=== PATIENT | female | born 1955 | race African-American/Black ===

== ENCOUNTER 2022-03-24 09:55 | Inpatient (IN) | payer MEDICARE, OTHER ==
[2022-03-24] MEDS ORDERED: methylPREDNISolone SOD SUCCI 125 MG/2 ML VIAL IV STA (09:56)
[2022-03-24] MEDS ORDERED: MAGNESIUM SULFATE-D5W PMX 1 GM in DEXTROSE/WATER 1 100ML.BAG IVPB STA (09:56)
[2022-03-24 10:12] LABS: Basophils # (A) 0.2 k/uL (0-0.2); Basophils % (A) 3 %; Eosinophils # (A) 0.1 k/uL (0-0.7); Eosinophils % (A) 1 %; HCT 44.7 % (34.0-46.0); HGB 14.5 gm/dL (11.4-16.0); Hypochromasia Slight; Lymphocytes # (A) 3.7 k/uL (1.0-4.8); Lymphocytes % (A) 40 %; MCH 29.3 pg (25.0-35.0); MCHC 32.5 g/dL (31.0-37.0); MCV 90.2 fL (80.0-100.0); Mean Platelet Volume 9.2; Monocytes # (A) 0.6 k/uL (0-1.0); Monocytes % (A) 6 %; Neutrophils # (A) 4.2 k/uL (1.3-7.7); Neutrophils % (A) 46 %; Platelet Count 221 k/uL (150-450); RBC 4.96 m/uL (3.80-5.40); RDW 13.7 % (11.5-15.5); WBC 9.1 k/uL (3.8-10.6)
--- NOTE | 2022-03-24 10:21 | ED ---
SOB HPI - General Chief Complaint: Shortness of Breath Stated Complaint: SOB Time Seen by Provider: 03/24/22 09:56 Source: patient, EMS, RN notes reviewed Mode of arrival: EMS Limitations: no limitations - History of Present Illness Initial Comments: 66-year-old female history of COPD who states she's had shortness of breath and exertional dyspnea for the past 3 days. Noted by paramedics have elevated blood pressure 180/120 and occasional PVCs on the monitor. He states she's had no overt fevers chills or sweats she did cough up some yellow phlegm but mostly is been clear. No chest pain reported no relief from her home medications. She states she had some relief from treatment given and route to. MD Complaint: shortness of breath, cough - Related Data Home Medications Medication Instructions Recorded Confirmed Metoprolol Succinate [Toprol XL] 100 mg PO DAILY 03/24/22 03/24/22 NIFEdipine [Procardia XL] 90 mg PO DAILY 03/24/22 03/24/22 cloNIDine HCL [Catapres] 0.3 mg PO TID 03/24/22 03/24/22 Allergies Allergy/AdvReac Type Severity Reaction Status Date / Time No Known Allergies Allergy Verified 03/24/22 12:13 Review of Systems ROS Statement: Those systems with pertinent positive or pertinent negative responses have been documented in the HPI. ROS Other: All systems not noted in ROS Statement are negative. Past Medical History Past Medical History: COPD, Hypertension, Renal Disease History of Any Multi-Drug Resistant Organisms: None Reported Past Surgical History: Cholecystectomy Additional Past Surgical History / Comment(s): Right kidney removed Past Psychological History: Depression Smoking Status: Former smoker Past Alcohol Use History: None Reported Past Drug Use History: None Reported General Exam - General Exam Comments Initial Comments: This is a well-developed awake alert oriented 4 female Limitations: no limitations General appearance: alert, anxious, in distress Head exam: Present: atraumatic, normocephalic, normal inspection Eye exam: Present: normal appearance, PERRL, EOMI. Absent: scleral icterus, conjunctival injection, periorbital swelling ENT exam: Present: normal exam, mucous membranes moist Neck exam: Present: normal inspection, full ROM, other. Absent: tenderness, meningismus, lymphadenopathy Respiratory exam: Present: wheezes, accessory muscle use. Absent: respiratory distress, rales, rhonchi, stridor Cardiovascular Exam: Present: normal rhythm, tachycardia, normal heart sounds. Absent: systolic murmur, diastolic murmur, rubs, gallop, clicks GI/Abdominal exam: Present: soft, normal bowel sounds. Absent: distended, tenderness, guarding, rebound, rigid Extremities exam: Present: normal inspection, full ROM, normal capillary refill. Absent: tenderness, pedal edema, joint swelling, calf tenderness Back exam: Present: normal inspection Neurological exam: Present: alert, oriented X3, CN II-XII intact Psychiatric exam: Present: normal affect, normal mood Skin exam: Present: warm, dry, intact, normal color. Absent: rash Course Vital Signs 03/24/22 03/24/22 03/24/22 09:56 10:39 10:53 Temperature 98.3 F Pulse Rate 134 H 104 H Respiratory 24 24 24 Rate Blood Pressure 174/117 171/117 O2 Sat by Pulse 99 100 Oximetry 03/24/22 03/24/22 03/24/22 10:59 11:05 11:10 Temperature Pulse Rate 106 H 101 H 109 H Respiratory 18 20 Rate Blood Pressure 146/99 O2 Sat by Pulse 99 Oximetry 03/24/22 13:17 Temperature Pulse Rate 96 Respiratory 20 Rate Blood Pressure 149/93 O2 Sat by Pulse 100 Oximetry - Reevaluation(s) Reevaluation #1: 03/24/22 13:41 Patient did get some relief after the initial treatment. Still diffusely wheezing however. Patient also has elevated d-dimer CAT scan ordered. Medical Decision Making - Lab Data Result diagrams: 03/24/22 10:03 03/24/22 10:03 Lab Results 03/24/22 03/24/22 03/24/22 Range/Units 10:03 10:03 10:03 WBC 9.1 (3.8-10.6) k/uL RBC 4.96 (3.80-5.40) m/uL Hgb 14.5 (11.4-16.0) gm/dL Hct 44.7 (34.0-46.0) % MCV 90.2 (80.0-100.0) fL MCH 29.3 (25.0-35.0) pg MCHC 32.5 (31.0-37.0) g/dL RDW 13.7 (11.5-15.5) % Plt Count 221 (150-450) k/uL MPV 9.2 Neutrophils % 46 % Lymphocytes % 40 % Monocytes % 6 % Eosinophils % 1 % Basophils % 3 % Neutrophils # 4.2 (1.3-7.7) k/uL Lymphocytes # 3.7 (1.0-4.8) k/uL Monocytes # 0.6 (0-1.0) k/uL Eosinophils # 0.1 (0-0.7) k/uL Basophils # 0.2 (0-0.2) k/uL Hypochromasia Slight PT 11.8 (9.0-12.0) sec INR 1.1 (<1.2) APTT 27.1 (22.0-30.0) sec D-Dimer 2.24 H (<0.60) mg/L FEU Sodium 139 (137-145) mmol/L Potassium 4.1 (3.5-5.1) mmol/L Chloride 99 (98-107) mmol/L Carbon Dioxide 29 (22-30) mmol/L Anion Gap 11 mmol/L BUN 10 (7-17) mg/dL Creatinine 0.83 (0.52-1.04) mg/dL Est GFR (CKD-EPI)AfAm 86 (>60 ml/min/1.73 sqM) Est GFR (CKD-EPI)NonAf 75 (>60 ml/min/1.73 sqM) Glucose 196 H (74-99) mg/dL Plasma Lactic Acid Dewayne (0.7-2.0) mmol/L Calcium 8.9 (8.4-10.2) mg/dL Magnesium 1.7 (1.6-2.3) mg/dL Total Bilirubin 0.7 (0.2-1.3) mg/dL AST 23 (14-36) U/L ALT 13 (4-34) U/L Alkaline Phosphatase 102 (38-126) U/L Troponin I (0.000-0.034) ng/mL NT-Pro-B Natriuret Pep pg/mL Total Protein 7.8 (6.3-8.2) g/dL Albumin 4.7 (3.5-5.0) g/dL Influenza Type A (PCR) (Not Detectd) Influenza Type B (PCR) (Not Detectd) RSV (PCR) (Not Detectd) SARS-CoV-2 (PCR) (Not Detectd) 03/24/22 03/24/22 03/24/22 Range/Units 10:03 10:03 10:03 WBC (3.8-10.6) k/uL RBC (3.80-5.40) m/uL Hgb (11.4-16.0) gm/dL Hct (34.0-46.0) % MCV (80.0-100.0) fL MCH (25.0-35.0) pg MCHC (31.0-37.0) g/dL RDW (11.5-15.5) % Plt Count (150-450) k/uL MPV Neutrophils % % Lymphocytes % % Monocytes % % Eosinophils % % Basophils % % Neutrophils # (1.3-7.7) k/uL Lymphocytes # (1.0-4.8) k/uL Monocytes # (0-1.0) k/uL Eosinophils # (0-0.7) k/uL Basophils # (0-0.2) k/uL Hypochromasia PT (9.0-12.0) sec INR (<1.2) APTT (22.0-30.0) sec D-Dimer (<0.60) mg/L FEU Sodium (137-145) mmol/L Potassium (3.5-5.1) mmol/L Chloride (98-107) mmol/L Carbon Dioxide (22-30) mmol/L Anion Gap mmol/L BUN (7-17) mg/dL Creatinine (0.52-1.04) mg/dL Est GFR (CKD-EPI)AfAm (>60 ml/min/1.73 sqM) Est GFR (CKD-EPI)NonAf (>60 ml/min/1.73 sqM) Glucose (74-99) mg/dL Plasma Lactic Acid Dewayne 1.1 (0.7-2.0) mmol/L Calcium (8.4-10.2) mg/dL Magnesium (1.6-2.3) mg/dL Total Bilirubin (0.2-1.3) mg/dL AST (14-36) U/L ALT (4-34) U/L Alkaline Phosphatase (38-126) U/L Troponin I <0.012 (0.000-0.034) ng/mL NT-Pro-B Natriuret Pep 181 pg/mL Total Protein (6.3-8.2) g/dL Albumin (3.5-5.0) g/dL Influenza Type A (PCR) (Not Detectd) Influenza Type B (PCR) (Not Detectd) RSV (PCR) (Not Detectd) SARS-CoV-2 (PCR) (Not Detectd) 03/24/22 Range/Units 10:14 WBC (3.8-10.6) k/uL RBC (3.80-5.40) m/uL Hgb (11.4-16.0) gm/dL Hct (34.0-46.0) % MCV (80.0-100.0) fL MCH (25.0-35.0) pg MCHC (31.0-37.0) g/dL RDW (11.5-15.5) % Plt Count (150-450) k/uL MPV Neutrophils % % Lymphocytes % % Monocytes % % Eosinophils % % Basophils % % Neutrophils # (1.3-7.7) k/uL Lymphocytes # (1.0-4.8) k/uL Monocytes # (0-1.0) k/uL Eosinophils # (0-0.7) k/uL Basophils # (0-0.2) k/uL Hypochromasia PT (9.0-12.0) sec INR (<1.2) APTT (22.0-30.0) sec D-Dimer (<0.60) mg/L FEU Sodium (137-145) mmol/L Potassium (3.5-5.1) mmol/L Chloride (98-107) mmol/L Carbon Dioxide (22-30) mmol/L Anion Gap mmol/L BUN (7-17) mg/dL Creatinine (0.52-1.04) mg/dL Est GFR (CKD-EPI)AfAm (>60 ml/min/1.73 sqM) Est GFR (CKD-EPI)NonAf (>60 ml/min/1.73 sqM) Glucose (74-99) mg/dL Plasma Lactic Acid Dewayne (0.7-2.0) mmol/L Calcium (8.4-10.2) mg/dL Magnesium (1.6-2.3) mg/dL Total Bilirubin (0.2-1.3) mg/dL AST (14-36) U/L ALT (4-34) U/L Alkaline Phosphatase (38-126) U/L Troponin I (0.000-0.034) ng/mL NT-Pro-B Natriuret Pep pg/mL Total Protein (6.3-8.2) g/dL Albumin (3.5-5.0) g/dL Influenza Type A (PCR) Not Detected (Not Detectd) Influenza Type B (PCR) Not Detected (Not Detectd) RSV (PCR) Not Detected (Not Detectd) SARS-CoV-2 (PCR) Not Detected (Not Detectd) - EKG Data -: EKG Interpreted by Me EKG Comments: Sinus tachycardia rate 119. Interval 187 QRS duration 75 daily since QTC 284/355 left ventricular hypertrophy noted. This EKG was read by me. - Radiology Data Radiology results: image reviewed (I did evaluate the imaging studies evidence of COPD no definitive consolidation. CAT scan showed no evidence of pulmonary emboli.) Critical Care Time Critical Care Time: Yes Total Critical Care Time: 31 Critical Care Time: Critical care time including initial presentation with history physical discussed with paramedics upon arrival multiple reevaluation the patient response to therapy discussed with patient family regarding findings discussed with the main physician admission orders and documentation of the above I did discuss case with Dr. mobley Disposition Clinical Impression: Acute exacerbation of chronic obstructive pulmonary disease, Acute respiratory distress syndrome in adult Disposition: ADMITTED IP TO THIS [facility] Condition: Fair Referrals: Nonstaff,Physician [Primary Care Provider] - 1-2 days Decision Date: 03/24/22 Decision Time: 13:43
[2022-03-24 10:25] LABS: INR 1.1 (<1.2); Partial Thromboplastin Time 27.1 sec (22.0-30.0); Prothrombin Time 11.8 sec (9.0-12.0)
[2022-03-24 10:28] LABS: Albumin 4.7 g/dL (3.5-5.0); Calcium 8.9 mg/dL (8.4-10.2); Magnesium 1.7 mg/dL (1.6-2.3); Potassium 4.1 mmol/L (3.5-5.1); Total Bilirubin 0.7 mg/dL (0.2-1.3); Total Protein 7.8 g/dL (6.3-8.2)
--- NOTE | 2022-03-24 10:30 | XR ---
EXAMINATION TYPE: XR chest 2V DATE OF EXAM: 03/24/2022 COMPARISON: NONE HISTORY: Difficulty in breathing. TECHNIQUE: Frontal and lateral views of the chest are obtained. FINDINGS: Background chronic emphysematous changes are present. There is no focal air space opacity, pleural effusion, or pneumothorax seen. Cardiomegaly with ectatic thoracic aorta is noted. The osse ous structures are intact. IMPRESSION: Chronic emphysematous change and cardiomegaly without acute pulmonary process.
[2022-03-24] MEDS: IPRATROPIUM-ALBUTEROL 3 ML NEB INHALATION STA (10:59)
--- NOTE | 2022-03-24 12:23 | CT ---
EXAMINATION TYPE: CT angio chest DATE OF EXAM: 03/24/2022 COMPARISON: Same day chest x-ray HISTORY: Elevated d-dimer, SOB. Hx COPD CT DLP: 223 mGycm. Automated Exposure Control for Dose Reduction was Utilized. CONTRAST: CTA scan of the thorax is performed with IV Contrast, patient injected with 100 mL of Isovue 370, pul monary embolism protocol. MIP Images are created on CT scanner and reviewed. FINDINGS: LUNGS: Exam slightly suboptimal as patient had difficulty holding breath. This limits evaluation for subcentimeter nodules. There is 5 mm calcified nodule or benign granuloma in the right middle lobe ax ial image 67. Moderate underlying emphysematous changes present greatest in the upper lungs. No suspi cious focal consolidation. No pleural effusion or pneumothorax seen bilaterally. Overall mosaic atten uation suggest mild edema. MEDIASTINUM: There is satisfactory enhancement of the pulmonary artery and its branches, there is no CT evidence for pulmonary embolism. Enlarged main pulmonary artery identified consistent with underly ing pulmonary artery hypertension. Satisfactory enhancement of adjacent ascending aorta measures up t o 4.2 cm in diameter axial image 52. Moderate peripheral calcified plaque in the aortic arch. No line ar hypodensity to suggest dissection. There are no greater than 1 cm noncalcified hilar or mediastina l lymph nodes. Mild cardiomegaly. No pericardial effusion is seen. Reflux of contrast into IVC and he patic veins suggests degree of right heart failure. Calcified right paratracheal and tracheobronchial lymph nodes are seen. OTHER: Occasional calcification in the spleen. Short term with calcified splenic artery. Severe fecal prominence in the region of the hepatic flexure is partially imaged. Remainder small and large bowel loops show no suspicious dilatation. Correlate clinically. IMPRESSION: 1. No CT evidence for acute pulmonary embolism. 2. Evidence of old granulomatous disease. Moderate emphysematous change and cardiomegaly without acut e pulmonary process. Correlate for mild CHF exacerbation. Correlate for underlying pulmonary artery h ypertension and right heart failure.
[2022-03-24] MEDS ORDERED: ACETAMINOPHEN TAB 325 MG TAB PO PRN (13:45)
[2022-03-24] MEDS ORDERED: NALOXONE 0.4 MG/ML 1 ML VIAL IVP PRN (13:45)
[2022-03-24] MEDS: IPRATROPIUM-ALBUTEROL 3 ML NEB INHALATION SCH ×2 (15:05→19:24)
[2022-03-24] MEDS: cloNIDine HCL 0.1 MG TAB PO SCH ×2 (15:22→21:50)
[2022-03-24] MEDS: methylPREDNISolone SOD SUCCI 125 MG/2 ML VIAL IV SCH ×2 (17:57→23:35)
[2022-03-24] MEDS ORDERED: hydrALAZINE HCL 25 MG TAB PO PRN (21:01)
[2022-03-24] MEDS ORDERED: DEXTROSE 50% SYRINGE 50 ML IVP PRN ×2 (21:01)
--- NOTE | 2022-03-24 21:08 | P.HPIM ---
History of Present Illness This is a pleasant 66 years old female with past medical history of hypertension, COPD, status post right kidney removal and depression. Presents because of dyspnea for 2 days duration Associated with coughing and yellow phlegm with no chest pain No diarrhea or vomiting. 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 She still smokes about 5 cigarettes specific today and she was counseled and she agrees and she wants nicotine patch. No alcohol or illicit drugs Vitals stable, blood pressure 140/100. She is afebrile. She is requiring 4 L of oxygen per minute to keep saturation mid 90s. CBC and BMP and liver enzymes are unremarkable. Troponin is negative. ProBNP is 181. anne and influenza virus is negative. CTA of the chest showing no pulmonary embolism but emphysematous changes. She is currently on Solu-Medrol and augmenting with pulmonary team consulted Review of Systems Review of systems CONSTITUTIONAL: No fever, no malaise, no fatigue. HEENT: No recent visual problems or hearing problems. Denied any sore throat. CARDIOVASCULAR: No orthopnea, PND, no palpitations, no syncope. PULMONARY: No chest wall tenderness, no hemoptysis. GASTROINTESTINAL: No diarrhea, no nausea, no vomiting, no abdominal pain. Normoactive bowel sounds. NEUROLOGICAL: No headaches, no weakness, no numbness. HEMATOLOGICAL: Denies any bleeding or petechiae. GENITOURINARY: Denies any burning micturition, frequency, or urgency. MUSCULOSKELETAL/RHEUMATOLOGICAL: Denies any joint pain, swelling, or any muscle pain. ENDOCRINE: Denies any polyuria or polydipsia. Past Medical History Past Medical History: COPD, Hypertension, Renal Disease History of Any Multi-Drug Resistant Organisms: None Reported Past Surgical History: Cholecystectomy Additional Past Surgical History / Comment(s): Right kidney removed Past Psychological History: Depression Smoking Status: Former smoker Past Alcohol Use History: None Reported Past Drug Use History: None Reported Medications and Allergies Home Medications Medication Instructions Recorded Confirmed Type Metoprolol Succinate [Toprol XL] 100 mg PO DAILY 03/24/22 03/24/22 History NIFEdipine [Procardia XL] 90 mg PO DAILY 03/24/22 03/24/22 History cloNIDine HCL [Catapres] 0.3 mg PO TID 03/24/22 03/24/22 History Allergies Allergy/AdvReac Type Severity Reaction Status Date / Time No Known Allergies Allergy Verified 03/24/22 12:13 Physical Exam Vitals: Vital Signs Temp Pulse Resp BP Pulse Ox 03/24/22 13:17 96 20 149/93 100 03/24/22 11:10 109 H 20 03/24/22 11:05 101 H 146/99 99 03/24/22 10:59 106 H 18 03/24/22 10:53 104 H 24 171/117 100 03/24/22 10:39 24 03/24/22 09:56 98.3 F 134 H 24 174/117 99 Intake and Output 03/23/22 03/24/22 03/24/22 22:59 06:59 14:59 Other: Weight 63.503 kg GENERAL: The patient is alert and oriented x3, not in any acute distress. Well developed, well nourished. HEENT: Pupils are round and equally reacting to light. EOMI. No scleral icterus. No conjunctival pallor. Normocephalic, atraumatic. No pharyngeal erythema. No thyromegaly. CARDIOVASCULAR: S1 and S2 present. No murmurs, rubs, or gallops. -PULMONARY: Chest is clear to auscultation,. Bilateral scattered wheezing no rackles. ABDOMEN: Soft, nontender, nondistended, normoactive bowel sounds. No palpable organomegaly. MUSCULOSKELETAL: No joint swelling or deformity. EXTREMITIES: No cyanosis, clubbing, or pedal edema. NEUROLOGICAL: Gross neurological examination did not reveal any focal deficits. SKIN: No rashes. no petechiae. Results CBC & Chem 7: 03/24/22 10:03 03/24/22 10:03 Labs: Abnormal Lab Results - Last 24 Hours (Table) 03/24/22 03/24/22 Range/Units 10:03 10:03 D-Dimer 2.24 H (<0.60) mg/L FEU Glucose 196 H (74-99) mg/dL Assessment and Plan Assessment: Acute COPD exacerbation Acute hypoxic respiratory failure Hypertension nicotine dependence History of nephrectomy Plan: Continue with Solu-Medrol Bronchodilator Italo creatinine Continue with antibiotics Pulmonary consult Labs and medication were reviewed.. Continue same treatment. Continue with symptomatic treatment. Resume home medication. Monitor lytes and vitals. DVT and GI prophylaxis. Further recommendations as per clinical course of the patient DVT prophylaxis: Subcutaneous heparin GI Prophylaxis: Pepcid Prognosis is guarded
[2022-03-24] MEDS: AMOXIC-POT CLAV 875-125MG 1 EACH TAB PO SCH (21:50)
[2022-03-24] MEDS: NICOTINE 14MG/24HR PATCH TRANSDERM SCH (21:50)
[2022-03-25] MEDS: methylPREDNISolone SOD SUCCI 125 MG/2 ML VIAL IV SCH ×4 (06:18→23:55)
[2022-03-25] MEDS: INSULIN ASPART (NovoLOG) 100 UNIT/ML VIAL SQ SCH ×4 (06:21→21:20)
[2022-03-25 06:24] LABS: Glucose,Whole Blood 183 mg/dL (70-110)
[2022-03-25] MEDS: NIFEdipine XL 90 MG TAB.ER.24 PO SCH ×2 (07:27→09:42)
[2022-03-25] MEDS: cloNIDine HCL 0.1 MG TAB PO SCH ×4 (07:27→21:20)
[2022-03-25] MEDS: METOPROLOL SUCCINATE (ER) 100 MG TAB.ER.24H PO SCH ×2 (07:27→09:42)
[2022-03-25 07:47] LABS: Basophils % (A) 1 %; Eosinophils % (A) 0 %; HCT 38.9 % (34.0-46.0); HGB 12.5 gm/dL (11.4-16.0); Hypochromasia Moderate; Lymphocytes % (A) 31 %; MCH 29.4 pg (25.0-35.0); MCHC 32.2 g/dL (31.0-37.0); MCV 91.2 fL (80.0-100.0); Monocytes # (A) 0.2 k/uL (0-1.0); Monocytes % (A) 7 %; Neutrophils # (A) 1.8 k/uL (1.3-7.7); Neutrophils % (A) 58 %; Platelet Count 187 k/uL (150-450); RBC 4.26 m/uL (3.80-5.40); RDW 13.5 % (11.5-15.5); WBC 3.2 k/uL (3.8-10.6)
[2022-03-25] MEDS ORDERED: ALBUTEROL HFA INHALER INHALATION PRN (08:17)
[2022-03-25] MEDS ORDERED: ALBUTEROL HFA INHALER INHALATION STA (08:17)
[2022-03-25] MEDS: IPRATROPIUM-ALBUTEROL 3 ML NEB INHALATION SCH ×4 (08:38→21:00)
[2022-03-25] MEDS ORDERED: FAMOTIDINE 20 MG/2 ML VIAL IV SCH (09:00)
[2022-03-25 09:40] LABS: African American GFR (CKD) 49.9 (60.0-200.0); Anion Gap 10.7 mmol/L (10.00-18.00); BUN/Creat Ratio 15.46 Ratio (12.00-20.00); Blood Urea Nitrogen 20.1 mg/dL (9.0-27.0); Calcium 9.3 mg/dL (8.7-10.3); Carbon Dioxide 31.3 mmol/L (20.0-27.5); Potassium 4.1 mmol/L (3.5-5.5)
[2022-03-25] MEDS: NICOTINE 14MG/24HR PATCH TRANSDERM SCH (09:42)
[2022-03-25] MEDS: LORATADINE 10 MG TAB PO SCH (09:42)
[2022-03-25] MEDS: AMOXIC-POT CLAV 875-125MG 1 EACH TAB PO SCH ×2 (09:42→23:51)
[2022-03-25] MEDS: HEPARIN SODIUM,PORCINE/PF 5,000 UNIT/0.5 ML SYRINGE SQ SCH ×2 (09:47→21:20)
--- NOTE | 2022-03-25 10:51 | P.PN ---
Subjective This is a pleasant 66 years old female with past medical history of hypertension, COPD, status post right kidney removal and depression. Presents because of dyspnea for 2 days duration Associated with coughing and yellow phlegm with no chest pain No diarrhea or vomiting. 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 She still smokes about 5 cigarettes specific today and she was counseled and she agrees and she wants nicotine patch. No alcohol or illicit drugs Vitals stable, blood pressure 140/100. She is afebrile. She is requiring 4 L of oxygen per minute to keep saturation mid 90s. CBC and BMP and liver enzymes are unremarkable. Troponin is negative. ProBNP is 181. anne and influenza virus is negative. CTA of the chest showing no pulmonary embolism but emphysematous changes. She is currently on Solu-Medrol and augmenting with pulmonary team consulted 03/25/2022 patient agrees little easier today but still has congestion and still has wheezing and still complaining of from exertional dyspnea with walking especially given her way back, she uses albuterol at home she is saturating well on her home dose of 4 L of oxygen. Labs reviewed. Creatinine went of 0.9-1.3. And tinea on Solu-Medrol 60 mg and augmenting. No other complaints or GI or urinary complaints. Report of urinalysis and bladder scan and was going to recheck her creatinine. Objective - Vital Signs Vital signs: Vital Signs Temp 98.5 F 03/25/22 08:00 Pulse 96 03/25/22 08:54 Resp 20 03/25/22 08:00 BP 144/77 03/25/22 08:00 Pulse Ox 99 03/25/22 08:41 FiO2 Intake & Output 03/24/22 03/25/22 03/25/22 18:59 06:59 18:59 Intake Total 580 Output Total 400 Balance 180 Weight 63.503 kg 63.503 kg Intake: Intake, IV Titration 100 Amount Magnesium Sulfate-D5w Pmx 100 1 gm In Dextrose/Water 1 100ml.bag @ 100 mls/hr IVPB ONCE STA Rx#: [id number] Oral 480 Output: Urine 400 - Exam GENERAL: The patient is alert and oriented x3, not in any acute distress. Well developed, well nourished. HEENT: Pupils are round and equally reacting to light. EOMI. No scleral icterus. No conjunctival pallor. Normocephalic, atraumatic. No pharyngeal erythema. No thyromegaly. CARDIOVASCULAR: S1 and S2 present. No murmurs, rubs, or gallops. -PULMONARY: Chest is clear to auscultation,. Bilateral scattered wheezing no rackles. ABDOMEN: Soft, nontender, nondistended, normoactive bowel sounds. No palpable organomegaly. MUSCULOSKELETAL: No joint swelling or deformity. EXTREMITIES: No cyanosis, clubbing, or pedal edema. NEUROLOGICAL: Gross neurological examination did not reveal any focal deficits. SKIN: No rashes. no petechiae. - Labs CBC & Chem 7: 03/25/22 06:17 03/25/22 06:17 Labs: Abnormal Lab Results - Last 24 Hours (Table) 03/24/22 03/25/22 03/25/22 Range/Units 10:13 06:17 06:17 WBC 3.2 L (3.8-10.6) k/uL Chloride 94 L (96-109) mmol/L Carbon Dioxide 31.3 H (20.0-27.5) mmol/L Est GFR (CKD-EPI)AfAm 49.9 L (60.0-200.0) Est GFR (CKD-EPI)NonAf 43.0 L (60.0-200.0) Glucose 171 H (70-110) mg/dL POC Glucose (mg/dL) (70-110) mg/dL Hemoglobin A1c 6.4 H (0.0-6.0) % 03/25/22 Range/Units 06:18 WBC (3.8-10.6) k/uL Chloride (96-109) mmol/L Carbon Dioxide (20.0-27.5) mmol/L Est GFR (CKD-EPI)AfAm (60.0-200.0) Est GFR (CKD-EPI)NonAf (60.0-200.0) Glucose (70-110) mg/dL POC Glucose (mg/dL) 183 H (70-110) mg/dL Hemoglobin A1c (0.0-6.0) % Assessment and Plan Assessment: Acute COPD exacerbation Acute on chronic hypoxic respiratory failure Elevated creatinine, Hypertension nicotine dependence History of nephrectomy Plan: Continue with Solu-Medrol Bronchodilator [place]alo creatinine Continue with antibiotics currently on Augmentin Pulmonary consult Monitor creatinine. Check UA and bladder scan Labs and medication were reviewed.. Continue same treatment. Continue with symptomatic treatment. Resume home medication. Monitor lytes and vitals. DVT and GI prophylaxis. Further recommendations as per clinical course of the patient DVT prophylaxis: Subcutaneous heparin GI Prophylaxis: Pepcid Prognosis is guarded
[2022-03-25 11:43] LABS: Glucose,Whole Blood 161 mg/dL (70-110)
[2022-03-25] MEDS: FAMOTIDINE 20 MG TAB PO SCH (11:53)
[2022-03-25] MEDS: SODIUM CHLORIDE 0.9% 1,000 ML IV SCH ×2 (11:53→23:55)
--- NOTE | 2022-03-25 12:14 | P.NPCON ---
History of Present Illness - Reason for Consult acute renal failure - History of Present Illness Patient is a 66-year-old female with history of hypertension, COPD, history of right nephrectomy in 2006 for enlarged kidney. Patient states it was not due to cancer. Patient is admitted to the hospital with complaints of shortness of breath. She has had cough but no history of fever. No complaints of abdominal pain nausea or vomiting. No previous history of kidney diseases. No history of use of NSAIDs Patient has been voiding well. To be started on IV fluids. Serum creatinine was 0.8 on in admission and increased to 1.3 today. Review of Systems As per HPI Past Medical History Past Medical History: COPD, Hypertension, Renal Disease History of Any Multi-Drug Resistant Organisms: None Reported Past Surgical History: Cholecystectomy Additional Past Surgical History / Comment(s): Right kidney removed Past Anesthesia/Blood Transfusion Reactions: No Reported Reaction Past Psychological History: Depression Smoking Status: Former smoker Past Alcohol Use History: None Reported Past Drug Use History: None Reported Medications and Allergies Home Medications Medication Instructions Recorded Confirmed Type Metoprolol Succinate [Toprol XL] 100 mg PO DAILY 03/24/22 03/24/22 History NIFEdipine [Procardia XL] 90 mg PO DAILY 03/24/22 03/24/22 History cloNIDine HCL [Catapres] 0.3 mg PO TID 03/24/22 03/24/22 History Allergies Allergy/AdvReac Type Severity Reaction Status Date / Time No Known Allergies Allergy Verified 03/24/22 12:13 Physical Exam Vitals: Vital Signs Temp Pulse Pulse Resp BP BP Pulse Ox 03/25/22 11:58 94 03/25/22 11:48 100 03/25/22 08:54 96 03/25/22 08:41 102 H 99 03/25/22 08:00 98.5 F 85 20 144/77 100 03/25/22 02:00 98.3 F 74 16 129/82 93 L 03/24/22 20:00 98.2 F 109 H 22 179/97 97 03/24/22 19:39 100 03/24/22 19:27 102 H 03/24/22 17:07 98 18 149/101 99 03/24/22 15:22 106 H 03/24/22 15:09 102 H 03/24/22 13:17 96 20 149/93 100 Intake and Output 03/24/22 03/25/22 03/25/22 22:59 06:59 14:59 Intake Total 580 Output Total 400 Balance 180 Intake: Intake, IV Titration 100 Amount Magnesium Sulfate-D5w Pmx 100 1 gm In Dextrose/Water 1 100ml.bag @ 100 mls/hr IVPB ONCE STA Rx#: [id number] Oral 480 Output: Urine 400 Other: Weight 63.503 kg Patient is awake, comfortable, not in any acute distress. Receiving an updraft treatment Examination of the heart S1 and S2 Examination of the lungs bilateral breath sounds are heard Abdomen is soft nontender distended Examination of lower extremity shows no significant edema SUPPLY ANALYST exam grossly intact Results - Lab Results Most recent lab results Calcium 9.3 mg/dL (8.7-10.3) 03/25/22 06:17 Magnesium 1.7 mg/dL (1.6-2.3) 03/24/22 10:03 03/25/22 06:17 03/25/22 06:17 Assessment and Plan Assessment: 1. Acute kidney injury most likely prerenal. Agree with IV fluids. Check urine analysis. Rule out urinary retention. Check bladder scan and ultrasound of the kidneys. 2. Dyspnea with acute Hypoxic respiratory failure secondary to COPD exacerbatio n 3. History of right nephrectomy for enlarged kidney according to the patient in 2006. 4. Status post CTA on 03/24/2022 with no evidence of PE Plan: Check bladder scan Check ultrasound of the kidneys Check urine analysis Agree with IV fluids Repeat labs in a.m. Avoid nephrotoxic agents next Thank you for the consultation. We will continue to follow the patient with you during her hospitalization
[2022-03-25 12:59] LABS: Appearance,Urine Clear (Clear); Bilirubin,Urine Negative (Negative); Blood,Urine Negative (Negative); Color,Urine Light Yellow; Glucose,Urine (UA) Negative (Negative); Ketones,Urine Negative (Negative); Leukocyte Esterase,Urine Negative (Negative); Mucus,Urine Rare /hpf; Nitrite,Urine Negative (Negative); Protein,Urine 1+ (Negative); RBC,Urine <1 /hpf (0-5); Specific Gravity,Urine 1.016 (1.001-1.035); Squamous Epithelial Cell,Urine 1 /hpf (0-4); Urobilinogen,Urine <2.0 mg/dL (<2.0); WBC,Urine 1 /hpf (0-5)
--- NOTE | 2022-03-25 14:40 | CDI ---
Documentation Clarification Form Date: 03/25/2022 02:19:00 PM From: Sepideh Rausch RN CCDS Admit Date: 03/24/2022 01:45:00 PM Patient Name: Светлана Dunaway Visit Number: [id number] Discharge Date: ATTENTION: The Clinical Documentation Specialists (CDI) and [facility] Coding Staff appreciate your assistance in clarifying documentation. Please respond to the clarification below the line at the bottom and electronically sign. The CDI & [facility] Coding staff will review the response and follow-up if needed. Please note: Queries are made part of the Legal Health Record. If you have any questions, please contact the author of this message via ITS. Dr. Null E Cony Acute hypoxic respiratory failure is documented 03/24, H&P which may lack sufficient clinical evidence/support in the medical record. Additional clarification is requested. History/Risk Factors: 66-year-old female presents to the ED with shortness of breath and exertional dyspnea for the past three days. Medical history: COPD, Home dose of oxygen 4L HTN and Renal disease. 03/25, Medicine note. Clinical Indicators: Chest CT, 03/24: Evidence of old granulomatous disease. Moderate emphysematous change and cardiomegaly without acute pulmonary process. Corelate for mild CHF exacerbation. H&P Pulmonary assessment, 03/24: Chest is clear to auscultation. Bilateral scattered wheezing no crackles. Treatment: 03/24 Duoneb Inhalation x1; 03/24 Magnesium IVPB x 1; 03/24 SoluMedrol 125mg IV x 1; 03/24 Duoneb Inhalation QID [facility]; 03/24 SoluMedrol 60mg IV Q6HR Oxygen: 03/24 09:56 SpO2 99% 5L nasal cannula, RR 24; 03/24 10:53 SpO2 100% 4L nasal cannula, RR 24 Home Oxygen 4L Please clarify if Acute Hypoxic Respiratory is a valid diagnosis? [ ] Yes, Acute Hypoxic respiratory failure is present as evidence by (additional clinical support): [ ] No, Acute Hypoxic respiratory failure is ruled out [ ] Other (please specify diagnosis) [ ] Unable to determine (Template Last Revised: July 2020) dx Acute Hypoxic respiratory failure MTDD
--- NOTE | 2022-03-25 14:46 | P.CNPUL ---
History of Present Illness Consult date: 03/25/22 Requesting physician: Chaka Donnelly Reason for consult: dyspnea, COPD Chief complaint: Shortness of breath History of present illness: This is a pleasant 66-year-old female patient who resides in the [place] area. She's been here visiting her son. She does have a 50 year smoking history. She does have COPD. She does have Trelegy, albuterol HFA and nebulized treatments in the outpatient setting. She also has a history of hypertension, right nephrectomy, depression. Over the past 1 week she's had worsening shortness of breath, cough and congestion. She presented here to the emergency room yesterday for the same. Chest x-ray reveals chronic emphysematous changes and cardiomegaly without acute pulmonary process. CT angiogram ruled out pulmonary embolism. There is evidence of old granulomatous disease. Moderate emphysematous changes and cardiomegaly without acute pulmonary process. Possible mild congestive heart failure. EKG reveals sinus tachycardia without acute ST or T wave abnormalities. Blood cultures reveal no growth to date. White count 3.2. Hemoglobin 12.5. INR 1.1. D-dimer 2.24. Sodium 136. Potassium 4.1. BUN 20. Creatinine 1.3. Glucose 171. Influenza screen negative. RSV screen negative. Coronavirus negative. Urinalysis negative. She is seen today in consultation on the regular medical floor. She currently sitting up in bed. Awake and alert in no acute distress. She is maintaining O2 saturations in the upper 90s on 4 L/m per nasal cannula. She is dyspneic with conversation. Dyspneic with minimal exertion. She's been initiated on DuoNeb inhalations, Solu-Medrol, antibiotics in the form of Augmentin. NicoDerm patch in place. Heparin for DVT prophylaxis. Review of Systems REVIEW OF SYSTEMS: CONSTITUTIONAL: Denies any recent significant weight loss or weight gain. EYES: Denies change in vision. EARS, NOSE, MOUTH, THROAT: Denies headaches, denies sore throat. CARDIOVASCULAR: Denies chest pain, palpitations or syncopal episodes. RESPIRATORY: Positive for shortness of breath, cough, congestion or hemoptysis. GASTROINTESTINAL: Denies change in appetite, denies abdominal pain GENITOURINARY: Denies hematuria, denies infections. MUSKULOSKELETAL: Denies pain, denies swelling. INTEGUMENTARY: Denies rash, denies eczema. NEUROLOGICAL: Denies recent memory loss, no recent seizure activity. PSYCHIATRIC: Denies anxiety, denies depression. HEMATOLOGIC/LYMPHATIC: Denies anemia, denies enlarged lymph nodes. Past Medical History Past Medical History: COPD, Hypertension, Renal Disease History of Any Multi-Drug Resistant Organisms: None Reported Past Surgical History: Cholecystectomy Additional Past Surgical History / Comment(s): Right kidney removed Past Anesthesia/Blood Transfusion Reactions: No Reported Reaction Past Psychological History: Depression Smoking Status: Former smoker Past Alcohol Use History: None Reported Past Drug Use History: None Reported Medications and Allergies Home Medications Medication Instructions Recorded Confirmed Type Metoprolol Succinate [Toprol XL] 100 mg PO DAILY 03/24/22 03/24/22 History NIFEdipine [Procardia XL] 90 mg PO DAILY 03/24/22 03/24/22 History cloNIDine HCL [Catapres] 0.3 mg PO TID 03/24/22 03/24/22 History Allergies Allergy/AdvReac Type Severity Reaction Status Date / Time No Known Allergies Allergy Verified 03/24/22 12:13 Physical Exam Vitals: Vital Signs Temp Pulse Pulse Resp BP BP Pulse Ox 03/25/22 11:58 94 03/25/22 11:48 100 03/25/22 08:54 96 03/25/22 08:41 102 H 99 03/25/22 08:00 98.5 F 85 20 144/77 100 03/25/22 02:00 98.3 F 74 16 129/82 93 L 03/24/22 20:00 98.2 F 109 H 22 179/97 97 03/24/22 19:39 100 03/24/22 19:27 102 H 03/24/22 17:07 98 18 149/101 99 03/24/22 15:22 106 H 03/24/22 15:09 102 H Intake and Output 03/24/22 03/25/22 03/25/22 22:59 06:59 14:59 Intake Total 580 Output Total 400 Balance 180 Intake: Intake, IV Titration 100 Amount Magnesium Sulfate-D5w Pmx 100 1 gm In Dextrose/Water 1 100ml.bag @ 100 mls/hr IVPB ONCE [facility] Rx#: [id number] Oral 480 Output: Urine 400 Other: Voiding Method Bedside Commode Weight 63.503 kg GENERAL EXAM: Alert, pleasant 66-year-old female, on 4 L nasal cannula, fairly comfortable in no apparent distress. HEAD: Normocephalic. EYES: Normal reaction of pupils, equal size. NOSE: Clear with pink turbinates. THROAT: No erythema or exudates. NECK: No masses, no JVD. CHEST: No chest wall deformity. LUNGS: Equal air entry with bilateral end expiratory wheeze, diminished. CVS: S1 and S2 normal with no audible murmur, regular rhythm. ABDOMEN: No hepatosplenomegaly, normal bowel sounds, no guarding or rigidity. SPINE: No scoliosis or deformity SKIN: No rashes CENTRAL NERVOUS SYSTEM: No focal deficits, tone is normal in all 4 extremities. EXTREMITIES: There is no peripheral edema. No clubbing, no cyanosis. Peripheral pulses are intact. Results - Laboratory Findings CBC and BMP: 03/25/22 06:17 03/25/22 06:17 PT/INR, D-dimer PT 11.8 sec (9.0-12.0) 03/24/22 10:03 INR 1.1 (<1.2) 03/24/22 10:03 D-Dimer 2.24 mg/L FEU (<0.60) H 03/24/22 10:03 Abnormal lab findings: Abnormal Labs 03/24/22 03/24/22 03/24/22 10:03 10:03 10:13 WBC D-Dimer 2.24 H Chloride Carbon Dioxide Est GFR (CKD-EPI)AfAm Est GFR (CKD-EPI)NonAf Glucose 196 H POC Glucose (mg/dL) Hemoglobin A1c 6.4 H Urine Protein Urine Mucus 03/25/22 03/25/22 03/25/22 06:17 06:17 06:18 WBC 3.2 L D-Dimer Chloride 94 L Carbon Dioxide 31.3 H Est GFR (CKD-EPI)AfAm 49.9 L Est GFR (CKD-EPI)NonAf 43.0 L Glucose 171 H POC Glucose (mg/dL) 183 H Hemoglobin A1c Urine Protein Urine Mucus 03/25/22 03/25/22 11:41 12:09 WBC D-Dimer Chloride Carbon Dioxide Est GFR (CKD-EPI)AfAm Est GFR (CKD-EPI)NonAf Glucose POC Glucose (mg/dL) 161 H Hemoglobin A1c Urine Protein 1+ H Urine Mucus Rare H - Diagnostic Findings Chest x-ray: image reviewed CT scan - chest: image reviewed Assessment and Plan Assessment: Acute exacerbation of chronic obstructive pulmonary disease Acute on chronic hypoxemic respiratory failure secondary to above Chronic and ongoing tobacco dependence of 50 years History of hypertension History of depression Plan: The patient was seen and evaluated Chest x-ray, CAT scan, labs and medications reviewed Continue DuoNeb inhalations, IV solu Medrol Add Pulmicort and Perforomist inhalations Check a pro-calcitonin Continue Augmentin for now Educated regarding the importance of complete smoking cessation NicoDerm patch has been added Titrate the FiO2 as tolerated We will continue to follow and make further recommendations based on her c linical status I have personally seen and examined the patient, performed the documentation and the assessment and plan as written. Number of minutes spent on the visit: 10.
--- NOTE | 2022-03-25 15:00 | US ---
EXAMINATION TYPE: US kidneys/renal and bladder DATE OF EXAM: 03/25/2022 COMPARISON: NONE CLINICAL HISTORY: [place]. [place]. Hx enlarged right kidney per patient, right kidney removed in 2006. EXAM MEASUREMENTS: Right Kidney: Surgically absent. Left Kidney: 12.4 x 5.6 x 5.1 cm Exam is limited due to movement and gas. Right Kidney: Surgically absent. Left Kidney: Appears slightly enlarged versus upper limits. Anechoic area seen upper suggestive of re nal sinus cyst versus focal prominent calyx: 3.2 x 2.2 x 1.1 cm. Bladder: Appears wnl. Bilateral Jets seen: Unable to evaluate due to too much movement from very heavy patient breathing. IMPRESSION: 1. Limited examination due to patient movement and overlying bowel gas. 2. No hydronephrosis or shadowing renal calculi. 3. Right kidney surgically absent. 4. Left upper pole renal sinus cyst versus focal prominent calyx.
[2022-03-25 16:29] LABS: Glucose,Whole Blood 163 mg/dL (70-110)
[2022-03-25 20:00] LABS: Glucose,Whole Blood 157 mg/dL (70-110)
[2022-03-25] MEDS: BUDESONIDE 1 MG/2 ML NEBU INHALATION SCH (21:00)
[2022-03-25] MEDS ORDERED: FAMOTIDINE 20 MG TAB PO SCH (21:00)
[2022-03-25] MEDS: FORMOTEROL FUMARATE 20 MCG/2 ML NEBU INHALATION SCH (21:00)
[2022-03-25 21:44] LABS: Glucose,Whole Blood 182 mg/dL (70-110)
[2022-03-25] MEDS: IPRATROPIUM-ALBUTEROL 3 ML NEB INHALATION STA (21:47)
[2022-03-25 22:11] LABS: ABG Base Excess 3.1 mmol/L; ABG HCO3 33 mmol/L (21-25); ABG Oxygen Saturation 98.4 % (94-97); ABG PO2 139 mmHg (83-108); ABG TCO2 36 mmol/L (19-24); Allen Test Performed? Yes
[2022-03-25] MEDS ORDERED: IPRATROPIUM-ALBUTEROL 3 ML NEB INHALATION PRN (22:15)
[2022-03-25 22:17] LABS: ABG PCO2 106 mmHg (35-45)
[2022-03-25 23:19] LABS: Glucose,Whole Blood 190 mg/dL (70-110)
[2022-03-26 00:21] LABS: Basophils % (A) 1 %; Eosinophils # (A) 0.1 k/uL (0-0.7); Eosinophils % (A) 1 %; HCT 37.6 % (34.0-46.0); HGB 12.4 gm/dL (11.4-16.0); Hypochromasia Slight; Lymphocytes # (A) 0.7 k/uL (1.0-4.8); Lymphocytes % (A) 10 %; MCH 29.5 pg (25.0-35.0); MCHC 32.9 g/dL (31.0-37.0); MCV 89.6 fL (80.0-100.0); Mean Platelet Volume 9.4; Monocytes # (A) 0.4 k/uL (0-1.0); Monocytes % (A) 6 %; Neutrophils # (A) 6.3 k/uL (1.3-7.7); Neutrophils % (A) 82 %; Platelet Count 195 k/uL (150-450); RBC 4.19 m/uL (3.80-5.40); RDW 13.6 % (11.5-15.5); WBC 7.7 k/uL (3.8-10.6)
[2022-03-26 00:39] LABS: Calcium 8.8 mg/dL (8.4-10.2); Magnesium 2.1 mg/dL (1.6-2.3); Potassium 4.5 mmol/L (3.5-5.1)
[2022-03-26] MEDS: methylPREDNISolone SOD SUCCI 125 MG/2 ML VIAL IV SCH ×4 (06:26→23:38)
[2022-03-26 07:08] LABS: Glucose,Whole Blood 152 mg/dL (70-110)
--- NOTE | 2022-03-26 07:10 | XR ---
EXAMINATION TYPE: XR chest 1V DATE OF EXAM: 03/26/2022 5:34 AM COMPARISON: Chest radiograph from two days prior. TECHNIQUE: XR chest 1V Portable AP radiograph of the chest. CLINICAL INDICATION:Female, 66 years old with history of SOB; FINDINGS: Lungs/Pleura: There is flattening of the diaphragm with increased lucency of the lungs. No evidence o f pneumothorax, pleural effusion or focal consolidation. Pulmonary vascularity: Unremarkable. Heart/mediastinum: Cardiomediastinal silhouette is unremarkable. Musculoskeletal: No acute osseous pathology. IMPRESSION: Similar cardiomegaly and COPD.
[2022-03-26 07:17] LABS: Basophils % (A) 1 %; Eosinophils # (A) 0.1 k/uL (0-0.7); Eosinophils % (A) 1 %; HCT 39.8 % (34.0-46.0); HGB 12.9 gm/dL (11.4-16.0); Hypochromasia Slight; Lymphocytes % (A) 17 %; MCH 29.1 pg (25.0-35.0); MCHC 32.5 g/dL (31.0-37.0); MCV 89.6 fL (80.0-100.0); Mean Platelet Volume 9.9; Monocytes # (A) 0.4 k/uL (0-1.0); Monocytes % (A) 6 %; Neutrophils # (A) 4.3 k/uL (1.3-7.7); Neutrophils % (A) 73 %; Platelet Count 204 k/uL (150-450); RBC 4.45 m/uL (3.80-5.40); RDW 13.6 % (11.5-15.5); WBC 5.9 k/uL (3.8-10.6)
[2022-03-26] MEDS: INSULIN ASPART (NovoLOG) 100 UNIT/ML VIAL SQ SCH ×4 (07:17→20:30)
[2022-03-26 07:34] LABS: African American GFR (CKD) 51 (>60 ml/min/1.73 sqM); Anion Gap 6 mmol/L; Blood Urea Nitrogen 32 mg/dL (7-17); Calcium 9.1 mg/dL (8.4-10.2); Carbon Dioxide 32 mmol/L (22-30); Chloride 100 mmol/L (98-107); Glucose 149 mg/dL (74-99); Magnesium 2.2 mg/dL (1.6-2.3); Non-African American GFR(CKD) 45 (>60 ml/min/1.73 sqM); Potassium 4.4 mmol/L (3.5-5.1); Sodium 138 mmol/L (137-145)
[2022-03-26] MEDS: cloNIDine HCL 0.1 MG TAB PO SCH ×3 (08:38→21:14)
[2022-03-26] MEDS: LORATADINE 10 MG TAB PO SCH (08:38)
[2022-03-26] MEDS: NICOTINE 14MG/24HR PATCH TRANSDERM SCH (08:38)
[2022-03-26] MEDS: FAMOTIDINE 20 MG TAB PO SCH (08:38)
[2022-03-26] MEDS: HEPARIN SODIUM,PORCINE/PF 5,000 UNIT/0.5 ML SYRINGE SQ SCH ×2 (08:38→20:31)
[2022-03-26] MEDS: AMOXIC-POT CLAV 875-125MG 1 EACH TAB PO SCH ×2 (08:38→20:31)
[2022-03-26] MEDS: NIFEdipine XL 90 MG TAB.ER.24 PO SCH (08:38)
[2022-03-26] MEDS: METOPROLOL SUCCINATE (ER) 100 MG TAB.ER.24H PO SCH (08:38)
[2022-03-26] MEDS: IPRATROPIUM-ALBUTEROL 3 ML NEB INHALATION SCH ×4 (09:18→19:27)
[2022-03-26] MEDS: BUDESONIDE 1 MG/2 ML NEBU INHALATION SCH ×2 (09:18→19:27)
[2022-03-26] MEDS: FORMOTEROL FUMARATE 20 MCG/2 ML NEBU INHALATION SCH ×2 (09:18→19:27)
--- NOTE | 2022-03-26 11:42 | P.PN ---
Subjective Progress Note Date: 03/26/22 This is a pleasant 66-year-old female patient who resides in the [place] area. She's been here visiting her son. She does have a 50 year smoking history. She does have COPD. She does have Trelegy, albuterol HFA and nebulized treatments in the outpatient setting. She also has a history of hypertension, right nephrectomy, depression. Over the past 1 week she's had worsening shortness of breath, cough and congestion. She presented here to the emergency room yesterday for the same. Chest x-ray reveals chronic emphysematous changes and cardiomegaly without acute pulmonary process. CT angiogram ruled out pulmonary embolism. There is evidence of old granulomatous disease. Moderate emphysematous changes and cardiomegaly without acute pulmonary process. Possible mild congestive heart failure. EKG reveals sinus tachycardia without acute ST or T wave abnormalities. Blood cultures reveal no growth to date. White count 3.2. Hemoglobin 12.5. INR 1.1. D-dimer 2.24. Sodium 136. Potassium 4.1. BUN 20. Creatinine 1.3. Glucose 171. Influenza screen negative. RSV screen negative. Coronavirus negative. Urinalysis negative. She is seen today in consultation on the regular medical floor. She currently sitting up in bed. Awake and alert in no acute distress. She is maintaining O2 saturations in the upper 90s on 4 L/m per nasal cannula. She is dyspneic with conversation. Dyspneic with minimal exertion. She's been initiated on DuoNeb inhalations, Solu-Medrol, antibiotics in the form of Augmentin. NicoDerm patch in place. Heparin for DVT prophylaxis. The patient is seen today 03/26/2022 and follow-up in the intensive care unit. Last night approximately 9:30 PM the patient was found unresponsive and with agonal breathing. She did have a pulse at that time. This is about 5 minutes after she had been seen and had received a breathing treatment. She did require respiratory assistance with Ambu bag and subsequent BiPAP support. When [employer] and hospitalist arrived the patient was alert and responsive. Blood gases revealed a pO2 of 139, pCO2 of 106 and a pH of 7.10 on 50% FiO2. He was transferred to the intensive care unit for closer observation. She is seen today currently on the BiPAP at 14/7 and 30% FiO2. She is awake and alert. Normal saline at 75 mL per hour. She is continued on DuoNeb inhalations, Pulmicort and Perforomist inhalations, IV Solu-Medrol. Empiric antibiotics in the form of Augmentin. NicoDerm patch in place. Objective - Vital Signs Vital signs: Vital Signs Temp 98.4 F 03/26/22 08:00 Pulse 78 03/26/22 11:00 Resp 31 H 03/26/22 11:00 BP 166/122 03/26/22 11:00 Pulse Ox 94 L 03/26/22 11:00 FiO2 30 03/26/22 11:00 Intake & Output 03/25/22 03/26/22 03/26/22 18:59 06:59 18:59 Intake Total 525 375 Output Total 300 Balance 525 75 Intake: IV 525 375 Sodium Chloride 0.9% 1, 525 375 000 ml @ 75 mls/hr IV . [id number] [facility] Rx#:[id number] Output: Urine 300 Other: Voiding Method Bedside Commode Bedside Commode External Catheter Bedpan # Voids 3 1 - Exam GENERAL EXAM: Alert, pleasant 66-year-old female, on BiPAP 14/7 and 30% FiO2, f airly comfortable in no apparent distress. HEAD: Normocephalic. EYES: Normal reaction of pupils, equal size. NOSE: Clear with pink turbinates. THROAT: No erythema or exudates. NECK: No masses, no JVD. CHEST: No chest wall deformity. LUNGS: Equal air entry with bilateral end expiratory wheeze, diminished. CVS: S1 and S2 normal with no audible murmur, regular rhythm. ABDOMEN: No hepatosplenomegaly, normal bowel sounds, no guarding or rigidity. SPINE: No scoliosis or deformity SKIN: No rashes CENTRAL NERVOUS SYSTEM: No focal deficits, tone is normal in all 4 extremities. EXTREMITIES: There is no peripheral edema. No clubbing, no cyanosis. Peripheral pulses are intact. - Labs CBC & Chem 7: 03/26/22 07:00 03/26/22 07:00 Labs: Abnormal Lab Results - Last 24 Hours (Table) 03/25/22 03/25/22 03/25/22 Range/Units 11:41 12:09 16:27 Lymphocytes # (1.0-4.8) k/uL ABG pH (7.35-7.45) ABG pCO2 (35-45) mmHg ABG pO2 (83-108) mmHg ABG HCO3 (21-25) mmol/L ABG Total CO2 (19-24) mmol/L ABG O2 Saturation (94-97) % Sodium (137-145) mmol/L Chloride (98-107) mmol/L Carbon Dioxide (22-30) mmol/L BUN (7-17) mg/dL Creatinine (0.52-1.04) mg/dL Glucose (74-99) mg/dL POC Glucose (mg/dL) 161 H 163 H (70-110) mg/dL Urine Protein 1+ H (Negative) Urine Mucus Rare H (None) /hpf 03/25/22 03/25/22 03/25/22 Range/Units 19:58 21:40 22:08 Lymphocytes # (1.0-4.8) k/uL ABG pH 7.10 L* (7.35-7.45) ABG pCO2 106 H* (35-45) mmHg ABG pO2 139 H (83-108) mmHg ABG HCO3 33 H (21-25) mmol/L ABG Total CO2 36 H (19-24) mmol/L ABG O2 Saturation 98.4 H (94-97) % Sodium (137-145) mmol/L Chloride (98-107) mmol/L Carbon Dioxide (22-30) mmol/L BUN (7-17) mg/dL Creatinine (0.52-1.04) mg/dL Glucose (74-99) mg/dL POC Glucose (mg/dL) 157 H 182 H (70-110) mg/dL Urine Protein (Negative) Urine Mucus (None) /hpf 03/25/22 03/26/22 03/26/22 Range/Units 23:18 00:07 00:07 Lymphocytes # 0.7 L (1.0-4.8) k/uL ABG pH (7.35-7.45) ABG pCO2 (35-45) mmHg ABG pO2 (83-108) mmHg ABG HCO3 (21-25) mmol/L ABG Total CO2 (19-24) mmol/L ABG O2 Saturation (94-97) % Sodium 133 L (137-145) mmol/L Chloride 95 L (98-107) mmol/L Carbon Dioxide 32 H (22-30) mmol/L BUN 31 H (7-17) mg/dL Creatinine 1.41 H (0.52-1.04) mg/dL Glucose 176 H (74-99) mg/dL POC Glucose (mg/dL) 190 H (70-110) mg/dL Urine Protein (Negative) Urine Mucus (None) /hpf 03/26/22 03/26/22 Range/Units 07:00 07:06 Lymphocytes # (1.0-4.8) k/uL ABG pH (7.35-7.45) ABG pCO2 (35-45) mmHg ABG pO2 (83-108) mmHg ABG HCO3 (21-25) mmol/L ABG Total CO2 (19-24) mmol/L ABG O2 Saturation (94-97) % Sodium (137-145) mmol/L Chloride (98-107) mmol/L Carbon Dioxide 32 H (22-30) mmol/L BUN 32 H (7-17) mg/dL Creatinine 1.27 H (0.52-1.04) mg/dL Glucose 149 H (74-99) mg/dL POC Glucose (mg/dL) 152 H (70-110) mg/dL Urine Protein (Negative) Urine Mucus (None) /hpf Microbiology - Last 24 Hours (Table) 03/24/22 10:24 Blood Culture - Preliminary Blood No Growth after 24 hours 03/24/22 10:37 Blood Culture - Preliminary Blood No Growth after 24 hours Assessment and Plan Assessment: Acute hypercapnic respiratory failure secondary to an acute exacerbation of chronic obstructive pulmonary disease requiring BiPAP support, rapid response team required on 03/25/2022 and was transferred to the ICU Acute exacerbation of chronic obstructive pulmonary disease Acute on chronic hypoxemic respiratory failure secondary to above Chronic and ongoing tobacco dependence of 50 years History of hypertension History of depression Plan: The patient was seen and evaluated ABGs, labs and medications reviewed Required BiPAP currently 14/7 and 30% FiO2 Continue bronchodilators, IV solu Medrol Pending pro-calcitonin Continue Augmentin for now Again educated regarding the importance of complete smoking cessation NicoDerm patch applied Titrate the FiO2 as tolerated We will continue to follow I have personally seen and examined the patient, performed the documentation and the assessment and plan as written. Number of minutes spent on the visit: 10.
[2022-03-26 12:04] LABS: Glucose,Whole Blood 276 mg/dL (70-110)
[2022-03-26] MEDS: SODIUM CHLORIDE 0.9% 1,000 ML IV SCH ×2 (12:10→23:37)
--- NOTE | 2022-03-26 12:31 | P.PN ---
Subjective This is a pleasant 66 years old female with past medical history of hypertension, COPD, status post right kidney removal and depression. Presents because of dyspnea for 2 days duration Associated with coughing and yellow phlegm with no chest pain No diarrhea or vomiting. 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 She still smokes about 5 cigarettes specific today and she was counseled and she agrees and she wants nicotine patch. No alcohol or illicit drugs Vitals stable, blood pressure 140/100. She is afebrile. She is requiring 4 L of oxygen per minute to keep saturation mid 90s. CBC and BMP and liver enzymes are unremarkable. Troponin is negative. ProBNP is 181. anne and influenza virus is negative. CTA of the chest showing no pulmonary embolism but emphysematous changes. She is currently on Solu-Medrol and augmenting with pulmonary team consulted 03/25/2022 patient agrees little easier today but still has congestion and still has wheezing and still complaining of from exertional dyspnea with walking especially given her way back, she uses albuterol at home she is saturating well on her home dose of 4 L of oxygen. Labs reviewed. Creatinine went of 0.9-1.3. And tinea on Solu-Medrol 60 mg and augmenting. No other complaints or GI or urinary complaints. Report of urinalysis and bladder scan and was going to recheck her creatinine. 03/26/2022 Patient was moved to the ICU because of respiratory distress, currently she is o n BiPAP, she is fully awake and oriented. BiPAP setting is working 7 and 35% FiO2. She denies chest pain. She has minimal coughing. procalcitonin is elevated 0.50. Creatinine improved down to 1.2 today. Chest x-ray shows COPD changes and renal ultrasound showing no hydronephrosis She still remains on Solu-Medrol 60 mg and augmenting. Bladder scan less than 10. Urinalysis is negative Objective - Vital Signs Vital signs: Vital Signs Temp 98.5 F 03/26/22 12:00 Pulse 105 H 03/26/22 12:00 Resp 32 H 03/26/22 12:00 BP 156/117 03/26/22 12:00 Pulse Ox 91 L 03/26/22 12:00 FiO2 30 03/26/22 12:00 Intake & Output 03/25/22 03/26/22 03/26/22 18:59 06:59 18:59 Intake Total 525 450 Output Total 300 Balance 525 150 Intake: IV 525 450 Sodium Chloride 0.9% 1, 525 450 000 ml @ 75 mls/hr IV . [id number] [facility] Rx#:[id number] Output: Urine 300 Other: Voiding Method Bedside Commode Bedside Commode External Catheter Bedpan # Voids 3 1 - Exam GENERAL: The patient is alert and oriented x3, not in any acute distress. Well developed, well nourished. HEENT: Pupils are round and equally reacting to light. EOMI. No scleral icterus. No conjunctival pallor. Normocephalic, atraumatic. No pharyngeal erythema. No thyromegaly. CARDIOVASCULAR: S1 and S2 present. No murmurs, rubs, or gallops. -PULMONARY: Chest is clear to auscultation,. Bilateral scattered wheezing no rackles. ABDOMEN: Soft, nontender, nondistended, normoactive bowel sounds. No palpable organomegaly. MUSCULOSKELETAL: No joint swelling or deformity. EXTREMITIES: No cyanosis, clubbing, or pedal edema. NEUROLOGICAL: Gross neurological examination did not reveal any focal deficits. SKIN: No rashes. no petechiae. - Labs CBC & Chem 7: 03/26/22 07:00 03/26/22 07:00 Labs: Abnormal Lab Results - Last 24 Hours (Table) 03/25/22 03/25/22 03/25/22 Range/Units 12:09 16:27 19:58 Lymphocytes # (1.0-4.8) k/uL ABG pH (7.35-7.45) ABG pCO2 (35-45) mmHg ABG pO2 (83-108) mmHg ABG HCO3 (21-25) mmol/L ABG Total CO2 (19-24) mmol/L ABG O2 Saturation (94-97) % Sodium (137-145) mmol/L Chloride (98-107) mmol/L Carbon Dioxide (22-30) mmol/L BUN (7-17) mg/dL Creatinine (0.52-1.04) mg/dL Glucose (74-99) mg/dL POC Glucose (mg/dL) 163 H 157 H (70-110) mg/dL Procalcitonin (0.02-0.09) ng/mL Urine Protein 1+ H (Negative) Urine Mucus Rare H (None) /hpf 03/25/22 03/25/22 03/25/22 Range/Units 21:40 22:08 23:18 Lymphocytes # (1.0-4.8) k/uL ABG pH 7.10 L* (7.35-7.45) ABG pCO2 106 H* (35-45) mmHg ABG pO2 139 H (83-108) mmHg ABG HCO3 33 H (21-25) mmol/L ABG Total CO2 36 H (19-24) mmol/L ABG O2 Saturation 98.4 H (94-97) % Sodium (137-145) mmol/L Chloride (98-107) mmol/L Carbon Dioxide (22-30) mmol/L BUN (7-17) mg/dL Creatinine (0.52-1.04) mg/dL Glucose (74-99) mg/dL POC Glucose (mg/dL) 182 H 190 H (70-110) mg/dL Procalcitonin (0.02-0.09) ng/mL Urine Protein (Negative) Urine Mucus (None) /hpf 03/26/22 03/26/22 03/26/22 Range/Units 00:07 00:07 07:00 Lymphocytes # 0.7 L (1.0-4.8) k/uL ABG pH (7.35-7.45) ABG pCO2 (35-45) mmHg ABG pO2 (83-108) mmHg ABG HCO3 (21-25) mmol/L ABG Total CO2 (19-24) mmol/L ABG O2 Saturation (94-97) % Sodium 133 L (137-145) mmol/L Chloride 95 L (98-107) mmol/L Carbon Dioxide 32 H (22-30) mmol/L BUN 31 H (7-17) mg/dL Creatinine 1.41 H (0.52-1.04) mg/dL Glucose 176 H (74-99) mg/dL POC Glucose (mg/dL) (70-110) mg/dL Procalcitonin 0.50 H (0.02-0.09) ng/mL Urine Protein (Negative) Urine Mucus (None) /hpf 03/26/22 03/26/22 03/26/22 Range/Units 07:00 07:06 12:01 Lymphocytes # (1.0-4.8) k/uL ABG pH (7.35-7.45) ABG pCO2 (35-45) mmHg ABG pO2 (83-108) mmHg ABG HCO3 (21-25) mmol/L ABG Total CO2 (19-24) mmol/L ABG O2 Saturation (94-97) % Sodium (137-145) mmol/L Chloride (98-107) mmol/L Carbon Dioxide 32 H (22-30) mmol/L BUN 32 H (7-17) mg/dL Creatinine 1.27 H (0.52-1.04) mg/dL Glucose 149 H (74-99) mg/dL POC Glucose (mg/dL) 152 H 276 H (70-110) mg/dL Procalcitonin (0.02-0.09) ng/mL Urine Protein (Negative) Urine Mucus (None) /hpf Microbiology - Last 24 Hours (Table) 03/24/22 10:24 Blood Culture - Preliminary Blood No Growth after 24 hours 03/24/22 10:37 Blood Culture - Preliminary Blood No Growth after 24 hours Assessment and Plan Assessment: Acute COPD exacerbation Acute on chronic hypoxic respiratory failure Elevated creatinine, Hypertension nicotine dependence History of nephrectomy Plan: Continue with BiPAP and monitor the patient in the ICU Continue with Solu-Medrol Bronchodilator Monitored creatinine Continue with antibiotics currently on Augmentin Pulmonary consult Monitor creatinine. Check UA and bladder scan Labs and medication were reviewed.. Continue same treatment. Continue with s ymptomatic treatment. Resume home medication. Monitor lytes and vitals. DVT and GI prophylaxis. Further recommendations as per clinical course of the patient DVT prophylaxis: Subcutaneous heparin GI Prophylaxis: Pepcid Prognosis is guarded
--- NOTE | 2022-03-26 16:27 | P.PN ---
Subjective Patient is seen for follow-up for acute kidney injury. Mostly prerenal currently improving with IV hydration. Patient was transferred to ICU for worsening respiratory status. Currently maintained on BiPAP Patient has had good urine output and serum creatinine is down to 1.27 Objective - Vital Signs Vital signs: Vital Signs Temp 97.7 F 03/26/22 16:00 Pulse 80 03/26/22 16:00 Resp 27 H 03/26/22 16:00 BP 140/93 03/26/22 16:00 Pulse Ox 94 L 03/26/22 16:00 FiO2 30 03/26/22 16:00 Intake & Output 03/25/22 03/26/22 03/26/22 18:59 06:59 18:59 Intake Total 525 750 Output Total 550 Balance 525 200 Intake: IV 525 750 Sodium Chloride 0.9% 1, 525 750 000 ml @ 75 mls/hr IV . [id number] [facility] Rx#:[id number] Output: Urine 550 Other: Voiding Method Bedside Commode Bedside Commode External Catheter Bedpan # Voids 3 1 1 - Exam Awake, Comfortable, no acute distress On BiPAP Examination of the heart S1 and S2 Examination of the lungs bilateral breath sounds are heard Abdomen is soft nontender Examination of the lower extremities shows no evidence of edema ICU SPECIALIST exam grossly intact - Labs CBC & Chem 7: 03/26/22 07:00 03/26/22 07:00 Labs: Abnormal Lab Results - Last 24 Hours (Table) 03/25/22 03/25/22 03/25/22 Range/Units 16:27 19:58 21:40 Lymphocytes # (1.0-4.8) k/uL ABG pH (7.35-7.45) ABG pCO2 (35-45) mmHg ABG pO2 (83-108) mmHg ABG HCO3 (21-25) mmol/L ABG Total CO2 (19-24) mmol/L ABG O2 Saturation (94-97) % Sodium (137-145) mmol/L Chloride (98-107) mmol/L Carbon Dioxide (22-30) mmol/L BUN (7-17) mg/dL Creatinine (0.52-1.04) mg/dL Glucose (74-99) mg/dL POC Glucose (mg/dL) 163 H 157 H 182 H (70-110) mg/dL Procalcitonin (0.02-0.09) ng/mL 03/25/22 03/25/22 03/26/22 Range/Units 22:08 23:18 00:07 Lymphocytes # 0.7 L (1.0-4.8) k/uL ABG pH 7.10 L* (7.35-7.45) ABG pCO2 106 H* (35-45) mmHg ABG pO2 139 H (83-108) mmHg ABG HCO3 33 H (21-25) mmol/L ABG Total CO2 36 H (19-24) mmol/L ABG O2 Saturation 98.4 H (94-97) % Sodium (137-145) mmol/L Chloride (98-107) mmol/L Carbon Dioxide (22-30) mmol/L BUN (7-17) mg/dL Creatinine (0.52-1.04) mg/dL Glucose (74-99) mg/dL POC Glucose (mg/dL) 190 H (70-110) mg/dL Procalcitonin (0.02-0.09) ng/mL 03/26/22 03/26/22 03/26/22 Range/Units 00:07 07:00 07:00 Lymphocytes # (1.0-4.8) k/uL ABG pH (7.35-7.45) ABG pCO2 (35-45) mmHg ABG pO2 (83-108) mmHg ABG HCO3 (21-25) mmol/L ABG Total CO2 (19-24) mmol/L ABG O2 Saturation (94-97) % Sodium 133 L (137-145) mmol/L Chloride 95 L (98-107) mmol/L Carbon Dioxide 32 H 32 H (22-30) mmol/L BUN 31 H 32 H (7-17) mg/dL Creatinine 1.41 H 1.27 H (0.52-1.04) mg/dL Glucose 176 H 149 H (74-99) mg/dL POC Glucose (mg/dL) (70-110) mg/dL Procalcitonin 0.50 H (0.02-0.09) ng/mL 03/26/22 03/26/22 Range/Units 07:06 12:01 Lymphocytes # (1.0-4.8) k/uL ABG pH (7.35-7.45) ABG pCO2 (35-45) mmHg ABG pO2 (83-108) mmHg ABG HCO3 (21-25) mmol/L ABG Total CO2 (19-24) mmol/L ABG O2 Saturation (94-97) % Sodium (137-145) mmol/L Chloride (98-107) mmol/L Carbon Dioxide (22-30) mmol/L BUN (7-17) mg/dL Creatinine (0.52-1.04) mg/dL Glucose (74-99) mg/dL POC Glucose (mg/dL) 152 H 276 H (70-110) mg/dL Procalcitonin (0.02-0.09) ng/mL Microbiology - Last 24 Hours (Table) 03/24/22 10:37 Blood Culture - Preliminary Blood No Growth after 48 hours 03/24/22 10:24 Blood Culture - Preliminary Blood No Growth after 48 hours Assessment and Plan Assessment: 1. Acute kidney injury most likely prerenal. Agree with IV fluids. No evidence of obstruction on ultrasound. 2. Dyspnea with acute Hypoxic respiratory failure secondary to COPD exacerbation 3. History of right nephrectomy for enlarged kidney according to the patient in 2006. 4. Status post CTA on 03/24/2022 with no evidence of PE Plan: Continue with IV fluids Repeat labs in a.m.
[2022-03-26 16:38] LABS: Glucose,Whole Blood 126 mg/dL (70-110)
[2022-03-26 20:24] LABS: Glucose,Whole Blood 154 mg/dL (70-110)
[2022-03-27 06:06] LABS: Glucose,Whole Blood 161 mg/dL (70-110)
[2022-03-27] MEDS: methylPREDNISolone SOD SUCCI 125 MG/2 ML VIAL IV SCH ×3 (06:10→18:21)
[2022-03-27] MEDS: INSULIN ASPART (NovoLOG) 100 UNIT/ML VIAL SQ SCH ×4 (06:58→22:08)
--- NOTE | 2022-03-27 07:35 | XR ---
EXAMINATION TYPE: XR chest 1V DATE OF EXAM: 03/27/2022 COMPARISON: 03/26/2022 HISTORY: 66 year-old female shortness of breath TECHNIQUE: Single frontal view of the chest is obtained. FINDINGS: Heart is moderately enlarged. Atherosclerotic arch calcifications. Ectatic/tortuous thoracic aorta is similar. Hyperinflation. Possible 1.4 cm left upper lobe pulmonary nodule versus superimposition sha carine. Not clearly seen on the prior study. Attention on follow-up. No new consolidation or pleural eff usion. IMPRESSION: 1. Moderate cardiomegaly and COPD. Aneurysmal thoracic aorta. Similar findings from prior. 2. New 1.4 cm nodular density left upper lobe not present previously. Possible superimposition shadow /external artifact. Attention on follow-up. No acute process seen.
[2022-03-27] MEDS: BUDESONIDE 1 MG/2 ML NEBU INHALATION SCH ×2 (08:21→19:53)
[2022-03-27] MEDS: IPRATROPIUM-ALBUTEROL 3 ML NEB INHALATION SCH ×5 (08:21→19:53)
[2022-03-27] MEDS: FORMOTEROL FUMARATE 20 MCG/2 ML NEBU INHALATION SCH ×2 (08:21→19:53)
[2022-03-27 08:23] LABS: Calcium 8.9 mg/dL (8.4-10.2); Potassium 4.5 mmol/L (3.5-5.1)
[2022-03-27 08:28] LABS: Basophils % (A) 0 %; Eosinophils % (A) 0 %; HCT 39.3 % (34.0-46.0); Hypochromasia Slight; Lymphocytes # (A) 0.8 k/uL (1.0-4.8); Lymphocytes % (A) 18 %; MCH 29.9 pg (25.0-35.0); MCV 90.7 fL (80.0-100.0); Mean Platelet Volume 10.1; Monocytes # (A) 0.3 k/uL (0-1.0); Monocytes % (A) 7 %; Neutrophils # (A) 3.3 k/uL (1.3-7.7); Neutrophils % (A) 72 %; Platelet Count 197 k/uL (150-450); RBC 4.34 m/uL (3.80-5.40); RDW 13.7 % (11.5-15.5); WBC 4.6 k/uL (3.8-10.6)
[2022-03-27] MEDS: cloNIDine HCL 0.1 MG TAB PO SCH ×3 (08:50→21:34)
[2022-03-27] MEDS: FAMOTIDINE 20 MG TAB PO SCH (08:51)
[2022-03-27] MEDS: LORATADINE 10 MG TAB PO SCH (08:51)
[2022-03-27] MEDS: NIFEdipine XL 90 MG TAB.ER.24 PO SCH (08:51)
[2022-03-27] MEDS: NICOTINE 14MG/24HR PATCH TRANSDERM SCH (08:51)
[2022-03-27] MEDS: HEPARIN SODIUM,PORCINE/PF 5,000 UNIT/0.5 ML SYRINGE SQ SCH ×2 (08:51→21:35)
[2022-03-27] MEDS: METOPROLOL SUCCINATE (ER) 100 MG TAB.ER.24H PO SCH (08:51)
[2022-03-27] MEDS: AMOXIC-POT CLAV 875-125MG 1 EACH TAB PO SCH ×2 (08:52→21:37)
--- NOTE | 2022-03-27 09:54 | P.PN ---
Subjective Patient is seen for follow-up for acute kidney injury. Mostly prerenal currently improved with IV hydration. Patient was transferred to ICU for worsening respiratory status. Currently maintained on BiPAP Patient has had good urine output and serum creatinine is down to 1.1 Objective - Vital Signs Vital signs: Vital Signs Temp 97.8 F 03/27/22 08:00 Pulse 98 03/27/22 08:40 Resp 26 H 03/27/22 08:00 BP 170/107 03/27/22 08:00 Pulse Ox 95 03/27/22 08:00 FiO2 30 03/27/22 07:13 Intake & Output 03/26/22 03/27/22 03/27/22 18:59 06:59 18:59 Intake Total 900 900 75 Output Total 550 0 Balance 350 900 75 Weight 78.9 kg Intake: IV 900 900 75 Sodium Chloride 0.9% 1, 900 900 75 000 ml @ 75 mls/hr IV . [id number] [facility] Rx#:[id number] Output: Urine 550 0 Other: Voiding Method External Catheter External Catheter # Voids 1 - Exam Awake, Comfortable, no acute distress On BiPAP Examination of the heart S1 and S2 Examination of the lungs bilateral breath sounds are heard Abdomen is soft nontender Examination of the lower extremities shows no evidence of edema PRESSURIZATION MECHANIC exam grossly intact - Labs CBC & Chem 7: 03/27/22 07:04 03/27/22 07:04 Labs: Abnormal Lab Results - Last 24 Hours (Table) 03/26/22 03/26/22 03/26/22 Range/Units 07:00 12:01 16:36 Lymphocytes # (1.0-4.8) k/uL Carbon Dioxide (22-30) mmol/L BUN (7-17) mg/dL Creatinine (0.52-1.04) mg/dL Glucose (74-99) mg/dL POC Glucose (mg/dL) 276 H 126 H (70-110) mg/dL Procalcitonin 0.50 H (0.02-0.09) ng/mL 03/26/22 03/27/22 03/27/22 Range/Units 20:21 06:03 07:04 Lymphocytes # 0.8 L (1.0-4.8) k/uL Carbon Dioxide (22-30) mmol/L BUN (7-17) mg/dL Creatinine (0.52-1.04) mg/dL Glucose (74-99) mg/dL POC Glucose (mg/dL) 154 H 161 H (70-110) mg/dL Procalcitonin (0.02-0.09) ng/mL 03/27/22 Range/Units 07:04 Lymphocytes # (1.0-4.8) k/uL Carbon Dioxide 33 H (22-30) mmol/L BUN 27 H (7-17) mg/dL Creatinine 1.12 H (0.52-1.04) mg/dL Glucose 140 H (74-99) mg/dL POC Glucose (mg/dL) (70-110) mg/dL Procalcitonin (0.02-0.09) ng/mL Microbiology - Last 24 Hours (Table) 03/24/22 10:37 Blood Culture - Preliminary Blood No Growth after 48 hours 03/24/22 10:24 Blood Culture - Preliminary Blood No Growth after 48 hours Assessment and Plan Assessment: 1. Acute kidney injury most likely prerenal. Agree with IV fluids. No evidence of obstruction on ultrasound. 2. Dyspnea with acute Hypoxic respiratory failure secondary to COPD exacerbation 3. History of right nephrectomy for enlarged kidney according to the patient in 2006. 4. Status post CTA on 03/24/2022 with no evidence of PE Plan: Can't DC IV fluids Repeat labs in a.m. Avoid nephrotoxic agents
--- NOTE | 2022-03-27 10:57 | P.PN ---
Subjective Progress Note Date: 03/27/22 This is a pleasant 66-year-old female patient who resides in the [place] area. She's been here visiting her son. She does have a 50 year smoking history. She does have COPD. She does have Trelegy, albuterol HFA and nebulized treatments in the outpatient setting. She also has a history of hypertension, right nephrectomy, depression. Over the past 1 week she's had worsening shortness of breath, cough and congestion. She presented here to the emergency room yesterday for the same. Chest x-ray reveals chronic emphysematous changes and cardiomegaly without acute pulmonary process. CT angiogram ruled out pulmonary embolism. There is evidence of old granulomatous disease. Moderate emphysematous changes and cardiomegaly without acute pulmonary process. Possible mild congestive heart failure. EKG reveals sinus tachycardia without acute ST or T wave abnormalities. Blood cultures reveal no growth to date. White count 3.2. Hemoglobin 12.5. INR 1.1. D-dimer 2.24. Sodium 136. Potassium 4.1. BUN 20. Creatinine 1.3. Glucose 171. Influenza screen negative. RSV screen negative. Coronavirus negative. Urinalysis negative. She is seen today in consultation on the regular medical floor. She currently sitting up in bed. Awake and alert in no acute distress. She is maintaining O2 saturations in the upper 90s on 4 L/m per nasal cannula. She is dyspneic with conversation. Dyspneic with minimal exertion. She's been initiated on DuoNeb inhalations, Solu-Medrol, antibiotics in the form of Augmentin. NicoDerm patch in place. Heparin for DVT prophylaxis. The patient is seen today 03/26/2022 and follow-up in the intensive care unit. Last night approximately 9:30 PM the patient was found unresponsive and with agonal breathing. She did have a pulse at that time. This is about 5 minutes after she had been seen and had received a breathing treatment. She did require respiratory assistance with Ambu bag and subsequent BiPAP support. When LEAD ELECTRICIAN and hospitalist arrived the patient was alert and responsive. Blood gases revealed a pO2 of 139, pCO2 of 106 and a pH of 7.10 on 50% FiO2. He was transferred to the intensive care unit for closer observation. She is seen today currently on the BiPAP at 14/7 and 30% FiO2. She is awake and alert. Normal saline at 75 mL per hour. She is continued on DuoNeb inhalations, Pulmicort and Perforomist inhalations, IV Solu-Medrol. Empiric antibiotics in the form of Augmentin. NicoDerm patch in place. The patient is seen today 03/27/2022 in follow-up in the intensive care unit. She remains awake and alert. She is still quite BiPAP dependent. Currently 14/7 and 30% FiO2. She only tolerates about 10-20 minutes off the BiPAP on nasal cannula. Chest x-ray reveals moderate cardiomegaly and COPD. Similar findings. A new 1.4 cm nodular density in left upper lobe not previously present. Possible superimposition of shadows/external artifact. No acute pulmonary process. She remains on DuoNeb inhalations, Pulmicort and Perforomist inhalations, IV Solu-Medrol. NicoDerm patches in place. Empiric antibiotics in the form of Augmentin. She still having some hypertension. She is due for clonidine a presently in [place]. May require clevidipine drip if no improvement. Objective - Vital Signs Vital signs: Vital Signs Temp 97.8 F 03/27/22 08:00 Pulse 90 03/27/22 10:00 Resp 25 H 03/27/22 10:00 BP 228/136 03/27/22 10:00 Pulse Ox 94 L 03/27/22 10:00 FiO2 30 03/27/22 10:46 Intake & Output 03/26/22 03/27/22 03/27/22 18:59 06:59 18:59 Intake Total 900 900 300 Output Total 550 0 750 Balance 350 900 -450 Weight 78.9 kg Intake: IV 900 900 300 Sodium Chloride 0.9% 1, 900 900 300 000 ml @ 75 mls/hr IV . [id number] [facility] Rx#:[id number] Output: Urine 550 0 750 Other: Voiding Method External Catheter External Catheter Bedpan # Voids 1 - Exam GENERAL EXAM: Alert, very pleasant 66-year-old female, on BiPAP 14/7 and 30% FiO2, fairly comfortable in no apparent distress. HEAD: Normocephalic. EYES: Normal reaction of pupils, equal size. NOSE: Clear with pink turbinates. THROAT: No erythema or exudates. NECK: No masses, no JVD. CHEST: No chest wall deformity. LUNGS: Equal air entry with bilateral end expiratory wheeze, diminished. CVS: S1 and S2 normal with no audible murmur, regular rhythm. ABDOMEN: No hepatosplenomegaly, normal bowel sounds, no guarding or rigidity. SPINE: No scoliosis or deformity SKIN: No rashes CENTRAL NERVOUS SYSTEM: No focal deficits, tone is normal in all 4 extremities. EXTREMITIES: There is no peripheral edema. No clubbing, no cyanosis. Peripheral pulses are intact. - Labs CBC & Chem 7: 03/27/22 07:04 03/27/22 07:04 Labs: Abnormal Lab Results - Last 24 Hours (Table) 03/26/22 03/26/22 03/26/22 Range/Units 07:00 12:01 16:36 Lymphocytes # (1.0-4.8) k/uL Carbon Dioxide (22-30) mmol/L BUN (7-17) mg/dL Creatinine (0.52-1.04) mg/dL Glucose (74-99) mg/dL POC Glucose (mg/dL) 276 H 126 H (70-110) mg/dL Procalcitonin 0.50 H (0.02-0.09) ng/mL 03/26/22 03/27/22 03/27/22 Range/Units 20:21 06:03 07:04 Lymphocytes # 0.8 L (1.0-4.8) k/uL Carbon Dioxide (22-30) mmol/L BUN (7-17) mg/dL Creatinine (0.52-1.04) mg/dL Glucose (74-99) mg/dL POC Glucose (mg/dL) 154 H 161 H (70-110) mg/dL Procalcitonin (0.02-0.09) ng/mL 03/27/22 Range/Units 07:04 Lymphocytes # (1.0-4.8) k/uL Carbon Dioxide 33 H (22-30) mmol/L BUN 27 H (7-17) mg/dL Creatinine 1.12 H (0.52-1.04) mg/dL Glucose 140 H (74-99) mg/dL POC Glucose (mg/dL) (70-110) mg/dL Procalcitonin (0.02-0.09) ng/mL Microbiology - Last 24 Hours (Table) 03/24/22 10:37 Blood Culture - Preliminary Blood No Growth after 48 hours 03/24/22 10:24 Blood Culture - Preliminary Blood No Growth after 48 hours Assessment and Plan Assessment: Acute hypercapnic respiratory failure secondary to an acute exacerbation of chronic obstructive pulmonary disease requiring BiPAP support, rapid response team required on 03/25/2022 and was transferred to the ICU Acute exacerbation of chronic obstructive pulmonary disease Acute on chronic hypoxemic respiratory failure secondary to above Chronic and ongoing tobacco dependence of 50 years History of hypertension History of depression Plan: The patient was seen and evaluated Chest x-ray, labs and medications reviewed Continued on BiPAP currently 21/11 and 30% FiO2 Continue bronchodilators, IV solu Medrol Pro-calcitonin, continue Augmentin Again educated regarding the importance of complete smoking cessation NicoDerm patch applied Titrate the FiO2 as tolerated Prognosis is guarded, may require intubation and mechanical ventilatory support This was discussed in detail with the patient We will continue to follow I have personally seen and examined the patient, performed the documentation and the assessment and plan as written. Number of minutes spent on the visit: 10.
--- NOTE | 2022-03-27 11:19 | P.PN ---
Subjective This is a pleasant 66 years old female with past medical history of hypertension, COPD, status post right kidney removal and depression. Presents because of dyspnea for 2 days duration Associated with coughing and yellow phlegm with no chest pain No diarrhea or vomiting. Patient has light cleaner on [place]. She still smokes about 5 cigarettes specific today and she was counseled and she agrees and she wants nicotine patch. No alcohol or illicit drugs Vitals stable, blood pressure 140/100. She is afebrile. She is requiring 4 L of oxygen per minute to keep saturation mid 90s. CBC and BMP and liver enzymes are unremarkable. Troponin is negative. ProBNP is 181. anne and influenza virus is negative. CTA of the chest showing no pulmonary embolism but emphysematous changes. She is currently on Solu-Medrol and augmenting with pulmonary team consulted 03/25/2022 patient agrees little easier today but still has congestion and still has wheezing and still complaining of from exertional dyspnea with walking especially given her way back, she uses albuterol at home she is saturating well on her home dose of 4 L of oxygen. Labs reviewed. Creatinine went of 0.9-1.3. And tinea on Solu-Medrol 60 mg and augmenting. No other complaints or GI or urinary complaints. Report of urinalysis and bladder scan and was going to recheck her creatinine. 03/26/2022 Patient was moved to the ICU because of respiratory distress, currently she is o n BiPAP, she is fully awake and oriented. BiPAP setting is working 7 and 35% FiO2. She denies chest pain. She has minimal coughing. procalcitonin is elevated 0.50. Creatinine improved down to 1.2 today. Chest x-ray shows COPD changes and renal ultrasound showing no hydronephrosis She still remains on Solu-Medrol 60 mg and augmenting. Bladder scan less than 10. Urinalysis is negative 03/27/2022 Patient is very awake and oriented, she remains on respiratory distress requiring BiPAP on the same setting 714/7 with FiO2 of 30%. Patient kept on IV steroids of Solu-Medrol and Augmentin for moderately elevated pro-calcitonin 0.5 and suspicion of infection. Her creatinine back close to normal at 1.12, patient is off IV fluid Blood pressure is elevated and received 1 dose of hydralazine 25 mg when necessary, most likely secondary to steroid effect. We will put her on hydralazine 25 twice a day on the top of hydralazine when necessary. We'll keep monitor blood pressure closely Objective - Vital Signs Vital signs: Vital Signs Temp 97.8 F 03/27/22 08:00 Pulse 80 03/27/22 11:00 Resp 28 H 03/27/22 11:00 BP 165/114 03/27/22 11:00 Pulse Ox 96 03/27/22 11:00 FiO2 30 03/27/22 11:00 Intake & Output 03/26/22 03/27/22 03/27/22 18:59 06:59 18:59 Intake Total 900 900 375 Output Total 550 0 750 Balance 350 900 -375 Weight 78.9 kg Intake: IV 900 900 375 Sodium Chloride 0.9% 1, 900 900 375 000 ml @ 75 mls/hr IV . [id number] [facility] Rx#:[id number] Output: Urine 550 0 750 Other: Voiding Method External Catheter External Catheter Bedpan # Voids 1 # Bowel Movements 1 - Exam GENERAL: The patient is alert and oriented x3, not in any acute distress. Well developed, well nourished. HEENT: Pupils are round and equally reacting to light. EOMI. No scleral icterus. No conjunctival pallor. Normocephalic, atraumatic. No pharyngeal erythema. No thyromegaly. CARDIOVASCULAR: S1 and S2 present. No murmurs, rubs, or gallops. -PULMONARY: Chest is clear to auscultation,. Bilateral scattered wheezing no rackles. ABDOMEN: Soft, nontender, nondistended, normoactive bowel sounds. No palpable organomegaly. MUSCULOSKELETAL: No joint swelling or deformity. EXTREMITIES: No cyanosis, clubbing, or pedal edema. NEUROLOGICAL: Gross neurological examination did not reveal any focal deficits. SKIN: No rashes. no petechiae. - Labs CBC & Chem 7: 03/27/22 07:04 03/27/22 07:04 Labs: Abnormal Lab Results - Last 24 Hours (Table) 03/26/22 03/26/22 03/26/22 Range/Units 07:00 12:01 16:36 Lymphocytes # (1.0-4.8) k/uL Carbon Dioxide (22-30) mmol/L BUN (7-17) mg/dL Creatinine (0.52-1.04) mg/dL Glucose (74-99) mg/dL POC Glucose (mg/dL) 276 H 126 H (70-110) mg/dL Procalcitonin 0.50 H (0.02-0.09) ng/mL 03/26/22 03/27/22 03/27/22 Range/Units 20:21 06:03 07:04 Lymphocytes # 0.8 L (1.0-4.8) k/uL Carbon Dioxide (22-30) mmol/L BUN (7-17) mg/dL Creatinine (0.52-1.04) mg/dL Glucose (74-99) mg/dL POC Glucose (mg/dL) 154 H 161 H (70-110) mg/dL Procalcitonin (0.02-0.09) ng/mL 03/27/22 Range/Units 07:04 Lymphocytes # (1.0-4.8) k/uL Carbon Dioxide 33 H (22-30) mmol/L BUN 27 H (7-17) mg/dL Creatinine 1.12 H (0.52-1.04) mg/dL Glucose 140 H (74-99) mg/dL POC Glucose (mg/dL) (70-110) mg/dL Procalcitonin (0.02-0.09) ng/mL Microbiology - Last 24 Hours (Table) 03/24/22 10:37 Blood Culture - Preliminary Blood No Growth after 48 hours 03/24/22 10:24 Blood Culture - Preliminary Blood No Growth after 48 hours Assessment and Plan Assessment: Acute COPD exacerbation Acute on chronic hypoxic respiratory failure Elevated creatinine, Hypertension nicotine dependence History of nephrectomy Plan: Continue with BiPAP and monitor the patient in the ICU Continue with Solu-Medrol Bronchodilator Monitored creatinine Continue with antibiotics currently on Augmentin Pulmonary consult Monitor creatinine. Check UA and bladder scan Labs and medication were reviewed.. Continue same treatment. Continue with symptomatic treatment. Resume home medication. Monitor lytes and vitals. DVT and GI prophylaxis. Further recommendations as per clinical course of the patient DVT prophylaxis: Subcutaneous heparin GI Prophylaxis: Pepcid Prognosis is guarded
[2022-03-27 11:32] LABS: Glucose,Whole Blood 138 mg/dL (70-110)
[2022-03-27 17:22] LABS: Glucose,Whole Blood 157 mg/dL (70-110)
[2022-03-27 20:45] LABS: ABG Base Excess 6.7 mmol/L; ABG HCO3 32 mmol/L (21-25); ABG Oxygen Saturation 87.7 % (94-97); ABG PCO2 57 mmHg (35-45); ABG PH 7.36 (7.35-7.45); ABG TCO2 34 mmol/L (19-24); Allen Test Performed? Yes
[2022-03-27 20:47] LABS: ABG PO2 55 mmHg (83-108)
[2022-03-27] MEDS: hydrALAZINE HCL 25 MG TAB PO SCH (21:34)
[2022-03-27] MEDS: ALPRAZolam 0.5 MG TAB PO PRN (21:35)
[2022-03-27 22:08] LABS: Glucose,Whole Blood 152 mg/dL (70-110)
[2022-03-28] MEDS: methylPREDNISolone SOD SUCCI 125 MG/2 ML VIAL IV SCH ×4 (00:47→16:51)
[2022-03-28 04:20] LABS: HCT 37.4 % (34.0-46.0); HGB 12.3 gm/dL (11.4-16.0); Hypochromasia Slight; MCH 29.5 pg (25.0-35.0); MCHC 32.9 g/dL (31.0-37.0); MCV 89.6 fL (80.0-100.0); Platelet Count 208 k/uL (150-450); RBC 4.17 m/uL (3.80-5.40); RDW 13.7 % (11.5-15.5)
[2022-03-28 04:30] LABS: Calcium 8.9 mg/dL (8.4-10.2); Potassium 4.2 mmol/L (3.5-5.1)
[2022-03-28 06:37] LABS: HCT 36.9 % (34.0-46.0); HGB 12.4 gm/dL (11.4-16.0); MCH 29.8 pg (25.0-35.0); MCHC 33.5 g/dL (31.0-37.0); Mean Platelet Volume 10.2; Platelet Count 197 k/uL (150-450); RBC 4.15 m/uL (3.80-5.40); RDW 13.8 % (11.5-15.5); WBC 5.1 k/uL (3.8-10.6)
[2022-03-28 06:40] LABS: Glucose,Whole Blood 143 mg/dL (70-110)
[2022-03-28] MEDS: INSULIN ASPART (NovoLOG) 100 UNIT/ML VIAL SQ SCH ×4 (06:41→20:31)
[2022-03-28 06:52] LABS: Calcium 8.8 mg/dL (8.4-10.2); Potassium 4.2 mmol/L (3.5-5.1)
--- NOTE | 2022-03-28 07:17 | XR ---
EXAMINATION TYPE: XR chest 1V DATE OF EXAM: 03/28/2022 5:58 AM COMPARISON: Chest radiograph from one day prior. TECHNIQUE: XR chest 1V Frontal view of the chest. CLINICAL INDICATION:Female, 66 years old with history of SOB; FINDINGS: Lungs/Pleura: There is flattening of the diaphragm with increased lucency of the lungs. No evidence o f pneumothorax, pleural effusion or focal consolidation. Pulmonary vascularity: Unremarkable. Heart/mediastinum: Cardiomediastinal silhouette is enlarged and stable. Musculoskeletal: No acute osseous pathology. IMPRESSION: 1. Moderate cardiomegaly and COPD. Aneurysmal thoracic aorta. Similar findings from prior. 2. Previous nodular density left upper lobe not present on today's exam likely representing superimpo sition shadow/external artifact on prior.
[2022-03-28] MEDS: FORMOTEROL FUMARATE 20 MCG/2 ML NEBU INHALATION SCH (08:12)
[2022-03-28] MEDS: ALBUTEROL NEBULIZED 2.5 MG/3 ML INHALATION SCH ×4 (08:12→21:23)
[2022-03-28] MEDS: BUDESONIDE 1 MG/2 ML NEBU INHALATION SCH ×2 (08:12→21:23)
[2022-03-28] MEDS: NICOTINE 14MG/24HR PATCH TRANSDERM SCH (10:17)
[2022-03-28] MEDS: hydrALAZINE HCL 25 MG TAB PO SCH ×2 (10:17→20:38)
[2022-03-28] MEDS: HEPARIN SODIUM,PORCINE/PF 5,000 UNIT/0.5 ML SYRINGE SQ SCH ×2 (10:18→20:38)
[2022-03-28] MEDS: NIFEdipine XL 90 MG TAB.ER.24 PO SCH (10:18)
[2022-03-28] MEDS: LORATADINE 10 MG TAB PO SCH (10:18)
[2022-03-28] MEDS: FAMOTIDINE 20 MG TAB PO SCH (10:18)
[2022-03-28] MEDS: cloNIDine HCL 0.1 MG TAB PO SCH ×3 (10:18→21:43)
[2022-03-28] MEDS: AMOXIC-POT CLAV 875-125MG 1 EACH TAB PO SCH ×2 (10:19→20:38)
[2022-03-28] MEDS: METOPROLOL SUCCINATE (ER) 100 MG TAB.ER.24H PO SCH (10:19)
--- NOTE | 2022-03-28 10:44 | P.PN ---
Subjective Progress Note Date: 03/28/22 This is a pleasant 66-year-old female patient who resides in the [place] area. She's been here visiting her son. She does have a 50 year smoking history. She does have COPD. She does have Trelegy, albuterol HFA and nebulized treatments in the outpatient setting. She also has a history of hypertension, right nephrectomy, depression. Over the past 1 week she's had worsening shortness of breath, cough and congestion. She presented here to the emergency room yesterday for the same. Chest x-ray reveals chronic emphysematous changes and cardiomegaly without acute pulmonary process. CT angiogram ruled out pulmonary embolism. There is evidence of old granulomatous disease. Moderate emphysematous changes and cardiomegaly without acute pulmonary process. Possible mild congestive heart failure. EKG reveals sinus tachycardia without acute ST or T wave abnormalities. Blood cultures reveal no growth to date. White count 3.2. Hemoglobin 12.5. INR 1.1. D-dimer 2.24. Sodium 136. Potassium 4.1. BUN 20. Creatinine 1.3. Glucose 171. Influenza screen negative. RSV screen negative. Coronavirus negative. Urinalysis negative. She is seen today in consultation on the regular medical floor. She currently sitting up in bed. Awake and alert in no acute distress. She is maintaining O2 saturations in the upper 90s on 4 L/m per nasal cannula. She is dyspneic with conversation. Dyspneic with minimal exertion. She's been initiated on DuoNeb inhalations, Solu-Medrol, antibiotics in the form of Augmentin. NicoDerm patch in place. Heparin for DVT prophylaxis. The patient is seen today 03/26/2022 and follow-up in the intensive care unit. Last night approximately 9:30 PM the patient was found unresponsive and with agonal breathing. She did have a pulse at that time. This is about 5 minutes after she had been seen and had received a breathing treatment. She did require respiratory assistance with Ambu bag and subsequent BiPAP support. When LEAD JAVA PROGRAMMER and hospitalist arrived the patient was alert and responsive. Blood gases revealed a pO2 of 139, pCO2 of 106 and a pH of 7.10 on 50% FiO2. He was transferred to the intensive care unit for closer observation. She is seen today currently on the BiPAP at 14/7 and 30% FiO2. She is awake and alert. Normal saline at 75 mL per hour. She is continued on DuoNeb inhalations, Pulmicort and Perforomist inhalations, IV Solu-Medrol. Empiric antibiotics in the form of Augmentin. NicoDerm patch in place. The patient is seen today 03/27/2022 in follow-up in the intensive care unit. She remains awake and alert. She is still quite BiPAP dependent. Currently 14/7 and 30% FiO2. She only tolerates about 10-20 minutes off the BiPAP on nasal cannula. Chest x-ray reveals moderate cardiomegaly and COPD. Similar findings. A new 1.4 cm nodular density in left upper lobe not previously present. Possible superimposition of shadows/external artifact. No acute pulmonary process. She remains on DuoNeb inhalations, Pulmicort and Perforomist inhalations, IV Solu-Medrol. NicoDerm patches in place. Empiric antibiotics in the form of Augmentin. She still having some hypertension. She is due for clonidine a presently in [facility]. May require clevidipine drip if no improvement. The patient is seen today 03/28/2022 in follow-up in the intensive care unit. She is currently on BiPAP 14/7 and 30% FiO2. She seems to have more trouble with the DuoNeb breathing treatments and Perforomist. She does better on albuterol. Currently resting fairly comfortably in bed. Shee admits to feeling a bit better today compared to yesterday. Chest x-ray shows moderate cardiomegaly and COPD. No nodular density in the left upper lobe today. Blood cultures reveal no growth to date. White count 5.1. Hemoglobin 12.4. Sodium 139. Potassium 4.2. Bicarb 33. BUN 28. Creatinine 0.99. Glucose 138. She is continued on albuterol nebulized treatments, Pulmicort inhalations twice a day. Empiric antibiotics in the form of Augmentin. She remains on IV Solu- Medrol. Heparin for DVT prophylaxis. NicoDerm patch in place. Objective - Vital Signs Vital signs: Vital Signs Temp 98.0 F 03/28/22 08:00 Pulse 85 03/28/22 08:24 Resp 45 H 03/28/22 08:00 BP 164/98 03/28/22 08:00 Pulse Ox 95 03/28/22 08:00 FiO2 30 03/28/22 08:00 Intake & Output 03/27/22 03/28/22 03/28/22 18:59 06:59 18:59 Intake Total 875 Output Total 1160 800 0 Balance -285 -800 0 Intake: IV 675 Sodium Chloride 0.9% 1, 675 000 ml @ 75 mls/hr IV . [id number] [facility] Rx#:[id number] Oral 200 Output: Urine 1160 800 0 Other: Voiding Method Bedpan Bedpan # Voids 0 0 # Bowel Movements 1 - Exam GENERAL EXAM: Alert, pleasant 66-year-old female, on BiPAP 14/7 and 30% FiO2, comfortable in no apparent distress. HEAD: Normocephalic. EYES: Normal reaction of pupils, equal size. NOSE: Clear with pink turbinates. THROAT: No erythema or exudates. NECK: No masses, no JVD. CHEST: No chest wall deformity. LUNGS: Equal air entry with bilateral end expiratory wheeze, diminished. CVS: S1 and S2 normal with no audible murmur, regular rhythm. ABDOMEN: No hepatosplenomegaly, normal bowel sounds, no guarding or rigidity. SPINE: No scoliosis or deformity SKIN: No rashes CENTRAL NERVOUS SYSTEM: No focal deficits, tone is normal in all 4 extremities. EXTREMITIES: There is no peripheral edema. No clubbing, no cyanosis. Peripheral pulses are intact. - Labs CBC & Chem 7: 03/28/22 06:13 03/28/22 06:13 Labs: Abnormal Lab Results - Last 24 Hours (Table) 03/27/22 03/27/22 03/27/22 Range/Units 11:31 17:20 20:43 ABG pCO2 57 H (35-45) mmHg ABG pO2 55 L* (83-108) mmHg ABG HCO3 32 H (21-25) mmol/L ABG Total CO2 34 H (19-24) mmol/L ABG O2 Saturation 87.7 L (94-97) % Carbon Dioxide (22-30) mmol/L BUN (7-17) mg/dL Glucose (74-99) mg/dL POC Glucose (mg/dL) 138 H 157 H (70-110) mg/dL 03/27/22 03/28/22 03/28/22 Range/Units 22:07 03:50 06:13 ABG pCO2 (35-45) mmHg ABG pO2 (83-108) mmHg ABG HCO3 (21-25) mmol/L ABG Total CO2 (19-24) mmol/L ABG O2 Saturation (94-97) % Carbon Dioxide 32 H 33 H (22-30) mmol/L BUN 30 H 28 H (7-17) mg/dL Glucose 141 H 138 H (74-99) mg/dL POC Glucose (mg/dL) 152 H (70-110) mg/dL 03/28/22 Range/Units 06:38 ABG pCO2 (35-45) mmHg ABG pO2 (83-108) mmHg ABG HCO3 (21-25) mmol/L ABG Total CO2 (19-24) mmol/L ABG O2 Saturation (94-97) % Carbon Dioxide (22-30) mmol/L BUN (7-17) mg/dL Glucose (74-99) mg/dL POC Glucose (mg/dL) 143 H (70-110) mg/dL Microbiology - Last 24 Hours (Table) 03/24/22 10:37 Blood Culture - Preliminary Blood No Growth after 72 hours 03/24/22 10:24 Blood Culture - Preliminary Blood No Growth after 72 hours Assessment and Plan Assessment: Acute hypercapnic respiratory failure secondary to an acute exacerbation of chronic obstructive pulmonary disease requiring BiPAP support, rapid response team required on 03/25/2022 and was transferred to the ICU Acute exacerbation of chronic obstructive pulmonary disease Acute on chronic hypoxemic respiratory failure secondary to above Chronic and ongoing tobacco dependence of 50 years History of hypertension History of depression Plan: The patient was seen and evaluated Chest x-ray, labs and medications reviewed Continued on BiPAP currently 21/11 and 30% FiO2 Discontinue DuoNeb inhalations, Perforomist Continue albuterol, Pulmicort, IV solu Medrol Titrate the FiO2 as tolerated Prognosis is guarded We will continue to follow I have personally seen and examined the patient, performed the documentation and the assessment and plan as written. Number of minutes spent on the visit: 10.
--- NOTE | 2022-03-28 10:57 | P.PN ---
Subjective Patient is seen for follow-up for acute kidney injury. Mostly prerenal currently improved with IV hydration. Patient was transferred to ICU for worsening respiratory status. Currently maintained on BiPAP Patient has had good urine output and serum creatinine is down to 0.9 Objective - Vital Signs Vital signs: Vital Signs Temp 98.0 F 03/28/22 08:00 Pulse 85 03/28/22 08:24 Resp 45 H 03/28/22 08:00 BP 164/98 03/28/22 08:00 Pulse Ox 95 03/28/22 08:00 FiO2 30 03/28/22 08:00 Intake & Output 03/27/22 03/28/22 03/28/22 18:59 06:59 18:59 Intake Total 875 Output Total 1160 800 0 Balance -285 -800 0 Intake: IV 675 Sodium Chloride 0.9% 1, 675 000 ml @ 75 mls/hr IV . [id number] [facility] Rx#:[id number] Oral 200 Output: Urine 1160 800 0 Other: Voiding Method Bedpan Bedpan # Voids 0 0 # Bowel Movements 1 - Exam Awake, Comfortable, no acute distress On BiPAP Examination of the heart S1 and S2 Examination of the lungs bilateral breath sounds are heard Abdomen is soft nontender Examination of the lower extremities shows no evidence of edema ANDROID SOFTWARE ENGINEER exam grossly intact - Labs CBC & Chem 7: 03/28/22 06:13 03/28/22 06:13 Labs: Abnormal Lab Results - Last 24 Hours (Table) 03/27/22 03/27/22 03/27/22 Range/Units 11:31 17:20 20:43 ABG pCO2 57 H (35-45) mmHg ABG pO2 55 L* (83-108) mmHg ABG HCO3 32 H (21-25) mmol/L ABG Total CO2 34 H (19-24) mmol/L ABG O2 Saturation 87.7 L (94-97) % Carbon Dioxide (22-30) mmol/L BUN (7-17) mg/dL Glucose (74-99) mg/dL POC Glucose (mg/dL) 138 H 157 H (70-110) mg/dL 03/27/22 03/28/22 03/28/22 Range/Units 22:07 03:50 06:13 ABG pCO2 (35-45) mmHg ABG pO2 (83-108) mmHg ABG HCO3 (21-25) mmol/L ABG Total CO2 (19-24) mmol/L ABG O2 Saturation (94-97) % Carbon Dioxide 32 H 33 H (22-30) mmol/L BUN 30 H 28 H (7-17) mg/dL Glucose 141 H 138 H (74-99) mg/dL POC Glucose (mg/dL) 152 H (70-110) mg/dL 03/28/22 Range/Units 06:38 ABG pCO2 (35-45) mmHg ABG pO2 (83-108) mmHg ABG HCO3 (21-25) mmol/L ABG Total CO2 (19-24) mmol/L ABG O2 Saturation (94-97) % Carbon Dioxide (22-30) mmol/L BUN (7-17) mg/dL Glucose (74-99) mg/dL POC Glucose (mg/dL) 143 H (70-110) mg/dL Microbiology - Last 24 Hours (Table) 03/24/22 10:37 Blood Culture - Preliminary Blood No Growth after 72 hours 03/24/22 10:24 Blood Culture - Preliminary Blood No Growth after 72 hours Assessment and Plan Assessment: 1. Acute kidney injury most likely prerenal. . No evidence of obstruction on ultrasound. Currently off of IVF. 2. Dyspnea with acute Hypoxic respiratory failure secondary to COPD ex acerbation 3. History of right nephrectomy for enlarged kidney according to the patient in 2006. 4. Status post CTA on 03/24/2022 with no evidence of PE Plan: Continue off of IVF Avoid nephrotoxic agents
[2022-03-28 12:00] LABS: Glucose,Whole Blood 159 mg/dL (70-110)
[2022-03-28 16:31] LABS: Glucose,Whole Blood 153 mg/dL (70-110)
[2022-03-28 20:03] LABS: Glucose,Whole Blood 144 mg/dL (70-110)
--- NOTE | 2022-03-28 21:01 | P.PN ---
Subjective This is a pleasant 66 years old female with past medical history of hypertension, COPD, status post right kidney removal and depression. Presents because of dyspnea for 2 days duration Associated with coughing and yellow phlegm with no chest pain No diarrhea or vomiting. Patient has level vial marker on [place]. She still smokes about 5 cigarettes specific today and she was counseled and she agrees and she wants nicotine patch. No alcohol or illicit drugs Vitals stable, blood pressure 140/100. She is afebrile. She is requiring 4 L of oxygen per minute to keep saturation mid 90s. CBC and BMP and liver enzymes are unremarkable. Troponin is negative. ProBNP is 181. anne and influenza virus is negative. CTA of the chest showing no pulmonary embolism but emphysematous changes. She is currently on Solu-Medrol and augmenting with pulmonary team consulted 03/25/2022 patient agrees little easier today but still has congestion and still has wheezing and still complaining of from exertional dyspnea with walking especially given her way back, she uses albuterol at home she is saturating well on her home dose of 4 L of oxygen. Labs reviewed. Creatinine went of 0.9-1.3. And tinea on Solu-Medrol 60 mg and augmenting. No other complaints or GI or urinary complaints. Report of urinalysis and bladder scan and was going to recheck her creatinine. 03/26/2022 Patient was moved to the ICU because of respiratory distress, currently she is o n BiPAP, she is fully awake and oriented. BiPAP setting is working 7 and 35% FiO2. She denies chest pain. She has minimal coughing. procalcitonin is elevated 0.50. Creatinine improved down to 1.2 today. Chest x-ray shows COPD changes and renal ultrasound showing no hydronephrosis She still remains on Solu-Medrol 60 mg and augmenting. Bladder scan less than 10. Urinalysis is negative 03/27/2022 Patient is very awake and oriented, she remains on respiratory distress requiring BiPAP on the same setting 714/7 with FiO2 of 30%. Patient kept on IV steroids of Solu-Medrol and Augmentin for moderately elevated pro-calcitonin 0.5 and suspicion of infection. Her creatinine back close to normal at 1.12, patient is off IV fluid Blood pressure is elevated and received 1 dose of hydralazine 25 mg when necessary, most likely secondary to steroid effect. We will put her on hydralazine 25 twice a day on the top of hydralazine when necessary. We'll keep monitor blood pressure closely 03/28/2022 Patient with acute COPD exacerbation and become BiPAP dependent the last 3 days, she still on BiPAP with a setting of 14/7 FiO2 30%, she is improving slowly and gradually. She had some trouble with duonebs so we switched her breathing treatment and albuterol. She looks S that's better. She is fully awake and oriented and fully interactive and denies any other complaints In the meantime she remains on Solu-Medrol 60 mg, augmenting and she kept in the ICU with close monitoring. Creatinine back to normal. Objective - Vital Signs Vital signs: Vital Signs Temp 98.0 F 03/28/22 08:00 Pulse 85 03/28/22 11:49 Resp 28 H 03/28/22 11:00 BP 171/102 03/28/22 11:00 Pulse Ox 95 03/28/22 10:00 FiO2 30 03/28/22 11:35 Intake & Output 03/27/22 03/28/22 03/28/22 18:59 06:59 18:59 Intake Total 875 Output Total 1160 800 0 Balance -285 -800 0 Intake: IV 675 Sodium Chloride 0.9% 1, 675 000 ml @ 75 mls/hr IV . [id number] [facility] Rx#:[id number] Oral 200 Output: Urine 1160 800 0 Other: Voiding Method Bedpan Bedpan # Voids 0 0 0 # Bowel Movements 1 - Exam GENERAL: The patient is alert and oriented x3, not in any acute distress. Well developed, well nourished. HEENT: Pupils are round and equally reacting to light. EOMI. No scleral icterus. No conjunctival pallor. Normocephalic, atraumatic. No pharyngeal erythema. No thyromegaly. CARDIOVASCULAR: S1 and S2 present. No murmurs, rubs, or gallops. -PULMONARY: Chest is clear to auscultation,. Bilateral scattered wheezing no rackles. ABDOMEN: Soft, nontender, nondistended, normoactive bowel sounds. No palpable organomegaly. MUSCULOSKELETAL: No joint swelling or deformity. EXTREMITIES: No cyanosis, clubbing, or pedal edema. NEUROLOGICAL: Gross neurological examination did not reveal any focal deficits. SKIN: No rashes. no petechiae. - Labs CBC & Chem 7: 03/28/22 06:13 03/28/22 06:13 Labs: Abnormal Lab Results - Last 24 Hours (Table) 03/27/22 03/27/22 03/27/22 Range/Units 17:20 20:43 22:07 ABG pCO2 57 H (35-45) mmHg ABG pO2 55 L* (83-108) mmHg ABG HCO3 32 H (21-25) mmol/L ABG Total CO2 34 H (19-24) mmol/L ABG O2 Saturation 87.7 L (94-97) % Carbon Dioxide (22-30) mmol/L BUN (7-17) mg/dL Glucose (74-99) mg/dL POC Glucose (mg/dL) 157 H 152 H (70-110) mg/dL 03/28/22 03/28/22 03/28/22 Range/Units 03:50 06:13 06:38 ABG pCO2 (35-45) mmHg ABG pO2 (83-108) mmHg ABG HCO3 (21-25) mmol/L ABG Total CO2 (19-24) mmol/L ABG O2 Saturation (94-97) % Carbon Dioxide 32 H 33 H (22-30) mmol/L BUN 30 H 28 H (7-17) mg/dL Glucose 141 H 138 H (74-99) mg/dL POC Glucose (mg/dL) 143 H (70-110) mg/dL 03/28/22 Range/Units 11:59 ABG pCO2 (35-45) mmHg ABG pO2 (83-108) mmHg ABG HCO3 (21-25) mmol/L ABG Total CO2 (19-24) mmol/L ABG O2 Saturation (94-97) % Carbon Dioxide (22-30) mmol/L BUN (7-17) mg/dL Glucose (74-99) mg/dL POC Glucose (mg/dL) 159 H (70-110) mg/dL Microbiology - Last 24 Hours (Table) 03/24/22 10:37 Blood Culture - Preliminary Blood No Growth after 96 hours 03/24/22 10:24 Blood Culture - Preliminary Blood No Growth after 96 hours Assessment and Plan Assessment: Acute COPD exacerbation Acute on chronic hypoxic respiratory failure Elevated creatinine, Hypertension nicotine dependence History of nephrectomy Plan: Continue with BiPAP and monitor the patient in the ICU Continue with Solu-Medrol Bronchodilator, albuterol when necessary Continue with antibiotics currently on Augmentin Pulmonary consult Labs and medication were reviewed.. Continue same treatment. Continue with symptomatic treatment. Resume home medication. Monitor lytes and vitals. DVT and GI prophylaxis. Further recommendations as per clinical course of the patient DVT prophylaxis: Subcutaneous heparin GI Prophylaxis: Pepcid Prognosis is guarded
[2022-03-29] MEDS: methylPREDNISolone SOD SUCCI 125 MG/2 ML VIAL IV SCH ×4 (00:08→18:24)
[2022-03-29 06:48] LABS: Glucose,Whole Blood 178 mg/dL (70-110)
[2022-03-29] MEDS: INSULIN ASPART (NovoLOG) 100 UNIT/ML VIAL SQ SCH ×4 (06:56→20:29)
[2022-03-29 07:17] LABS: HCT 39.7 % (34.0-46.0); HGB 12.7 gm/dL (11.4-16.0); Hypochromasia Slight; MCV 90.8 fL (80.0-100.0); Mean Platelet Volume 10.3; Platelet Count 211 k/uL (150-450); RBC 4.38 m/uL (3.80-5.40); RDW 13.9 % (11.5-15.5); WBC 5.6 k/uL (3.8-10.6)
[2022-03-29 07:28] LABS: Calcium 8.8 mg/dL (8.4-10.2); Potassium 4.9 mmol/L (3.5-5.1)
--- NOTE | 2022-03-29 08:05 | XR ---
EXAMINATION TYPE: XR chest 1V portable DATE OF EXAM: 03/29/2022 Comparison: 03/28/2022 Clinical History: 66-year-old female Shortness of breath Findings: Heart moderately enlarged. Hyperinflation. Tortuous/ectatic thoracic aorta with arch calcifications. Mild patchy density at the left base now present. No other consolidation or pleural effusion. Impression: Similar moderate cardiomegaly and COPD. Some patchy opacity at the left base likely atelectasis rathe r than developing infiltrate. Clinically correlate.
[2022-03-29] MEDS: HEPARIN SODIUM,PORCINE/PF 5,000 UNIT/0.5 ML SYRINGE SQ SCH ×2 (08:29→20:29)
[2022-03-29] MEDS: cloNIDine HCL 0.1 MG TAB PO SCH ×3 (08:29→21:41)
[2022-03-29] MEDS: LORATADINE 10 MG TAB PO SCH (08:29)
[2022-03-29] MEDS: NICOTINE 14MG/24HR PATCH TRANSDERM SCH (08:29)
[2022-03-29] MEDS: METOPROLOL SUCCINATE (ER) 100 MG TAB.ER.24H PO SCH (08:29)
[2022-03-29] MEDS: NIFEdipine XL 90 MG TAB.ER.24 PO SCH (08:29)
[2022-03-29] MEDS: FAMOTIDINE 20 MG TAB PO SCH (08:29)
[2022-03-29] MEDS: AMOXIC-POT CLAV 875-125MG 1 EACH TAB PO SCH (08:30)
[2022-03-29] MEDS: hydrALAZINE HCL 25 MG TAB PO SCH ×2 (08:30→20:29)
[2022-03-29] MEDS: BUDESONIDE 1 MG/2 ML NEBU INHALATION SCH ×2 (08:46→19:29)
[2022-03-29] MEDS: ALBUTEROL NEBULIZED 2.5 MG/3 ML INHALATION SCH ×4 (08:46→19:29)
--- NOTE | 2022-03-29 09:02 | P.PN ---
Subjective Patient is seen in follow-up for [place]. GFR back to baseline. On BiPap. Non- oliguric. Oral intake is good. Vital signs stable. On Bipap. Regular rate and rhythm Breath sounds decreased. No abdominal distention. No edema. Objective - Vital Signs Vital signs: Vital Signs Temp 98.2 F 03/29/22 04:00 Pulse 71 03/29/22 08:50 Resp 20 03/29/22 06:00 BP 147/94 03/29/22 06:00 Pulse Ox 97 03/29/22 08:45 FiO2 30 03/29/22 06:00 Intake & Output 03/28/22 03/29/22 03/29/22 18:59 06:59 18:59 Intake Total 480 Output Total 400 500 Balance -400 -20 Intake: Oral 480 Output: Urine 400 500 Other: Voiding Method Bedpan Bedpan # Voids 0 0 0 # Bowel Movements 1 - Labs CBC & Chem 7: 03/29/22 06:53 03/29/22 06:53 Labs: Abnormal Lab Results - Last 24 Hours (Table) 03/28/22 03/28/22 03/28/22 Range/Units 11:59 16:29 20:02 Sodium (137-145) mmol/L Carbon Dioxide (22-30) mmol/L BUN (7-17) mg/dL Glucose (74-99) mg/dL POC Glucose (mg/dL) 159 H 153 H 144 H (70-110) mg/dL 03/29/22 03/29/22 Range/Units 06:46 06:53 Sodium 135 L (137-145) mmol/L Carbon Dioxide 32 H (22-30) mmol/L BUN 25 H (7-17) mg/dL Glucose 166 H (74-99) mg/dL POC Glucose (mg/dL) 178 H (70-110) mg/dL Microbiology - Last 24 Hours (Table) 03/24/22 10:37 Blood Culture - Preliminary Blood No Growth after 96 hours 03/24/22 10:24 Blood Culture - Preliminary Blood No Growth after 96 hours Assessment and Plan Plan: Assessment: 1. Acute kidney injury, mostly pre-renal, improved with IVFs. GFR back to baseline - cr 0.89 today. 2. 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 3. Hx of right nephrectomy. 4. COPD exacerbation. 5. HTN with CKD. Stable. Exacerbated by steroids. Plan: Encouraged po intake. Off IV fluids. Avoid nehrotoxins.
[2022-03-29 11:34] LABS: Glucose,Whole Blood 185 mg/dL (70-110)
--- NOTE | 2022-03-29 12:19 | P.PN ---
Subjective Progress Note Date: 03/29/22 This is a pleasant 66-year-old female patient who resides in the [place] area. She's been here visiting her son. She does have a 50 year smoking history. She does have COPD. She does have Trelegy, albuterol HFA and nebulized treatments in the outpatient setting. She also has a history of hypertension, right nephrectomy, depression. Over the past 1 week she's had worsening shortness of breath, cough and congestion. She presented here to the emergency room yesterday for the same. Chest x-ray reveals chronic emphysematous changes and cardiomegaly without acute pulmonary process. CT angiogram ruled out pulmonary embolism. There is evidence of old granulomatous disease. Moderate emphysematous changes and cardiomegaly without acute pulmonary process. Possible mild congestive heart failure. EKG reveals sinus tachycardia without acute ST or T wave abnormalities. Blood cultures reveal no growth to date. White count 3.2. Hemoglobin 12.5. INR 1.1. D-dimer 2.24. Sodium 136. Potassium 4.1. BUN 20. Creatinine 1.3. Glucose 171. Influenza screen negative. RSV screen negative. Coronavirus negative. Urinalysis negative. She is seen today in consultation on the regular medical floor. She currently sitting up in bed. Awake and alert in no acute distress. She is maintaining O2 saturations in the upper 90s on 4 L/m per nasal cannula. She is dyspneic with conversation. Dyspneic with minimal exertion. She's been initiated on DuoNeb inhalations, Solu-Medrol, antibiotics in the form of Augmentin. NicoDerm patch in place. Heparin for DVT prophylaxis. The patient is seen today 03/26/2022 and follow-up in the intensive care unit. Last night approximately 9:30 PM the patient was found unresponsive and with agonal breathing. She did have a pulse at that time. This is about 5 minutes after she had been seen and had received a breathing treatment. She did require respiratory assistance with Ambu bag and subsequent BiPAP support. When [employer] and hospitalist arrived the patient was alert and responsive. Blood gases revealed a pO2 of 139, pCO2 of 106 and a pH of 7.10 on 50% FiO2. He was transferred to the intensive care unit for closer observation. She is seen today currently on the BiPAP at 14/7 and 30% FiO2. She is awake and alert. Normal saline at 75 mL per hour. She is continued on DuoNeb inhalations, Pulmicort and Perforomist inhalations, IV Solu-Medrol. Empiric antibiotics in the form of Augmentin. NicoDerm patch in place. The patient is seen today 03/27/2022 in follow-up in the intensive care unit. She remains awake and alert. She is still quite BiPAP dependent. Currently 14/7 and 30% FiO2. She only tolerates about 10-20 minutes off the BiPAP on nasal cannula. Chest x-ray reveals moderate cardiomegaly and COPD. Similar findings. A new 1.4 cm nodular density in left upper lobe not previously present. Possible superimposition of shadows/external artifact. No acute pulmonary process. She remains on DuoNeb inhalations, Pulmicort and Perforomist inhalations, IV Solu-Medrol. NicoDerm patches in place. Empiric antibiotics in the form of Augmentin. She still having some hypertension. She is due for clonidine a presently in [facility]. May require clevidipine drip if no improvement. The patient is seen today 03/28/2022 in follow-up in the intensive care unit. She is currently on BiPAP 14/7 and 30% FiO2. She seems to have more trouble with the DuoNeb breathing treatments and Perforomist. She does better on albuterol. Currently resting fairly comfortably in bed. Shee admits to feeling a bit better today compared to yesterday. Chest x-ray shows moderate cardiomegaly and COPD. No nodular density in the left upper lobe today. Blood cultures reveal no growth to date. White count 5.1. Hemoglobin 12.4. Sodium 139. Potassium 4.2. Bicarb 33. BUN 28. Creatinine 0.99. Glucose 138. She is continued on albuterol nebulized treatments, Pulmicort inhalations twice a day. Empiric antibiotics in the form of Augmentin. She remains on IV Solu- Medrol. Heparin for DVT prophylaxis. NicoDerm patch in place. The patient is seen today 03/29/2022 in follow-up in the intensive care unit. She is currently awake and alert in no acute distress. On 4 L nasal cannula with O2 saturation in the 90s. She did utilize BiPAP throughout the night at 14/7 and 30% FiO2. No IV fluids. She is continued on Pulmicort inhalations, albuterol nebulized treatments, IV Solu-Medrol. NicoDerm patch in place. Heparin for DVT prophylaxis. White count 5.6. Hemoglobin 12.7. Sodium 135. Potassium 4.9. BUN 25. Creatinine 0.89. Glucose 166. Chest x-ray reveals similar moderate cardiomegaly and COPD. Some patchy opacity left base likely atelectasis. Objective - Vital Signs Vital signs: Vital Signs Temp 97.7 F 03/29/22 08:00 Pulse 81 03/29/22 11:00 Resp 28 H 03/29/22 11:00 BP 135/84 03/29/22 11:00 Pulse Ox 98 03/29/22 10:00 FiO2 30 03/29/22 08:00 Intake & Output 03/28/22 03/29/22 03/29/22 18:59 06:59 18:59 Intake Total 480 200 Output Total 400 500 250 Balance -400 -20 -50 Intake: Oral 480 200 Output: Urine 400 500 250 Other: Voiding Method Bedpan Bedpan Bedpan # Voids 0 0 0 # Bowel Movements 1 1 - Exam GENERAL EXAM: Alert, pleasant 66-year-old female, on 4 L nasal cannula, comfortable in no apparent distress. HEAD: Normocephalic. EYES: Normal reaction of pupils, equal size. NOSE: Clear with pink turbinates. THROAT: No erythema or exudates. NECK: No masses, no JVD. CHEST: No chest wall deformity. LUNGS: Equal air entry with bilateral end expiratory wheeze, diminished. CVS: S1 and S2 normal with no audible murmur, regular rhythm. ABDOMEN: No hepatosplenomegaly, normal bowel sounds, no guarding or rigidity. SPINE: No scoliosis or deformity SKIN: No rashes CENTRAL NERVOUS SYSTEM: No focal deficits, tone is normal in all 4 extremities. EXTREMITIES: There is no peripheral edema. No clubbing, no cyanosis. Peripheral pulses are intact. - Labs CBC & Chem 7: 03/29/22 06:53 03/29/22 06:53 Labs: Abnormal Lab Results - Last 24 Hours (Table) 03/28/22 03/28/22 03/29/22 Range/Units 16:29 20:02 06:46 Sodium (137-145) mmol/L Carbon Dioxide (22-30) mmol/L BUN (7-17) mg/dL Glucose (74-99) mg/dL POC Glucose (mg/dL) 153 H 144 H 178 H (70-110) mg/dL 03/29/22 03/29/22 Range/Units 06:53 11: Sodium 135 L (137-145) mmol/L Carbon Dioxide 32 H (22-30) mmol/L BUN 25 H (7-17) mg/dL Glucose 166 H (74-99) mg/dL POC Glucose (mg/dL) 185 H (70-110) mg/dL Microbiology - Last 24 Hours (Table) 03/24/22 10:37 Blood Culture - Preliminary Blood No Growth after 96 hours 03/24/22 10:24 Blood Culture - Preliminary Blood No Growth after 96 hours Assessment and Plan Assessment: Acute hypercapnic respiratory failure secondary to an acute exacerbation of chronic obstructive pulmonary disease requiring BiPAP support, rapid response team required on 03/25/2022 and was transferred to the ICU Acute exacerbation of chronic obstructive pulmonary disease Acute on chronic hypoxemic respiratory failure secondary to above Chronic and ongoing tobacco dependence of 50 years History of hypertension History of depression Plan: The patient was seen and evaluated She is bit more awake and alert today Chest x-ray, labs and medications reviewed Currently on 4 L nasal cannula Continue albuterol, Pulmicort, IV solu Medrol Titrate the FiO2 as tolerated Prognosis is guarded We will continue to follow I have personally seen and examined the patient, performed the documentation and the assessment and plan as written. Number of minutes spent on the visit: 10.
[2022-03-29 16:45] LABS: Glucose,Whole Blood 183 mg/dL (70-110)
[2022-03-29 20:25] LABS: Glucose,Whole Blood 174 mg/dL (70-110)
[2022-03-30] MEDS: methylPREDNISolone SOD SUCCI 125 MG/2 ML VIAL IV SCH ×4 (00:27→17:57)
--- NOTE | 2022-03-30 06:01 | PN ---
PROGRESS NOTE DATE OF SERVICE: 03/29/2022 SUBJECTIVE: This 66-year-old woman who was admitted with COPD acute exacerbation, is on BiPAP. The patient is closely monitored at this time. The patient also had respiratory failure, also multiple . The patient is on steroids and bronchodilators. The patient is monitored in ICU. PAST MEDICAL HISTORY: Reviewed. REVIEW OF SYSTEMS: Could not be taken. CURRENT MEDICATIONS: Reviewed include Ventolin. Doses and rest of the medications noted. PHYSICAL EXAMINATION: VITAL SIGNS: Pulse is 90, blood pressure isntd, respiration 34. HEENT: Conjunctivae normal. NECK: n CARDIOVASCULAR: S1, S2 present. RESPIRATIONS: Bilateral scattered rhonchi and crackles. ABDOMEN: Soft, nontender. LEGS: No edema. NERVOUS SYSTEM: Nonfocal. LABS: Accu-Cheks noted. Sodium 135. Rest of the labs are noted. ASSESSMENT: 1. Chronic obstructive pulmonary disease acute exacerbation with acute hypoxic respiratory failure. 2. Elevated creatinine. 3. Hypertension. 4. Multiple medical issues. RECOMMENDATIONS: I recommend to continue current management. Continue the bronchodilators, steroids and DVT prophylaxis. Continue to monitor. Guarded prognosis. Further recommendations to follow. We will initiate home medications as well as obtain labs tomorrow. MMODL / IJN: [id number] / JOSE
[2022-03-30 06:18] LABS: Basophils % (A) 0 %; Eosinophils # (A) 0.1 k/uL (0-0.7); Eosinophils % (A) 1 %; HCT 41.1 % (34.0-46.0); HGB 13.3 gm/dL (11.4-16.0); Lymphocytes % (A) 13 %; MCH 29.2 pg (25.0-35.0); MCHC 32.3 g/dL (31.0-37.0); MCV 90.5 fL (80.0-100.0); Mean Platelet Volume 11.2; Monocytes # (A) 0.4 k/uL (0-1.0); Monocytes % (A) 5 %; Neutrophils # (A) 5.9 k/uL (1.3-7.7); Neutrophils % (A) 80 %; Platelet Count 230 k/uL (150-450); RBC 4.54 m/uL (3.80-5.40); RDW 13.9 % (11.5-15.5); WBC 7.5 k/uL (3.8-10.6)
[2022-03-30 06:37] LABS: Albumin 3.5 g/dL (3.5-5.0); Calcium 8.7 mg/dL (8.4-10.2); Total Bilirubin 0.4 mg/dL (0.2-1.3); Total Protein 5.8 g/dL (6.3-8.2)
[2022-03-30 06:54] LABS: Glucose,Whole Blood 128 mg/dL (70-110)
[2022-03-30] MEDS: INSULIN ASPART (NovoLOG) 100 UNIT/ML VIAL SQ SCH ×4 (06:54→21:12)
[2022-03-30] MEDS: ALBUTEROL NEBULIZED 2.5 MG/3 ML INHALATION SCH ×4 (07:47→20:17)
[2022-03-30] MEDS: BUDESONIDE 1 MG/2 ML NEBU INHALATION SCH ×2 (07:48→20:17)
--- NOTE | 2022-03-30 08:04 | XR ---
EXAMINATION TYPE: XR chest 1V portable DATE OF EXAM: 03/30/2022 Comparison: 03/29/2022 Clinical History: 66-year-old female Shortness of breath Findings: Heart mildly enlarged. Hyperinflation. Increasing bandlike opacity right midlung. Aeration at the lef t base has improved. No pleural effusion. Impression: Similar cardiomegaly and COPD. Improving aeration at the left base. Worsening aeration, likely bandli ke atelectasis at the right midlung.
[2022-03-30] MEDS: FAMOTIDINE 20 MG TAB PO SCH (08:29)
[2022-03-30] MEDS: METOPROLOL SUCCINATE (ER) 100 MG TAB.ER.24H PO SCH (08:29)
[2022-03-30] MEDS: NICOTINE 14MG/24HR PATCH TRANSDERM SCH (08:29)
[2022-03-30] MEDS: cloNIDine HCL 0.1 MG TAB PO SCH ×3 (08:29→21:06)
[2022-03-30] MEDS: NIFEdipine XL 90 MG TAB.ER.24 PO SCH (08:29)
[2022-03-30] MEDS: HEPARIN SODIUM,PORCINE/PF 5,000 UNIT/0.5 ML SYRINGE SQ SCH ×2 (08:29→21:06)
[2022-03-30] MEDS: hydrALAZINE HCL 25 MG TAB PO SCH ×2 (08:29→21:06)
[2022-03-30] MEDS: LORATADINE 10 MG TAB PO SCH (08:29)
[2022-03-30] MEDS: ALPRAZolam 0.5 MG TAB PO PRN (08:38)
[2022-03-30 11:19] LABS: Glucose,Whole Blood 227 mg/dL (70-110)
--- NOTE | 2022-03-30 12:33 | P.PN ---
Subjective Progress Note Date: 03/30/22 Principal diagnosis: Shortness of breath. The patient is seen today 03/28/2022 in follow-up in the intensive care unit. She is currently on BiPAP 14/7 and 30% FiO2. She seems to have more trouble with the DuoNeb breathing treatments and Perforomist. She does better on albuterol. Currently resting fairly comfortably in bed. Shee admits to feeling a bit better today compared to yesterday. Chest x-ray shows moderate cardiomegaly and COPD. No nodular density in the left upper lobe today. Blood cultures reveal no growth to date. White count 5.1. Hemoglobin 12.4. Sodium 139. Potassium 4.2. Bicarb 33. BUN 28. Creatinine 0.99. Glucose 138. She is continued on albuterol nebulized treatments, Pulmicort inhalations twice a day. Empiric antibiotics in the form of Augmentin. She remains on IV Solu- Medrol. Heparin for DVT prophylaxis. NicoDerm patch in place. The patient is seen today 03/29/2022 in follow-up in the intensive care unit. She is currently awake and alert in no acute distress. On 4 L nasal cannula with O2 saturation in the 90s. She did utilize BiPAP throughout the night at 14/7 and 30% FiO2. No IV fluids. She is continued on Pulmicort inhalations, albuterol nebulized treatments, IV Solu-Medrol. NicoDerm patch in place. Heparin for DVT prophylaxis. White count 5.6. Hemoglobin 12.7. Sodium 135. Potassium 4.9. BUN 25. Creatinine 0.89. Glucose 166. Chest x-ray reveals similar moderate cardiomegaly and COPD. Some patchy opacity left base likely atelectasis. Progress note dated 03/30/2022. This is a 66-year-old black female seen in room 262, intensive care unit. He is currently on 3 L of oxygen. She did use BiPAP last night. Settings were 14/7 and 30%. She's not receiving any IV fluids. In my opinion, the patient could be transferred to the 3 S. floor. Her breathing is much improved. White count 7.5, hemoglobin 13.3, hematocrit 41.1, and platelet count 230,000. Sodium 135, potassium 5, chlorides 98, CO2 33, BUN 28, and creatinine 0.85. Blood cultures are negative. Chest x-ray shows changes of COPD, and bilateral infiltrates, a bit improved. Objective - Vital Signs Vital signs: Vital Signs Temp 98.1 F 03/30/22 08:00 Pulse 75 03/30/22 12:09 Resp 20 03/30/22 12:00 BP 127/86 03/30/22 12:00 Pulse Ox 100 03/30/22 12:00 FiO2 30 03/30/22 04:00 Intake & Output 03/29/22 03/30/22 03/30/22 18:59 06:59 18:59 Intake Total 400 Output Total 850 1000 0 Balance -450 -1000 0 Weight 78.6 kg Intake: Oral 400 Output: Urine 850 1000 0 Other: Voiding Method Bedpan Bedpan Bedside Commode # Voids 0 1 1 # Bowel Movements 1 1 - Exam No acute distress, oriented 3. Currently on 3 L of oxygen. No audible wheezi ng or use of accessory muscles. HEENT examination is grossly unremarkable. Neck supple. Full range of motion. No adenopathy thyromegaly or neck vein distention. Cardiovascular examination reveals regular rhythm rate. S1-S2 normal. No S3 or S4. No discernible murmur noted. Heart sounds are distant, with a heart rate of 75 bpm. Lungs reveal bilateral expiratory wheezes and rhonchi. Breath sounds equal bilaterally. No crackles. There is prolongation on forced maneuver. Adventitious lung sounds are more prominent on forced maneuver. Abdomen soft bowel sounds are heard. No masses or tenderness. Extremities are intact. No cyanosis clubbing or edema. Skin is without rash or lesion. Neurologic examination is brief but nonfocal. - Labs CBC & Chem 7: 03/30/22 05:07 03/30/22 05:07 Labs: Abnormal Lab Results - Last 24 Hours (Table) 03/29/22 03/29/22 03/30/22 Range/Units 16:33 20:23 05:07 Sodium 135 L (137-145) mmol/L Carbon Dioxide 33 H (22-30) mmol/L BUN 28 H (7-17) mg/dL Glucose 137 H (74-99) mg/dL POC Glucose (mg/dL) 183 H 174 H (70-110) mg/dL Total Protein 5.8 L (6.3-8.2) g/dL 03/30/22 03/30/22 Range/Units 06:51 11:18 Sodium (137-145) mmol/L Carbon Dioxide (22-30) mmol/L BUN (7-17) mg/dL Glucose (74-99) mg/dL POC Glucose (mg/dL) 128 H 227 H (70-110) mg/dL Total Protein (6.3-8.2) g/dL Microbiology - Last 24 Hours (Table) 03/24/22 10:24 Blood Culture - Preliminary Blood No Growth after 120 hours 03/24/22 10:37 Blood Culture - Preliminary Blood No Growth after 120 hours Assessment and Plan Assessment: Acute hypercapnic respiratory failure secondary to an acute exacerbation of ch ronic obstructive pulmonary disease requiring BiPAP support, rapid response team required on 03/25/2022 and was transferred to the ICU. Acute exacerbation of chronic obstructive pulmonary disease. Acute on chronic hypoxemic respiratory failure secondary to above. Chronic and ongoing tobacco dependence of 50 years. History of hypertension. History of depression. Plan: Plan dated 03/30/2022. The patient is seen and examined in room 262. The patient's currently on 3 L of oxygen. The patient's on other appropriate medications including updrafts, and Solu-Medrol. Labs, x-rays, and medications are all reviewed. In my opinion, later today, the patient could be transferred out to the cardiology floor. We'll continue to follow her and monitor her closely. Prognosis is guarded. Time with Patient: Less than 30
[2022-03-30 16:42] LABS: Glucose,Whole Blood 160 mg/dL (70-110)
[2022-03-30 21:11] LABS: Glucose,Whole Blood 188 mg/dL (70-110)
[2022-03-31] MEDS: methylPREDNISolone SOD SUCCI 125 MG/2 ML VIAL IV SCH ×4 (00:22→17:54)
--- NOTE | 2022-03-31 04:38 | PN ---
PROGRESS NOTE DATE OF SERVICE: 03/30/2022 SUBJECTIVE: This 66-year-old woman was admitted with COPD, acute exacerbation, also hypoxic respiratory failure, was on and off BiPAP. The sensorium has improved significantly today. The chest x-ray which I reviewed personally showed some cardiomegaly and COPD and improving in the left lower lobe was noted. PAST MEDICAL HISTORY: Reviewed. REVIEW OF SYSTEMS: Could not be taken, the patient is still mildly confused. CURRENT MEDICATIONS: Noted including Ventolin. Doses and rest of medication noted. PHYSICAL EXAMINATION: VITAL SIGNS: Pulse is 76, blood pressure 145/93, respirations 20. HEENT: Conjunctivae normal. NECK: No JVD. CARDIOVASCULAR: S1, S2 muffled. RESPIRATIONS: Bilateral scattered rhonchi. ABDOMEN: Soft, nontender. NERVOUS SYSTEM: No focal deficits. LABS: Glucose 128. Rest of the labs are noted. ASSESSMENT: 1. Chronic obstructive pulmonary disease with acute hypoxic respiratory failure, on BiPAP. 2. Elevated creatinine. 3. Hypertension. 4. Multiple medical issues. RECOMMENDATIONS: I recommend to continue current management. Continue with bronchodilators. Repeat labs. Sugars are elevated. The patient is on IV Solu-Medrol, so we will continue to monitor. Guarded prognosis. Further recommendations to follow. See orders for further details. MMODL / IJN: [id number] / MTDMonica
[2022-03-31 06:53] LABS: Glucose,Whole Blood 147 mg/dL (70-110)
[2022-03-31] MEDS: ALBUTEROL NEBULIZED 2.5 MG/3 ML INHALATION SCH ×4 (07:36→21:41)
[2022-03-31] MEDS: BUDESONIDE 1 MG/2 ML NEBU INHALATION SCH ×2 (07:36→21:41)
[2022-03-31] MEDS: INSULIN ASPART (NovoLOG) 100 UNIT/ML VIAL SQ SCH ×4 (07:41→20:14)
[2022-03-31] MEDS: NIFEdipine XL 90 MG TAB.ER.24 PO SCH (07:59)
[2022-03-31] MEDS: METOPROLOL SUCCINATE (ER) 100 MG TAB.ER.24H PO SCH (07:59)
[2022-03-31] MEDS: HEPARIN SODIUM,PORCINE/PF 5,000 UNIT/0.5 ML SYRINGE SQ SCH ×2 (07:59→20:13)
[2022-03-31] MEDS: cloNIDine HCL 0.1 MG TAB PO SCH ×3 (07:59→20:13)
[2022-03-31] MEDS: hydrALAZINE HCL 25 MG TAB PO SCH ×2 (07:59→20:13)
[2022-03-31] MEDS: NICOTINE 14MG/24HR PATCH TRANSDERM SCH (07:59)
[2022-03-31] MEDS: FAMOTIDINE 20 MG TAB PO SCH (07:59)
[2022-03-31] MEDS: LORATADINE 10 MG TAB PO SCH (07:59)
[2022-03-31 08:32] LABS: Basophils # (A) 0.1 k/uL (0-0.2); Basophils % (A) 1 %; Eosinophils # (A) 0.1 k/uL (0-0.7); Eosinophils % (A) 1 %; HCT 42.9 % (34.0-46.0); HGB 13.6 gm/dL (11.4-16.0); Hypochromasia Slight; Lymphocytes # (A) 0.8 k/uL (1.0-4.8); Lymphocytes % (A) 8 %; MCH 29.2 pg (25.0-35.0); MCHC 31.8 g/dL (31.0-37.0); MCV 91.9 fL (80.0-100.0); Mean Platelet Volume 10.6; Monocytes # (A) 0.3 k/uL (0-1.0); Monocytes % (A) 3 %; Neutrophils # (A) 8.5 k/uL (1.3-7.7); Neutrophils % (A) 86 %; Platelet Count 238 k/uL (150-450); RBC 4.67 m/uL (3.80-5.40); RDW 13.6 % (11.5-15.5); WBC 9.9 k/uL (3.8-10.6)
[2022-03-31 08:52] LABS: Albumin 3.4 g/dL (3.5-5.0); Calcium 8.8 mg/dL (8.4-10.2); Potassium 4.8 mmol/L (3.5-5.1); Total Bilirubin 0.4 mg/dL (0.2-1.3); Total Protein 5.6 g/dL (6.3-8.2)
--- NOTE | 2022-03-31 08:55 | P.PN ---
Subjective Patient is seen in follow-up for [place]. GFR back to baseline. Currently on nasal cannula. Non-oliguric. Oral intake is good. No active complaints. Vital signs stable. No acute distress. On nasal cannula. Regular rate and rhythm Breath sounds decreased. No abdominal distention. No edema. Objective - Vital Signs Vital signs: Vital Signs Temp 97.1 F L 03/31/22 08:00 Pulse 73 03/31/22 08:00 Resp 22 03/31/22 08:00 BP 140/88 03/31/22 08:00 Pulse Ox 98 03/31/22 08:00 FiO2 30 03/31/22 07:36 Intake & Output 03/30/22 03/31/22 03/31/22 18:59 06:59 18:59 Output Total 250 300 Balance -250 -300 Output: Urine 250 300 Other: Voiding Method Bedside Commode Bedside Commode Bedside Commode Bedpan # Voids 1 1 # Bowel Movements 1 1 - Labs CBC & Chem 7: 03/31/22 07:58 03/31/22 07:58 Labs: Abnormal Lab Results - Last 24 Hours (Table) 03/30/22 03/30/22 03/30/22 Range/Units 11:18 16:30 21:09 Neutrophils # (1.3-7.7) k/uL Lymphocytes # (1.0-4.8) k/uL Carbon Dioxide (22-30) mmol/L BUN (7-17) mg/dL Glucose (74-99) mg/dL POC Glucose (mg/dL) 227 H 160 H 188 H (70-110) mg/dL Total Protein (6.3-8.2) g/dL Albumin (3.5-5.0) g/dL 03/31/22 03/31/22 03/31/22 Range/Units 06:52 07:58 07:58 Neutrophils # 8.5 H (1.3-7.7) k/uL Lymphocytes # 0.8 L (1.0-4.8) k/uL Carbon Dioxide 35 H (22-30) mmol/L BUN 31 H (7-17) mg/dL Glucose 156 H (74-99) mg/dL POC Glucose (mg/dL) 147 H (70-110) mg/dL Total Protein 5.6 L (6.3-8.2) g/dL Albumin 3.4 L (3.5-5.0) g/dL Microbiology - Last 24 Hours (Table) 03/24/22 10:37 Blood Culture - Final Blood No Growth after 144 hours 03/24/22 10:24 Blood Culture - Final Blood No Growth after 144 hours Assessment and Plan Plan: Assessment: 1. Acute kidney injury, mostly pre-renal, improved with IVFs. GFR back to baseline - cr 0.97 today. 2. 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 3. Hx of right nephrectomy. 4. COPD exacerbation. 5. HTN with CKD. Stable. Exacerbated by steroids. Fairly stable this morning. Plan: Encouraged po intake. Avoid nehrotoxins.
[2022-03-31 10:15] VITALS: BMI 27.9
--- NOTE | 2022-03-31 11:27 | P.PN ---
Subjective Progress Note Date: 03/31/22 On 03/31/2022, seeing the patient for a follow-up. This morning, the patient is resting comfortably in bed. He is on oxygen at 3 L nasal cannula. Note that she got transferred to our intensive. She is in for an an acute COPD exacerbation and the patient gradually improved. He was on BiPAP for few days. Otherwise, she is comparable. She is communicating. She is in sinus. Her pulse ox is 99%. Hemodynamically stable. As far as the blood work, the patient has a white cell count 9.9 with a hemoglobin 13.6, electrolytes are normal, renal function is normal. Blood cultures have been negative. Covid 19 testing has been negative and influenza screen has been negative and RSV screen has also bee n negative. Objective - Vital Signs Vital signs: Vital Signs Temp 97.1 F L 03/31/22 08:00 Pulse 73 03/31/22 08:00 Resp 22 03/31/22 08:00 BP 140/88 03/31/22 08:00 Pulse Ox 98 03/31/22 08:00 FiO2 30 03/31/22 07:36 Intake & Output 03/30/22 03/31/22 03/31/22 18:59 06:59 18:59 Output Total 250 300 Balance -250 -300 Weight 78.6 kg Output: Urine 250 300 Other: Voiding Method Bedside Commode Bedside Commode Bedside Commode Bedpan # Voids 1 1 # Bowel Movements 1 1 - Exam No acute distress, oriented 3. Currently on 3 L of oxygen. No audible wheezing or use of accessory muscles. HEENT examination is grossly unremarkable. Neck supple. Full range of motion. No adenopathy thyromegaly or neck vein distention. Cardiovascular examination reveals regular rhythm rate. S1-S2 normal. No S3 or S4. No discernible murmur noted. Heart sounds are distant, with a heart rate of 75 bpm. Lungs reveal bilateral expiratory wheezes and rhonchi. Breath sounds equal bilaterally. No crackles. There is prolongation on forced maneuver. Adventitious lung sounds are more prominent on forced maneuver. Abdomen soft bowel sounds are heard. No masses or tenderness. Extremities are intact. No cyanosis clubbing or edema. Skin is without rash or lesion. Neurologic examination is brief but nonfocal. - Labs CBC & Chem 7: 03/31/22 07:58 03/31/22 07:58 Labs: Abnormal Lab Results - Last 24 Hours (Table) 03/30/22 03/30/22 03/31/22 Range/Units 16:30 21:09 06:52 Neutrophils # (1.3-7.7) k/uL Lymphocytes # (1.0-4.8) k/uL Carbon Dioxide (22-30) mmol/L BUN (7-17) mg/dL Glucose (74-99) mg/dL POC Glucose (mg/dL) 160 H 188 H 147 H (70-110) mg/dL Total Protein (6.3-8.2) g/dL Albumin (3.5-5.0) g/dL 03/31/22 03/31/22 Range/Units 07:58 07:58 Neutrophils # 8.5 H (1.3-7.7) k/uL Lymphocytes # 0.8 L (1.0-4.8) k/uL Carbon Dioxide 35 H (22-30) mmol/L BUN 31 H (7-17) mg/dL Glucose 156 H (74-99) mg/dL POC Glucose (mg/dL) (70-110) mg/dL Total Protein 5.6 L (6.3-8.2) g/dL Albumin 3.4 L (3.5-5.0) g/dL Microbiology - Last 24 Hours (Table) 03/24/22 10:37 Blood Culture - Final Blood No Growth after 144 hours 03/24/22 10:24 Blood Culture - Final Blood No Growth after 144 hours Assessment and Plan Plan: Acute hypercapnic respiratory failure secondary to an acute exacerbation of chronic obstructive pulmonary disease requiring BiPAP support, rapid response team required on 03/25/2022 and was transferred to the ICU. Clinically improved and the patient is currently on oxygen at 3 L/m nasal cannula. The patient is off the BiPAP. Acute exacerbation of chronic obstructive pulmonary disease. Acute on chronic hypoxemic respiratory failure secondary to above. Chronic and ongoing tobacco dependence of 50 years. History of hypertension. History of depression. Plan: Clinically improving and a chest x-ray showed no evidence of any pneumonia Plan chest x-ray was reviewed from today. There is some scoliosis, hyperinflation without any acute abnormalities. No airspace disease or pulmonary infiltrates. Keep oxygen at 3 L Wean down FiO2 as tolerated Continue bronchodilators and continued IV Solu-Medrol 60 mg every 6 hours Nicotine patch Improve mobility and transfer the patient to medical floor
[2022-03-31 12:28] LABS: Glucose,Whole Blood 201 mg/dL (70-110)
--- NOTE | 2022-03-31 14:56 | P.PN ---
Subjective Progress Note Date: 03/31/22 This is a 66-year-old female who was recently admitted with COPD, acute exacerbation also hypoxic respiratory failure continues in the ICU and has been intermittently using BiPAP. Patient currently maintained on 3 L via nasal cannula with oxygen saturations of 98%. Patient's mentation is improved and currently sitting up in the chair. Patient with significant weakness will have physical therapy evaluate the patient. Recommend continue with IV steroids along with DuoNeb treatments and pulmonary following closely. Patient is a hold in the ICU awaiting a bed on a medical surgical floor. Will await physical therapy notes. Patient is afebrile denies chest pain or worsening shortness of breath. Patient is tolerating diet with no reports of nausea or vomiting noted. Review of systems: Constitutional: No reports of fatigue, fever, or chills Cardiovascular: No reports of chest pain or palpitations Respiratory: No reports of worsening shortness of breath GI: no reports of nausea, no reports of of vomiting, or diarrhea : No reports of dysuria or retention Neurovascular: reports of generalized weakness All medications have been reviewed Active Medications Acetaminophen (Acetaminophen Tab 325 Mg Tab) 650 mg PO Q4HR PRN PRN Reason: Mild Pain or Fever > 100.5 Albuterol Sulfate (Albuterol Hfa Inhaler) 2 puff INHALATION RT-QID PRN PRN Reason: Shortness Of Breath Or Wheezing Albuterol Sulfate (Albuterol Nebulized 2.5 Mg/3 Ml) 2.5 mg INHALATION RT-QID S Last Admin: 03/31/22 11:29 Dose: 2.5 mg Alprazolam (Alprazolam 0.5 Mg Tab) 0.5 mg PO BID PRN PRN Reason: Anxiety Last Admin: 03/30/22 08:38 Dose: 0.5 mg Budesonide (Budesonide 1 Mg/2 Ml Nebu) 1 mg INHALATION RT-BID [facility] Last Admin: 03/31/22 07:36 Dose: 1 mg Clonidine (Clonidine Hcl 0.1 Mg Tab) 0.3 mg PO TID [facility] Last Admin: 03/31/22 07:59 Dose: 0.3 mg Dextrose/Water (Dextrose 50% Syringe 50 Ml) 25 ml IVP PER PROTOCOL PRN; Protocol PRN Reason: Hypoglycemia Dextrose/Water (Dextrose 50% Syringe 50 Ml) 50 ml IVP PER PROTOCOL PRN; Protocol PRN Reason: Hypoglycemia Famotidine (Famotidine 20 Mg Tab) 20 mg PO DAILY [facility] Last Admin: 03/31/22 07:59 Dose: 20 mg Heparin Sodium (Porcine) (Heparin Sodium,Porcine/Pf 5,000 Unit/0.5 Ml Syringe) 5,000 unit SQ Q12HR [facility] Last Admin: 03/31/22 07:59 Dose: 5,000 unit Hydralazine HCl (Hydralazine Hcl 25 Mg Tab) 25 mg PO QID PRN PRN Reason: Blood Pressure - High Last Admin: 03/27/22 10:14 Dose: 25 mg Hydralazine HCl (Hydralazine Hcl 25 Mg Tab) 25 mg PO BID [facility] Last Admin: 03/31/22 07:59 Dose: 25 mg Insulin Aspart (Insulin Aspart (Novolog) 100 Unit/Ml Vial) 0 unit SQ ACHS [facility]; Protocol Last Admin: 03/31/22 12:30 Dose: 2 unit Loratadine (Loratadine 10 Mg Tab) 10 mg PO DAILY [facility] Last Admin: 03/31/22 07:59 Dose: 10 mg Methylprednisolone Sodium Succinate (Methylprednisolone Sod Succi 125 Mg/2 Ml Vial) 60 mg IV Q6HR [facility] Last Admin: 03/31/22 12:30 Dose: 60 mg Metoprolol Succinate (Metoprolol Succinate (Er) 100 Mg Tab.Er.24h) 100 mg PO DAILY [facility] Last Admin: 03/31/22 07:59 Dose: 100 mg Naloxone HCl (Naloxone 0.4 Mg/Ml 1 Ml Vial) 0.2 mg IVP Q2M PRN PRN Reason: Opioid Reversal Nicotine (Nicotine 14mg/24hr Patch) 1 patch TRANSDERM DAILY [facility] Last Admin: 03/31/22 07:59 Dose: 1 patch Nifedipine (Nifedipine Xl 90 Mg Tab.Er.24) 90 mg PO DAILY [facility] Last Admin: 03/31/22 07:59 Dose: 90 mg PHYSICAL EXAMINATION: GENERAL: The patient is alert and oriented x3, Well developed, well nourished. HEENT: Pupils are round and equally reacting to light. EOMI. no scleral icterus. No conjunctival pallor. Normocephalic, atraumatic. No pharyngeal erythema. No thyromegaly. CARDIOVASCULAR: S1 and S2 muffled PULMONARY: diminished breath sounds bilaterally with scattered rhonchi with ex piratory wheezing noted. ABDOMEN: soft. Nontender on exam. non-distended, normoactive bowel sounds. No palpable organomegaly. MUSCULOSKELETAL: No joint swelling or deformity. EXTREMITIES: No cyanosis, clubbing, or pedal edema. NEUROLOGICAL: Gross neurological examination did not reveal any focal deficits. Diffuse weakness SKIN: No rashes. Assessment: Chronic obstructive pulmonary disease with acute hypoxic respiratory failure, requiring BiPAP Acute on chronic hypoxic respiratory failure as patient wears 2 L via nasal cannula chronically. Elevated creatinine Hypertension History of depression Generalized weakness GI prophylaxis DVT prophylaxis Full code Plan: Recommend to continue with current medications and management with pulmonary following. Patient is currently continued in the ICU although a transfer and downgrade to a [facility] floor once a bed becomes available. Patient with significant weakness will have PT/OT therapy evaluate the patient. Patient with significant improvement in mentation currently sitting up alert and oriented on 2-3 L via nasal cannula with oxygen saturations of 98%. Patient has been off BiPAP. Patient will continue on IV steroids and recommend Accu-Cheks before meals and at bedtime and sliding scale. Will await PT/OT therapy notes and encouraged to increase activity as tolerated along with encouraging oral intake. Kidney functions improving and current creatinine is 0.97. Due to multiple convex medical issues, prognosis is guarded. The impression and plan of care has been dictated by Ellen Hart, nurse practitioner as directed. Dr. Hans BECERRA I have performed a history and examination and MDM of this patient, discussed the same with the dictator, and agree with the dictator's assessment and plan as written ,documented as a scribe. Based on total visit time, I have performed more than 50% of the visit. Any additional findings or plans will be noted. Objective - Vital Signs Vital signs: Vital Signs Temp 97.9 F 03/31/22 12:00 Pulse 71 03/31/22 12:00 Resp 18 03/31/22 12:00 BP 123/78 03/31/22 12:00 Pulse Ox 96 03/31/22 12:00 FiO2 30 03/31/22 07:36 Intake & Output 03/30/22 03/31/22 03/31/22 18:59 06:59 18:59 Output Total 250 300 Balance -250 -300 Weight 78.6 kg Output: Urine 250 300 Other: Voiding Method Bedside Commode Bedside Commode Bedside Commode Bedpan # Voids 1 1 # Bowel Movements 1 1 - Labs CBC & Chem 7: 03/31/22 07:58 03/31/22 07:58 Labs: Abnormal Lab Results - Last 24 Hours (Table) 03/30/22 03/30/22 03/31/22 Range/Units 16:30 21:09 06:52 Neutrophils # (1.3-7.7) k/uL Lymphocytes # (1.0-4.8) k/uL Carbon Dioxide (22-30) mmol/L BUN (7-17) mg/dL Glucose (74-99) mg/dL POC Glucose (mg/dL) 160 H 188 H 147 H (70-110) mg/dL Total Protein (6.3-8.2) g/dL Albumin (3.5-5.0) g/dL 03/31/22 03/31/22 03/31/22 Range/Units 07:58 07:58 12:26 Neutrophils # 8.5 H (1.3-7.7) k/uL Lymphocytes # 0.8 L (1.0-4.8) k/uL Carbon Dioxide 35 H (22-30) mmol/L BUN 31 H (7-17) mg/dL Glucose 156 H (74-99) mg/dL POC Glucose (mg/dL) 201 H (70-110) mg/dL Total Protein 5.6 L (6.3-8.2) g/dL Albumin 3.4 L (3.5-5.0) g/dL Microbiology - Last 24 Hours (Table) 03/24/22 10:37 Blood Culture - Final Blood No Growth after 144 hours 03/24/22 10:24 Blood Culture - Final Blood No Growth after 144 hours
[2022-03-31 16:26] LABS: Glucose,Whole Blood 171 mg/dL (70-110)
[2022-03-31 19:49] LABS: Glucose,Whole Blood 202 mg/dL (70-110)
[2022-04-01] MEDS: methylPREDNISolone SOD SUCCI 125 MG/2 ML VIAL IV SCH ×4 (00:21→17:07)
[2022-04-01 05:58] LABS: Glucose,Whole Blood 147 mg/dL (70-110)
[2022-04-01] MEDS: INSULIN ASPART (NovoLOG) 100 UNIT/ML VIAL SQ SCH ×4 (06:26→20:32)
[2022-04-01] MEDS: FAMOTIDINE 20 MG TAB PO SCH (09:03)
[2022-04-01] MEDS: NICOTINE 14MG/24HR PATCH TRANSDERM SCH (09:03)
[2022-04-01] MEDS: cloNIDine HCL 0.1 MG TAB PO SCH ×3 (09:03→20:32)
[2022-04-01] MEDS: NIFEdipine XL 90 MG TAB.ER.24 PO SCH (09:03)
[2022-04-01] MEDS: HEPARIN SODIUM,PORCINE/PF 5,000 UNIT/0.5 ML SYRINGE SQ SCH ×2 (09:03→20:32)
[2022-04-01] MEDS: LORATADINE 10 MG TAB PO SCH (09:03)
[2022-04-01] MEDS: METOPROLOL SUCCINATE (ER) 100 MG TAB.ER.24H PO SCH (09:03)
[2022-04-01] MEDS: hydrALAZINE HCL 25 MG TAB PO SCH ×2 (09:03→20:32)
[2022-04-01] MEDS: ALBUTEROL NEBULIZED 2.5 MG/3 ML INHALATION SCH ×4 (09:13→21:04)
[2022-04-01] MEDS: BUDESONIDE 1 MG/2 ML NEBU INHALATION SCH ×2 (09:13→21:04)
--- NOTE | 2022-04-01 10:28 | P.PN ---
Subjective Patient is seen in follow-up for [place]. GFR back to baseline. Currently on 2 L nasal cannula. Good urine output. Oral intake is good. No active complaints. Vital signs stable. No acute distress. On nasal cannula. Regular rate and rhythm Breath sounds decreased. No abdominal distention. No edema. Objective - Vital Signs Vital signs: Vital Signs Temp 98.0 F 04/01/22 08:00 Pulse 74 04/01/22 09:35 Resp 24 04/01/22 08:00 BP 150/83 04/01/22 08:00 Pulse Ox 98 04/01/22 09:15 FiO2 30 04/01/22 03:55 Intake & Output 03/31/22 04/01/22 04/01/22 18:59 06:59 18:59 Intake Total 300 120 Output Total 350 Balance -350 300 120 Weight 78.6 kg Intake: Oral 300 120 Output: Urine 350 Other: Voiding Method Bedside Commode Bedside Commode Bedside Commode # Voids 1 # Bowel Movements 1 1 1 - Labs CBC & Chem 7: 03/31/22 07:58 03/31/22 07:58 Labs: Abnormal Lab Results - Last 24 Hours (Table) 03/31/22 03/31/22 03/31/22 Range/Units 12:26 16:22 19:47 POC Glucose (mg/dL) 201 H 171 H 202 H (70-110) mg/dL 04/01/22 Range/Units 05:57 POC Glucose (mg/dL) 147 H (70-110) mg/dL Assessment and Plan Plan: Assessment: 1. Acute kidney injury, mostly pre-renal, improved with IVFs. GFR back to baseline - cr 0.97 yesterday. 2. 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 3. Hx of right nephrectomy. 4. COPD exacerbation. 5. HTN with CKD. Stable. Exacerbated by steroids. Plan: Encouraged po intake. Avoid nehrotoxins.
[2022-04-01 11:41] LABS: Glucose,Whole Blood 132 mg/dL (70-110)
--- NOTE | 2022-04-01 15:16 | P.PN ---
Subjective Progress Note Date: 04/01/22 This is a 66-year-old female who was recently admitted with COPD, acute exacerbation also hypoxic respiratory failure continues in the ICU and has been intermittently using BiPAP. Patient currently maintained on 3 L via nasal cannula with oxygen saturations of 98%. Patient's mentation is improved and currently sitting up in the chair. Patient with significant weakness will have physical therapy evaluate the patient. Recommend continue with IV steroids along with DuoNeb treatments and pulmonary following closely. Patient is a hold in the ICU awaiting a bed on a medical surgical floor. Will await physical therapy notes. Patient is afebrile denies chest pain or worsening shortness of breath. Patient is tolerating diet with no reports of nausea or vomiting noted. 04/01/2022 Patient is seen and evaluated in follow-up this morning continued on 2-3 L and continues to use BiPAP at night. Patient with weakness and will be working with physical therapy. Patient chronically wears 2-3 L at home although does not use BiPAP at night. Patient is maintained on IV steroids along with DuoNeb treatments and pulmonary continues to follow. Patient has been transferred out of the ICU and continued on telemetry monitoring. Patient is tolerating diet denying any nausea or vomiting. Patient is afebrile. Patient is agreeable to rehab and case management following and awaiting on family call back for choices of possible ECF which is being planned. Patient continues to be short of breath with minimal exertion and up and walking requiring more oxygen. Review of systems: Constitutional: No reports of fatigue, fever, or chills Cardiovascular: No reports of chest pain or palpitations Respiratory: No reports of worsening shortness of breath GI: no reports of nausea, no reports of of vomiting, or diarrhea : No reports of dysuria or retention Neurovascular: reports of generalized weakness All medications have been reviewed Active Medications Acetaminophen (Acetaminophen Tab 325 Mg Tab) 650 mg PO Q4HR PRN PRN Reason: Mild Pain or Fever > 100.5 Albuterol Sulfate (Albuterol Hfa Inhaler) 2 puff INHALATION RT-QID PRN PRN Reason: Shortness Of Breath Or Wheezing Albuterol Sulfate (Albuterol Nebulized 2.5 Mg/3 Ml) 2.5 mg INHALATION RT-QID [facility] Last Admin: 04/01/22 09:13 Dose: 2.5 mg Alprazolam (Alprazolam 0.5 Mg Tab) 0.5 mg PO BID PRN PRN Reason: Anxiety Last Admin: 03/30/22 08:38 Dose: 0.5 mg Budesonide (Budesonide 1 Mg/2 Ml Nebu) 1 mg INHALATION RT-BID [facility] Last Admin: 04/01/22 09:13 Dose: 1 mg Clonidine (Clonidine Hcl 0.1 Mg Tab) 0.3 mg PO TID [facility] Last Admin: 04/01/22 09:03 Dose: 0.3 mg Dextrose/Water (Dextrose 50% Syringe 50 Ml) 25 ml IVP PER PROTOCOL PRN; Protocol PRN Reason: Hypoglycemia Dextrose/Water (Dextrose 50% Syringe 50 Ml) 50 ml IVP PER PROTOCOL PRN; Protocol PRN Reason: Hypoglycemia Famotidine (Famotidine 20 Mg Tab) 20 mg PO DAILY [facility] Last Admin: 04/01/22 09:03 Dose: 20 mg Heparin Sodium (Porcine) (Heparin Sodium,Porcine/Pf 5,000 Unit/0.5 Ml Syringe) 5,000 unit SQ Q12HR [facility] Last Admin: 04/01/22 09:03 Dose: 5,000 unit Hydralazine HCl (Hydralazine Hcl 25 Mg Tab) 25 mg PO QID PRN PRN Reason: Blood Pressure - High Last Admin: 03/27/22 10:14 Dose: 25 mg Hydralazine HCl (Hydralazine Hcl 25 Mg Tab) 25 mg PO BID [facility] Last Admin: 04/01/22 09:03 Dose: 25 mg Insulin Aspart (Insulin Aspart (Novolog) 100 Unit/Ml Vial) 0 unit SQ ACHS [facility]; Protocol Last Admin: 04/01/22 06:26 Dose: Not Given Loratadine (Loratadine 10 Mg Tab) 10 mg PO DAILY [facility] Last Admin: 04/01/22 09:03 Dose: 10 mg Methylprednisolone Sodium Succinate (Methylprednisolone Sod Succi 125 Mg/2 Ml Vial) 60 mg IV Q6HR [facility] Last Admin: 04/01/22 06:26 Dose: 60 mg Metoprolol Succinate (Metoprolol Succinate (Er) 100 Mg Tab.Er.24h) 100 mg PO DAILY [facility] Last Admin: 04/01/22 09:03 Dose: 100 mg Naloxone HCl (Naloxone 0.4 Mg/Ml 1 Ml Vial) 0.2 mg IVP Q2M PRN PRN Reason: Opioid Reversal Nicotine (Nicotine 14mg/24hr Patch) 1 patch TRANSDERM DAILY [facility] Last Admin: 04/01/22 09:03 Dose: 1 patch Nifedipine (Nifedipine Xl 90 Mg Tab.Er.24) 90 mg PO DAILY [facility] Last Admin: 04/01/22 09:03 Dose: 90 mg PHYSICAL EXAMINATION: GENERAL: The patient is alert and oriented x3, Well developed, well nourished. HEENT: Pupils are round and equally reacting to light. EOMI. no scleral icterus. No conjunctival pallor. Normocephalic, atraumatic. No pharyngeal erythema. No thyromegaly. CARDIOVASCULAR: S1 and S2 muffled PULMONARY: diminished breath sounds bilaterally with scattered rhonchi with expiratory wheezing noted. ABDOMEN: soft. Nontender on exam. non-distended, normoactive bowel sounds. No palpable organomegaly. MUSCULOSKELETAL: No joint swelling or deformity. EXTREMITIES: No cyanosis, clubbing, or pedal edema. NEUROLOGICAL: Gross neurological examination did not reveal any focal deficits. Diffuse weakness SKIN: No rashes. Assessment: Chronic obstructive pulmonary disease with acute hypoxic respiratory failure, requiring BiPAP Acute on chronic hypoxic respiratory failure as patient wears 2 L via nasal cannula chronically. Acute kidney injury, likely prerenal, improved after IV hydration Chronic kidney disease stage II with history of right nephrectomy Hypertension History of depression Generalized weakness GI prophylaxis DVT prophylaxis Full code Plan: Recommend to continue with current medications and management with pulmonary following. Patient is currently out of the ICU and continues to use BiPAP at night and maintained on 2-3 L during the day.. Patient with significant weakness will have PT/OT follow the patient. Recommend rehab given patient's extensive dyspnea with minimal exertion and continued weakness. Case management consulted and following working on possible ECF. Patient is agreeable. Patient with significant improvement in mentation currently sitting up alert and oriented on 2-3 L via nasal cannula with oxygen saturations of 98%. Patient will continue on IV steroids and recommend Accu-Cheks before meals and at bedtime and sliding scale. Encouraged to increase activity as tolerated along with encouraging oral intake. Kidney functions improving and current creatinine is 0.97. Due to multiple convex medical issues, prognosis is guarded. Possible discharge in 24-48 hours. The impression and plan of care has been dictated by Ellen Hart, nurse practitioner as directed. Dr. Hans BECERRA I have performed a history and examination and MDM of this patient, discussed the same with the dictator, and agree with the dictator's assessment and plan as written ,documented as a scribe. Based on total visit time, I have performed more than 50% of the visit. Any additional findings or plans will be noted. Objective - Vital Signs Vital signs: Vital Signs Temp 98.0 F 04/01/22 08:00 Pulse 74 04/01/22 09:35 Resp 24 04/01/22 08:00 BP 150/83 04/01/22 08:00 Pulse Ox 98 04/01/22 09:15 FiO2 30 04/01/22 03:55 Intake & Output 03/31/22 04/01/22 04/01/22 18:59 06:59 18:59 Intake Total 300 120 Output Total 350 Balance -350 300 120 Weight 78.6 kg Intake: Oral 300 120 Output: Urine 350 Other: Voiding Method Bedside Commode Bedside Commode Bedside Commode # Voids 1 # Bowel Movements 1 1 1 - Labs CBC & Chem 7: 03/31/22 07:58 03/31/22 07:58 Labs: Abnormal Lab Results - Last 24 Hours (Table) 03/31/22 03/31/22 03/31/22 Range/Units 12:26 16:22 19:47 POC Glucose (mg/dL) 201 H 171 H 202 H (70-110) mg/dL 04/01/22 Range/Units 05:57 POC Glucose (mg/dL) 147 H (70-110) mg/dL
--- NOTE | 2022-04-01 15:32 | P.PN ---
Subjective Progress Note Date: 04/01/22 On 03/31/2022, seeing the patient for a follow-up. This morning, the patient is resting comfortably in bed. He is on oxygen at 3 L nasal cannula. Note that she got transferred to our intensive. She is in for an an acute COPD exacerbation and the patient gradually improved. He was on BiPAP for few days. Otherwise, she is comparable. She is communicating. She is in sinus. Her pulse ox is 99%. Hemodynamically stable. As far as the blood work, the patient has a white cell count 9.9 with a hemoglobin 13.6, electrolytes are normal, renal function is normal. Blood cultures have been negative. Covid 19 testing has been negative and influenza screen has been negative and RSV screen has also bee n negative. On today's evaluation of 04/01/2022, the patient is being seen for a follow-up. She remains on 3 L of Oxymizer nasal cannula. She is gradually improving and she is less short of breath compared to yesterday. Noted the patient remains on IV Solu-Medrol 60 mg every 6 hours. She remains on DuoNeb about treatments [id number] and she is also on a combination of performance on Pulmicort neb nebulized treatments twice a day. No chest pain. No altered mentation. No hemodynamic instability. No steroid psychosis. The patient's blood work from yesterday was noted. No follow-up blood work from today. Blood cultures been negative. Influenza screen has been negative. Covid 19 testing is been negative. Objective - Vital Signs Vital signs: Vital Signs Temp 97.8 F 04/01/22 03:39 Pulse 74 04/01/22 09:35 Resp 18 04/01/22 03:39 BP 143/81 04/01/22 03:39 Pulse Ox 98 04/01/22 09:15 FiO2 30 04/01/22 03:55 Intake & Output 03/31/22 04/01/22 04/01/22 18:59 06:59 18:59 Intake Total 300 120 Output Total 350 Balance -350 300 120 Weight 78.6 kg Intake: Oral 300 120 Output: Urine 350 Other: Voiding Method Bedside Commode Bedside Commode # Voids 1 # Bowel Movements 1 1 1 - Exam No acute distress, oriented 3. Currently on 3 L of oxygen. No audible wheezing or use of accessory muscles. HEENT examination is grossly unremarkable. Neck supple. Full range of motion. No adenopathy thyromegaly or neck vein distention. Cardiovascular examination reveals regular rhythm rate. S1-S2 normal. No S3 or S4. No discernible murmur noted. Heart sounds are distant, with a heart rate o f 75 bpm. Lungs reveal bilateral expiratory wheezes and rhonchi. Breath sounds equal bilaterally. No crackles. There is prolongation on forced maneuver. Adventitious lung sounds are more prominent on forced maneuver. Abdomen soft bowel sounds are heard. No masses or tenderness. Extremities are intact. No cyanosis clubbing or edema. Skin is without rash or lesion. Neurologic examination is brief but nonfocal. - Labs CBC & Chem 7: 03/31/22 07:58 03/31/22 07:58 Labs: Abnormal Lab Results - Last 24 Hours (Table) 03/31/22 03/31/22 03/31/22 Range/Units 12:26 16:22 19:47 POC Glucose (mg/dL) 201 H 171 H 202 H (70-110) mg/dL 04/01/22 Range/Units 05:57 POC Glucose (mg/dL) 147 H (70-110) mg/dL Assessment and Plan Plan: Acute hypercapnic respiratory failure secondary to an acute exacerbation of chronic obstructive pulmonary disease requiring BiPAP support, rapid response team required on 03/25/2022 and was transferred to the ICU. Clinically improved and the patient is currently on oxygen at 3 L/m nasal cannula. The patient is off the BiPAP. The patient is clinically improving. No other new complaints for today's evaluation. She remains on bronchodilators and systemic steroids. Acute exacerbation of chronic obstructive pulmonary disease. Acute on chronic hypoxemic respiratory failure secondary to above. Chronic and ongoing tobacco dependence of 50 years. History of hypertension. History of depression. Plan: Clinically improving and a chest x-ray showed no evidence of any pneumonia, this is a chest x-ray that was done on 03/30/2022 Plan chest x-ray was reviewed from today. There is some scoliosis, hyperinflation without any acute abnormalities. No airspace disease or pulmonary infiltrates. Keep oxygen at 3 L Wean down FiO2 as tolerated Continue bronchodilators and continued IV Solu-Medrol 60 mg every 6 hours, without tapering steroids as of tomorrow Nicotine patch We'll continue to follow
[2022-04-01 16:20] LABS: Glucose,Whole Blood 185 mg/dL (70-110)
[2022-04-01 19:35] LABS: Glucose,Whole Blood 194 mg/dL (70-110)
[2022-04-02] MEDS: methylPREDNISolone SOD SUCCI 125 MG/2 ML VIAL IV SCH ×3 (00:46→12:12)
[2022-04-02 06:11] LABS: Glucose,Whole Blood 152 mg/dL (70-110)
[2022-04-02] MEDS: INSULIN ASPART (NovoLOG) 100 UNIT/ML VIAL SQ SCH ×2 (06:25→12:11)
--- NOTE | 2022-04-02 07:13 | XR ---
EXAMINATION TYPE: XR chest 1V portable DATE OF EXAM: 04/02/2022 HISTORY: Shortness of breath. COMPARISON: 03/30/2022 TECHNIQUE: Single view of the chest is submitted. FINDINGS: Demonstrated are scattered senescent parenchymal change. Increasing opacity right midlung zone may reflect atelectasis and/or infiltrate. Continued follow-up advised. The heart is stable. Hilar and mediastinal structures are within normal limits. Degenerative changes are seen of the dorsal spine. IMPRESSION: 1. Increasing opacity right midlung zone may reflect atelectasis and/or infiltrate. Continued follow -up advised.
[2022-04-02] MEDS: NICOTINE 14MG/24HR PATCH TRANSDERM SCH (08:23)
[2022-04-02] MEDS: LORATADINE 10 MG TAB PO SCH (08:23)
[2022-04-02] MEDS: HEPARIN SODIUM,PORCINE/PF 5,000 UNIT/0.5 ML SYRINGE SQ SCH (08:23)
[2022-04-02] MEDS: cloNIDine HCL 0.1 MG TAB PO SCH (08:23)
[2022-04-02] MEDS: NIFEdipine XL 90 MG TAB.ER.24 PO SCH (08:23)
[2022-04-02] MEDS: hydrALAZINE HCL 25 MG TAB PO SCH (08:23)
[2022-04-02] MEDS: METOPROLOL SUCCINATE (ER) 100 MG TAB.ER.24H PO SCH (08:23)
[2022-04-02] MEDS: FAMOTIDINE 20 MG TAB PO SCH (08:23)
[2022-04-02 08:30] VITALS: TEMP 98
[2022-04-02] MEDS: BUDESONIDE 1 MG/2 ML NEBU INHALATION SCH (09:08)
[2022-04-02] MEDS: ALBUTEROL NEBULIZED 2.5 MG/3 ML INHALATION SCH ×2 (09:08→12:31)
[2022-04-02 09:12] LABS: Calcium 8.8 mg/dL (8.4-10.2); Magnesium 2.2 mg/dL (1.6-2.3); Potassium 4.8 mmol/L (3.5-5.1)
--- NOTE | 2022-04-02 10:32 | P.PN ---
Subjective Patient is seen in follow-up for [place]. GFR back to baseline. Currently on 2 L nasal cannula. Good urine output. Oral intake is good. No active complaints. Feels sleepy. Vital signs stable. No acute distress. On nasal cannula. Regular rate and rhythm Breath sounds decreased. No abdominal distention. No edema. Objective - Vital Signs Vital signs: Vital Signs Temp 98.0 F 04/02/22 08:28 Pulse 84 04/02/22 09:27 Resp 22 04/02/22 08:30 BP 158/86 04/02/22 08:28 Pulse Ox 97 04/02/22 08:28 FiO2 30 04/02/22 03:27 Intake & Output 04/01/22 04/02/22 04/02/22 18:59 06:59 18:59 Intake Total 360 Balance 360 Intake: Oral 360 Other: Voiding Method Bedside Commode Bedside Commode Toilet # Voids 2 2 1 # Bowel Movements 1 1 - Labs CBC & Chem 7: 03/31/22 07:58 04/02/22 07:45 Labs: Abnormal Lab Results - Last 24 Hours (Table) 04/01/22 04/01/22 04/01/22 Range/Units 11:39 16:19 19:32 Sodium (137-145) mmol/L Chloride (98-107) mmol/L Carbon Dioxide (22-30) mmol/L BUN (7-17) mg/dL Glucose (74-99) mg/dL POC Glucose (mg/dL) 132 H 185 H 194 H (70-110) mg/dL 04/02/22 04/02/22 Range/Units 06:10 07:45 Sodium 134 L (137-145) mmol/L Chloride 93 L (98-107) mmol/L Carbon Dioxide 35 H (22-30) mmol/L BUN 30 H (7-17) mg/dL Glucose 183 H (74-99) mg/dL POC Glucose (mg/dL) 152 H (70-110) mg/dL Assessment and Plan Plan: Assessment: 1. Acute kidney injury, mostly pre-renal, improved with IVFs. GFR back to baseline - cr 0.92. 2. 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 3. Hx of right nephrectomy. 4. COPD exacerbation. 5. HTN with CKD. Stable. Exacerbated by steroids. Stable. Plan: Encouraged po intake. Avoid nehrotoxins. Follow-up outpatient 1-2 weeks post discharge.
[2022-04-02 11:56] LABS: Glucose,Whole Blood 199 mg/dL (70-110)
[2022-04-02 12:53] VITALS: BP 136/73; PULSE 75; RESP 20
--- NOTE | 2022-04-02 13:14 | P.DS ---
Providers Date of admission: 03/24/22 13:45 Expected date of discharge: 04/02/22 Attending physician: Chaka Donnelly MD Consults: 03/25/22 10:52 Consult Physician Urgent Consulting Provider: Felix Hurt Consult Reason/Comments: copd Do you want consulting provider notified?: Yes 03/25/22 10:53 Consult Physician Urgent Consulting Provider: Stella Pablo Consult Reason/Comments: jim Do you want consulting provider notified?: Yes Primary care physician: Physician Nonstaff Hospital Course: Final diagnosis Chronic obstructive pulmonary disease with acute hypoxic respiratory failure, requiring BiPAP Acute on chronic hypoxic respiratory failure as patient wears 2 L via nasal cannula chronically. Acute kidney injury, likely prerenal, improved after IV hydration, improved Chronic kidney disease stage II with history of right nephrectomy Hypertension History of depression Generalized weakness GI prophylaxis DVT prophylaxis Full code Discharge disposition Patient is being discharged in a stable condition with guarded prognosis to [facility] for continued PT/OT therapy.. Patient will follow-up with Dr. Merida in the outpatient setting upon discharge. Patient is to continue on prednisone taper along with breathing inhalational treatments and 3 L of oxygen via nasal cannula. Patient to use BiPAP at night with settings as mentioned below. Patient will need follow-up with pulmonary in the outpatient setting. Total time taken is greater than 35 minutes. Hospital course This is a 64-year-old male who was recently admitted with COPD exacerbation re quiring I high oxygen demands and BiPAP. Patient has improved and has been treated adequately with antibiotics and is continued on IV steroids and we'll transition to oral prednisone taper and also recommend to continue DuoNeb treatments and close outpatient follow-up with pulmonary in the next 1-2 weeks. Patient chronically wears 2-3 L at home she reports and will continue with BiPAP at night as well. Patient with significant weakness agreeable to rehab and [facility] has accepted the patient. She has been cleared by consultations for close outpatient follow-up. Currently no reports of chest pain, worsening shortness of breath, or palpitations. Patient is afebrile. No reports of nausea or vomiting and patient is tolerating diet. Patient will be going to [facility] today. Guarded prognosis. Physical exam: Gen: This is a 66-year-old female awake, alert and oriented 3, thin built, elderly appearing female HEENT: Head is atraumatic, normocephalic. Pupils equal, round. Sclerae is anicteric. NECK: Supple. No JVD. No lymphadenopathy. No thyromegaly. LUNGS: Diminished breath sounds bilaterally with some scattered rhonchi and mild expiratory wheezing noted. No intercostal retractions. HEART: Regular rate and rhythm. No murmur. ABDOMEN: Soft. Bowel sounds are present. No masses. No tenderness. EXTREMITIES: No pedal edema. No calf tenderness. NEUROLOGICAL: Patient is awake, alert and oriented x3. Cranial nerves 2 through 12 are grossly intact. Diffusely weak Please refer to medication reconciliation sheet for a list of medications. The impression and plan of care has been dictated by Ellen Hart, Nurse Practitioner as directed. Dr. Hans MD I have performed a history and examination and MDM of this patient, discussed the same with the dictator, and agree with the dictator's assessment and plan as written ,documented as a scribe. Based on total visit time, I have performed more than 50% of the visit. Patient Condition at Discharge: Fair Plan - Discharge Summary Discharge Rx Participant: No New Discharge Prescriptions: New hydrALAZINE HCL [Apresoline] 25 mg PO BID tab Loratadine [Claritin] 10 mg PO DAILY tab Nicotine 14Mg/24Hr Patch [Habitrol] 1 patch TRANSDERM DAILY patch Heparin Sodium,Porcine [Heparin Sodium] 5,000 unit SQ Q12HR 30 Days #60 each predniSONE 10 mg PO DIRECTED #30 tab Albuterol Inhaler [Ventolin Hfa Inhaler] 2 puff INHALATION RT-QID PRN each PRN Reason: Shortness Of Breath Or Wheezing Albuterol Nebulized [Ventolin Nebulized] 2.5 mg INHALATION RT-QID ml INSULIN ASPART (NovoLOG) [NovoLOG (formulary)] 0 unit SQ ACHS each Famotidine [Pepcid] 20 mg PO DAILY tab Budesonide [Pulmicort] 1 mg INHALATION RT-BID ml Acetaminophen Tab [Tylenol] 650 mg PO Q4HR PRN tab PRN Reason: Mild Pain Or Fever > 100.5 ALPRAZolam [Xanax] 0.5 mg PO BID PRN #2 tab PRN Reason: Anxiety hydrALAZINE HCL [Apresoline] 25 mg PO QID PRN #30 tab PRN Reason: Hypertension Continue cloNIDine HCL [Catapres] 0.3 mg PO TID NIFEdipine [Procardia XL] 90 mg PO DAILY Metoprolol Succinate [Toprol XL] 100 mg PO DAILY Discharge Medication List Metoprolol Succinate [Toprol XL] 100 mg PO DAILY 03/24/22 [History] NIFEdipine [Procardia XL] 90 mg PO DAILY 03/24/22 [History] cloNIDine HCL [Catapres] 0.3 mg PO TID 03/24/22 [History] ALPRAZolam [Xanax] 0.5 mg PO BID PRN #2 tab 04/02/22 [Rx] Acetaminophen Tab [Tylenol] 650 mg PO Q4HR PRN tab 04/02/22 [Rx] Albuterol Inhaler [Ventolin Hfa Inhaler] 2 puff INHALATION RT-QID PRN each 04/02/22 [Rx] Albuterol Nebulized [Ventolin Nebulized] 2.5 mg INHALATION RT-QID ml 04/02/22 [ Rx] Budesonide [Pulmicort] 1 mg INHALATION RT-BID ml 04/02/22 [Rx] Famotidine [Pepcid] 20 mg PO DAILY tab 04/02/22 [Rx] Heparin Sodium,Porcine [Heparin Sodium] 5,000 unit SQ Q12HR 30 Days #60 each 1 06/02/21 [Rx] INSULIN ASPART (NovoLOG) [NovoLOG (formulary)] 0 unit SQ ACHS each 04/02/22 [Rx] Loratadine [Claritin] 10 mg PO DAILY tab 04/02/22 [Rx] Nicotine 14Mg/24Hr Patch [Habitrol] 1 patch TRANSDERM DAILY patch 04/02/22 [Rx] hydrALAZINE HCL [Apresoline] 25 mg PO BID tab 04/02/22 [Rx] hydrALAZINE HCL [Apresoline] 25 mg PO QID PRN #30 tab 04/02/22 [Rx] predniSONE 10 mg PO DIRECTED #30 tab 04/02/22 [Rx] Follow up Appointment(s)/Referral(s): Felix Hurt DO [Doctor of Osteopathic Medicine] - 1 Week Loc Merida MD [STAFF PHYSICIAN] - 1 Week Activity/Diet/Wound Care/Special Instructions: Continue bipap 14/ at hs at rehab She is going to [employer] [facility] as tolerated Continue current diet Continue prednisone taper Continue DuoNeb treatments along with as needed and scheduled Pulmonary outpatient Follow-up primary care provider on discharge Discharge Disposition: TRANSFER TO SNF/ECF
--- NOTE | 2022-04-02 16:52 | P.PN ---
Subjective Progress Note Date: 04/02/22 On 03/31/2022, seeing the patient for a follow-up. This morning, the patient is resting comfortably in bed. He is on oxygen at 3 L nasal cannula. Note that she got transferred to our intensive. She is in for an an acute COPD exacerbation and the patient gradually improved. He was on BiPAP for few days. Otherwise, she is comparable. She is communicating. She is in sinus. Her pulse ox is 99%. Hemodynamically stable. As far as the blood work, the patient has a white cell count 9.9 with a hemoglobin 13.6, electrolytes are normal, renal function is normal. Blood cultures have been negative. Covid 19 testing has been negative and influenza screen has been negative and RSV screen has also bee n negative. On today's evaluation of 04/01/2022, the patient is being seen for a follow-up. She remains on 3 L of Oxymizer nasal cannula. She is gradually improving and she is less short of breath compared to yesterday. Noted the patient remains on IV Solu-Medrol 60 mg every 6 hours. She remains on DuoNeb about treatments [id number] and she is also on a combination of performance on Pulmicort neb nebulized treatments twice a day. No chest pain. No altered mentation. No hemodynamic instability. No steroid psychosis. The patient's blood work from yesterday was noted. No follow-up blood work from today. Blood cultures been negative. Influenza screen has been negative. Covid 19 testing is been negative. On 04/02/2022, the patient is stable. She is resting comfortably in bed. There is a possibility the patient may be able to go to [facility] today. She was in the intensive care unit for an acute COPD exacerbation. She was released from the intensive care and approximately 2 days ago and the patient is still on DuoNeb about treatments [id number] and IV Solu-Medrol. We are going to start prednisone burst taper. The condition is stable. No signs of any CO2 narcosis. No angina. No palpitation. No chest pain. Objective - Vital Signs Vital signs: Vital Signs Temp 98.0 F 04/02/22 08:28 Pulse 84 04/02/22 09:27 Resp 22 04/02/22 08:30 BP 158/86 04/02/22 08:28 Pulse Ox 97 04/02/22 08:28 FiO2 30 04/02/22 03:27 Intake & Output 04/01/22 04/02/22 04/02/22 18:59 06:59 18:59 Intake Total 360 Balance 360 Intake: Oral 360 Other: Voiding Method Bedside Commode Bedside Commode Toilet # Voids 2 2 1 # Bowel Movements 1 1 - Exam No acute distress, oriented 3. Currently on 3 L of oxygen. No audible wheezing or use of accessory muscles. HEENT examination is grossly unremarkable. Neck supple. Full range of motion. No adenopathy thyromegaly or neck vein distention. Cardiovascular examination reveals regular rhythm rate. S1-S2 normal. No S3 or S4. No discernible murmur noted. Heart sounds are distant, with a heart rate of 75 bpm. Lungs reveal bilateral expiratory wheezes and rhonchi. Breath sounds equal bilaterally. No crackles. There is prolongation on forced maneuver. Adventitious lung sounds are more prominent on forced maneuver. Abdomen soft bowel sounds are heard. No masses or tenderness. Extremities are intact. No cyanosis clubbing or edema. Skin is without rash or lesion. Neurologic examination is brief but nonfocal. - Labs CBC & Chem 7: 03/31/22 07:58 04/02/22 07:45 Labs: Abnormal Lab Results - Last 24 Hours (Table) 04/01/22 04/01/22 04/01/22 Range/Units 11:39 16:19 19:32 Sodium (137-145) mmol/L Chloride (98-107) mmol/L Carbon Dioxide (22-30) mmol/L BUN (7-17) mg/dL Glucose (74-99) mg/dL POC Glucose (mg/dL) 132 H 185 H 194 H (70-110) mg/dL 04/02/22 04/02/22 Range/Units 06:10 07:45 Sodium 134 L (137-145) mmol/L Chloride 93 L (98-107) mmol/L Carbon Dioxide 35 H (22-30) mmol/L BUN 30 H (7-17) mg/dL Glucose 183 H (74-99) mg/dL POC Glucose (mg/dL) 152 H (70-110) mg/dL Assessment and Plan Plan: Acute hypercapnic respiratory failure secondary to an acute exacerbation of chronic obstructive pulmonary disease requiring BiPAP support, rapid response team required on 03/25/2022 and was transferred to the ICU. Clinically improved and the patient is currently on oxygen at 3 L/m nasal cannula. The patient is off the BiPAP. The patient is clinically improving. No other new complaints for today's evaluation. She remains on bronchodilators and systemic steroids. Acute exacerbation of chronic obstructive pulmonary disease. Acute on chronic hypoxemic respiratory failure secondary to above. Chronic and ongoing tobacco dependence of 50 years. History of hypertension. History of depression. Plan: Patient is improving from her acute choked exacerbation. The patient is stable and the patient is stable for discharge and she is going to [facility] for further PTOT evaluation and treatment. The patient was discharged on a prednisone burst taper and she will be offered also distant approximately [id number]. Smoking cessation counseling was done. Home medications are to be organized by the medical team. The patient is free for discharge from my standpoint and we will be glad to see her in the office upon discharge.
== END 2022-04-02 15:17 | DRG 189 ==
LOC: EC 09:55 → 4SSUR 13:45 → 2SICU 03-25 23:25 → 3SCARD 03-31 15:42
PROVIDERS: ADMIT Internal Medicine; ATTEND Internal Medicine
PROC: 5A09357 Assistance with Respiratory Ventilation, Less than 24 Consecutive Hours, Continuous Positive Airway Pressure (ICD-10-PCS; principal; 2022-03-25)
DX: J96.02 Acute respiratory failure with hypercapnia (principal); J44.1 Chronic obstructive pulmonary disease with (acute) exacerbation; J98.11 Atelectasis; N17.9 Acute kidney failure, unspecified; J96.21 Acute and chronic respiratory failure with hypoxia; F17.210 Nicotine dependence, cigarettes, uncomplicated; B35.9 Dermatophytosis, unspecified; F32.A Depression, unspecified; I12.9 Hypertensive chronic kidney disease with stage 1 through stage 4 chronic kidney disease, or unspecified chronic kidney disease; I49.3 Ventricular premature depolarization; N18.2 Chronic kidney disease, stage 2 (mild); T38.0X5A Adverse effect of glucocorticoids and synthetic analogues, initial encounter; Z79.52 Long term (current) use of systemic steroids; Z79.899 Other long term (current) drug therapy; Z90.5 Acquired absence of kidney; D71 Functional disorders of polymorphonuclear neutrophils; Z99.81 Dependence on supplemental oxygen; Z20.822 Contact with and (suspected) exposure to COVID-19; Z28.310 Unvaccinated for COVID-19; Z28.21 Immunization not carried out because of patient refusal
CPT/HCPCS: 36415; 36600; 71045; 71046; 71275; 76770; 80048; 80053; 81001; 82805; 83036; 83605; 83735; 83880; 84145; 84484; 85025; 85027; 85379; 85610; 85730; 87040; 87635; 87636; 93005; 94640; 94660; 94760; 96365; 99285

== ENCOUNTER 2022-06-10 08:05 | Inpatient (IN) | payer MEDICARE, OTHER ==
--- NOTE | 2022-06-10 08:18 | ED ---
General Adult HPI - General Chief complaint: Syncope Stated complaint: syncope Time Seen by Provider: 06/10/22 08:06 Source: patient, EMS, RN notes reviewed Mode of arrival: EMS Limitations: no limitations - History of Present Illness Initial comments: Patient is a pleasant 66-year-old female presenting to emergency department for syncopal episode. Patient woke up this morning. Patient did feel dizzy and passed out. Patient does not recall the episode. Patient states she feels fine at this time and has no complaints. No history of similar symptoms previously. Patient denies injury. No chest or back pain. No abdominal pain. No weakness. No confusion. No speech problem. - Related Data Home Medications Medication Instructions Recorded Confirmed Metoprolol Succinate [Toprol XL] 100 mg PO DAILY 03/24/22 03/24/22 NIFEdipine [Procardia XL] 90 mg PO DAILY 03/24/22 03/24/22 cloNIDine HCL [Catapres] 0.3 mg PO TID 03/24/22 03/24/22 Previous Rx's Medication Instructions Recorded ALPRAZolam [Xanax] 0.5 mg PO BID PRN #2 tab 04/02/22 Acetaminophen Tab [Tylenol] 650 mg PO Q4HR PRN tab 04/02/22 Albuterol Inhaler [Ventolin Hfa 2 puff INHALATION RT-QID PRN each 04/02/22 Inhaler] Albuterol Nebulized [Ventolin 2.5 mg INHALATION RT-QID ml 04/02/22 Nebulized] Budesonide [Pulmicort] 1 mg INHALATION RT-BID ml 04/02/22 Famotidine [Pepcid] 20 mg PO DAILY tab 04/02/22 Heparin Sodium,Porcine [Heparin 5,000 unit SQ Q12HR 30 Days #60 04/02/22 Sodium] each INSULIN ASPART (NovoLOG) [NovoLOG 0 unit SQ ACHS each 04/02/22 (formulary)] Loratadine [Claritin] 10 mg PO DAILY tab 04/02/22 Nicotine 14Mg/24Hr Patch [Habitrol] 1 patch TRANSDERM DAILY patch 04/02/22 hydrALAZINE HCL [Apresoline] 25 mg PO BID tab 04/02/22 hydrALAZINE HCL [Apresoline] 25 mg PO QID PRN #30 tab 04/02/22 predniSONE 10 mg PO DIRECTED #30 tab 04/02/22 Allergies Allergy/AdvReac Type Severity Reaction Status Date / Time No Known Allergies Allergy Verified 06/10/22 08:10 Review of Systems ROS Statement: Those systems with pertinent positive or pertinent negative responses have been documented in the HPI. ROS Other: All systems not noted in ROS Statement are negative. Constitutional: Denies: fever Eyes: Denies: eye pain ENT: Denies: throat pain Respiratory: Denies: cough Cardiovascular: Denies: chest pain Endocrine: Denies: fatigue Gastrointestinal: Denies: abdominal pain Neurological: Reports: as per HPI. Denies: headache, weakness, confusion Past Medical History Past Medical History: COPD, Hypertension, Renal Disease History of Any Multi-Drug Resistant Organisms: None Reported Past Surgical History: Cholecystectomy Additional Past Surgical History / Comment(s): Right kidney removed Past Anesthesia/Blood Transfusion Reactions: No Reported Reaction Past Psychological History: Depression Smoking Status: Former smoker Past Alcohol Use History: None Reported Past Drug Use History: None Reported General Exam Limitations: no limitations General appearance: alert, in no apparent distress Head exam: Present: normocephalic Eye exam: Present: normal appearance, PERRL, EOMI Neck exam: Present: normal inspection. Absent: tenderness Respiratory exam: Present: normal lung sounds bilaterally Cardiovascular Exam: Present: regular rate, normal rhythm Expanded Peripheral pulses: 2+: Radial (R), Radial (L), Posterior Tibialis (R), Posterior Tibialis (L) GI/Abdominal exam: Present: soft. Absent: tenderness Extremities exam: Present: normal inspection. Absent: pedal edema, calf tenderness Neurological exam: Present: alert, oriented X3, CN II-XII intact. Absent: motor sensory deficit Expanded Neurological exam: Present: protecting the airway Cranial nerves: EOM's Intact: Normal Sensory exam: Upper Extremity Light Touch: Normal, Lower Extremity Light Touch: Normal Motor strength exam: RUE: 5, LUE: 5, RLE: 5, LLE: 5 Eye Response: (4) open spontaneously Motor Response: (6) obeys commands Verbal Response: (5) oriented Psychiatric exam: Present: normal affect, normal mood Skin exam: Present: normal color Course Vital Signs 06/10/22 08:06 Temperature 98.7 F Pulse Rate 85 Respiratory 18 Rate Blood Pressure 108/81 O2 Sat by Pulse 95 Oximetry EKG Findings - EKG Results: EKG: interpreted by ERMD (LVH criteria. Lateral T wave inversion. Inferior T wave inversion.), sinus rhythm, normal axis Medical Decision Making - Medical Decision Making Was pt. sent in by a medical professional or institution (KARTHIK Meneses, ASSORTER, urgent care, hospital, or skilled nursing...) When possible be specific @ -No Did you speak to anyone other than the patient for history (EMS, parent, family, police, friend...)? What history was obtained from this source @ -No Did you review nursing and triage notes (agree or disagree)? Why? @ -I reviewed and agree with nursing and triage notes Were old charts reviewed (outside hosp., previous admission, EMS record, old EKG, old radiological studies, urgent care reports/EKG's, skilled nursing records)? Report findings @ -No old charts were reviewed Differential Diagnosis (chest pain, altered mental status, abdominal pain women, abdominal pain men, vaginal bleeding, weakness, fever, dyspnea, syncope, headache, dizziness, GI bleed, back pain, seizure, CVA, palpatations, mental health)? @ -Differential Syncope: Valvular disease, hypertrophic cardiomyopathy, pulmonary embolism, tamponade, tachycardia, bradycardia, AR, hypovolemia, hemorrhage, dissection, anemia, intracranial hemorrhage, seizure, hypoglycemia, carbon monoxide poisoning, this is not meant to be an all-inclusive list. EKG interpreted by me (3pts min.). @ -As above X-rays interpreted by me (1pt min.). @ -2 view chest x-ray shows no acute process. Rotated exam. CT interpreted by me (1pt min.). @ -Report reviewed U/S interpreted by me (1pt. min.). @ -None done What testing was considered but not performed or refused? (CT, X-rays, U/S, labs)? Why? @ -DT chest ordered however department will not do secondary to GFR. I will order VQ scan What meds were considered but not given or refused? Why? @ -None Did you discuss the management of the patient with other professionals (professionals i.e. KARTHIK Meneses, ASSORTER, lab, RT, psych nurse, social services director, media center director school, t eacher, correctional probation officer, piano case and bench assembler)? Give summary @ -Case discussed with Dr. Casas, who will admit covering hospital call. Was smoking cessation discussed for >3mins.? @ -No Was critical care preformed (if so, how long)? @ -No Were there social determinants of health that impacted care today? How? (Homelessness, low income, unemployed, alcoholism, drug addiction, transportation, low edu. Level, literacy, decrease access to med. care, [facility], rehab)? @ -No Was there de-escalation of care discussed even if they declined (Discuss DNR or withdrawal of care, Hospice)? DNR status @ -No What co-morbidities impacted this encounter? (DM, HTN, Smoking, COPD, CAD, Cancer, CVA, ARF, Chemo, Hep., AIDS, mental health diagnosis, sleep apnea, morbid obesity)? @ -None Was patient admitted / discharged? Hospital course, mention meds given and route, prescriptions, significant lab abnormalities, going to OR and other pertinent info. @ -Patient reevaluated. Patient and family updated. Patient will be admitted for further syncope evaluation. Undiagnosed new problem with uncertain prognosis? @ -No Drug Therapy requiring intensive monitoring for toxicity (Heparin, Nitro, Insulin, Cardizem)? @ -No Were any procedures done? @ -No Diagnosis/symptom? @ -Acute syncope Acute, or Chronic, or Acute on Chronic? @ -Acute Uncomplicated (without systemic symptoms) or Complicated (systemic symptoms)? @ -default Side effects of treatment? @ -No Exacerbation, Progression, or Severe Exacerbation? @ -No Poses a threat to life or bodily function? How? (Chest pain, USA, AR, pneumonia, PE, COPD, DKA, ARF, appy, cholecystitis, CVA, Diverticulitis, Homicidal, Suicidal, threat to staff... and all critical care pts) @ -Potential threat to life secondary to unknown reason of syncope at this time - Lab Data Result diagrams: 06/10/22 08:10 06/10/22 08:10 Lab Results 06/10/22 06/10/22 06/10/22 Range/Units 08:10 08:10 08:10 WBC 6.4 (3.8-10.6) k/uL RBC 4.58 (3.80-5.40) m/uL Hgb 13.0 (11.4-16.0) gm/dL Hct 38.9 (34.0-46.0) % MCV 84.9 (80.0-100.0) fL MCH 28.3 (25.0-35.0) pg MCHC 33.3 (31.0-37.0) g/dL RDW 13.8 (11.5-15.5) % Plt Count 241 (150-450) k/uL MPV 9.5 Neutrophils % 36 % Lymphocytes % 51 % Monocytes % 8 % Eosinophils % 1 % Basophils % 1 % Neutrophils # 2.3 (1.3-7.7) k/uL Lymphocytes # 3.3 (1.0-4.8) k/uL Monocytes # 0.5 (0-1.0) k/uL Eosinophils # 0.1 (0-0.7) k/uL Basophils # 0.1 (0-0.2) k/uL PT 11.1 (9.0-12.0) sec INR 1.1 (<1.2) APTT 25.3 (22.0-30.0) sec D-Dimer 1.95 H (<0.60) mg/L FEU Sodium 134 L (137-145) mmol/L Potassium 3.3 L (3.5-5.1) mmol/L Chloride 97 L (98-107) mmol/L Carbon Dioxide 29 (22-30) mmol/L Anion Gap 8 mmol/L BUN 18 H (7-17) mg/dL Creatinine 1.42 H (0.52-1.04) mg/dL Est GFR (CKD-EPI)AfAm 45 (>60 ml/min/1.73 sqM) Est GFR (CKD-EPI)NonAf 39 (>60 ml/min/1.73 sqM) Glucose 160 H (74-99) mg/dL Calcium 9.6 (8.4-10.2) mg/dL Magnesium 1.5 L (1.6-2.3) mg/dL Total Bilirubin 0.5 (0.2-1.3) mg/dL AST 19 (14-36) U/L ALT 17 (4-34) U/L Alkaline Phosphatase 69 (38-126) U/L Troponin I (0.000-0.034) ng/mL Total Protein 6.8 (6.3-8.2) g/dL Albumin 4.2 (3.5-5.0) g/dL 06/10/22 Range/Units 08:10 WBC (3.8-10.6) k/uL RBC (3.80-5.40) m/uL Hgb (11.4-16.0) gm/dL Hct (34.0-46.0) % MCV (80.0-100.0) fL MCH (25.0-35.0) pg MCHC (31.0-37.0) g/dL RDW (11.5-15.5) % Plt Count (150-450) k/uL MPV Neutrophils % % Lymphocytes % % Monocytes % % Eosinophils % % Basophils % % Neutrophils # (1.3-7.7) k/uL Lymphocytes # (1.0-4.8) k/uL Monocytes # (0-1.0) k/uL Eosinophils # (0-0.7) k/uL Basophils # (0-0.2) k/uL PT (9.0-12.0) sec INR (<1.2) APTT (22.0-30.0) sec D-Dimer (<0.60) mg/L FEU Sodium (137-145) mmol/L Potassium (3.5-5.1) mmol/L Chloride (98-107) mmol/L Carbon Dioxide (22-30) mmol/L Anion Gap mmol/L BUN (7-17) mg/dL Creatinine (0.52-1.04) mg/dL Est GFR (CKD-EPI)AfAm (>60 ml/min/1.73 sqM) Est GFR (CKD-EPI)NonAf (>60 ml/min/1.73 sqM) Glucose (74-99) mg/dL Calcium (8.4-10.2) mg/dL Magnesium (1.6-2.3) mg/dL Total Bilirubin (0.2-1.3) mg/dL AST (14-36) U/L ALT (4-34) U/L Alkaline Phosphatase (38-126) U/L Troponin I 0.015 (0.000-0.034) ng/mL Total Protein (6.3-8.2) g/dL Albumin (3.5-5.0) g/dL Disposition Clinical Impression: Syncope Disposition: ADMITTED IP TO THIS [facility] Is patient prescribed a controlled substance at d/c from ED?: No Referrals: Cate Louise DO [Primary Care Provider] - 1-2 days Time of Disposition: 10:04
[2022-06-10 08:28] LABS: Basophils # (A) 0.1 k/uL (0-0.2); Basophils % (A) 1 %; Eosinophils # (A) 0.1 k/uL (0-0.7); Eosinophils % (A) 1 %; HCT 38.9 % (34.0-46.0); Lymphocytes # (A) 3.3 k/uL (1.0-4.8); Lymphocytes % (A) 51 %; MCH 28.3 pg (25.0-35.0); MCHC 33.3 g/dL (31.0-37.0); MCV 84.9 fL (80.0-100.0); Mean Platelet Volume 9.5; Monocytes # (A) 0.5 k/uL (0-1.0); Monocytes % (A) 8 %; Neutrophils # (A) 2.3 k/uL (1.3-7.7); Neutrophils % (A) 36 %; Platelet Count 241 k/uL (150-450); RBC 4.58 m/uL (3.80-5.40); RDW 13.8 % (11.5-15.5); WBC 6.4 k/uL (3.8-10.6)
--- NOTE | 2022-06-10 08:44 | CT ---
EXAMINATION TYPE: CT brain wo con CT DLP: 1099.4 mGycm, Automated exposure control for dose reduction was used. DATE OF EXAM: 06/10/2022 8:39 AM COMPARISON: None. CLINICAL INDICATION:Female, 66 years old with history of syncope TECHNIQUE: Brain: Multiple axial CT images of the brain were obtained without IV contrast. Coronal and sagittal reformats reviewed. FINDINGS: Brain: Extra-axial spaces: No abnormal extra-axial fluid collections. Ventricular system: Within normal limits Cerebral parenchyma: No acute intraparenchymal hemorrhage or mass effect. The rubin-white junction is well differentiated. Cerebellum: Unremarkable. Mass effect: No evidence of midline shift. Intracranial vasculature: unremarkable Soft tissues: Normal. Calvarium/osseous structures: No depressed skull fracture. Paranasal sinuses and mastoid air cells: Clear Visualized orbits: Orbital contents are intact. IMPRESSION: No acute intracranial process.
[2022-06-10 08:47] LABS: INR 1.1 (<1.2); Partial Thromboplastin Time 25.3 sec (22.0-30.0); Prothrombin Time 11.1 sec (9.0-12.0)
[2022-06-10 09:01] LABS: Albumin 4.2 g/dL (3.5-5.0); Calcium 9.6 mg/dL (8.4-10.2); Magnesium 1.5 mg/dL (1.6-2.3); Potassium 3.3 mmol/L (3.5-5.1); Total Bilirubin 0.5 mg/dL (0.2-1.3); Total Protein 6.8 g/dL (6.3-8.2)
[2022-06-10] MEDS ORDERED: SODIUM CHLORIDE 0.9% 500 ML 500 ML IV STA (09:15)
--- NOTE | 2022-06-10 09:29 | XR ---
EXAMINATION TYPE: XR chest 2V DATE OF EXAM: 06/10/2022 9:21 AM COMPARISON: Chest radiographs from 04/02/2022. TECHNIQUE: XR chest 2V Frontal and lateral views of the chest. CLINICAL INDICATION:Female, 66 years old with history of syncope; FINDINGS: Lungs/Pleura: There is no evidence of pleural effusion, focal consolidation, or pneumothorax. Pulmonary vascularity: Unremarkable. Heart/mediastinum: Cardiomediastinal silhouette is unremarkable. Musculoskeletal: No acute osseous pathology. IMPRESSION: No acute cardiopulmonary disease/process.
[2022-06-10] MEDS ORDERED: NALOXONE 0.4 MG/ML 1 ML VIAL IV PRN (10:05)
--- NOTE | 2022-06-10 10:52 | US ---
EXAMINATION TYPE: US venous doppler duplex LE DATE OF EXAM: 06/10/2022 10:32 AM COMPARISON: NONE CLINICAL HISTORY: leg swelling. edema SIDE PERFORMED: Bilateral TECHNIQUE: The lower extremity deep venous system is examined utilizing real time linear array sonog rinku with graded compression, doppler sonography and color-flow sonography. VESSELS IMAGED: Common Femoral Vein Deep Femoral Vein Greater Saphenous Vein * Femoral Vein Popliteal Vein Small Saphenous Vein * Proximal Calf Veins (* superficial vessels) Grayscale, color doppler, spectral doppler imaging performed of the deep veins of the lower extremiti es. There is normal flow, compressibility, vascular waveforms. Right Leg: Negative for DVT Left Leg: Negative for DVT IMPRESSION: No deep venous thrombosis of the bilateral lower extremities.
[2022-06-10] MEDS ORDERED: Magnesium Replacement Protocol 1 EACH MISC MISCELLANE PRN (11:10)
[2022-06-10] MEDS ORDERED: ALPRAZolam 0.5 MG TAB PO PRN (11:21)
[2022-06-10] MEDS ORDERED: ALBUTEROL NEBULIZED 2.5 MG/3 ML INHALATION PRN (11:21)
[2022-06-10] MEDS ORDERED: hydrALAZINE HCL 25 MG TAB PO PRN (11:21)
[2022-06-10] MEDS: SODIUM CHLORIDE 0.9% 1,000 ML IV SCH (11:22)
[2022-06-10] MEDS ORDERED: hydrALAZINE HCL 20 MG/ML 1 ML VIAL IVP PRN (11:27)
--- NOTE | 2022-06-10 11:33 | P.HPIM ---
History of Present Illness She is a pleasant 66 years old -[place] female with past medical history of hypertension, COPD, right nephrectomy. Her PCP is Dr. Travis Singer people Presents because of syncope, she woke up this morning and right away she fell on the floor, the patient thinks she did not pass out but a daughter at bedside states that when she tried to pick her up she passed out and they have difficulty picking her up if and when the EMS came in to see her. However now she is fully awake and oriented and she is back to her baseline. She denies chest pain or dyspnea or coughing. She is on 2 L oxygen via nasal cannula for her COPD, as she states and she does not follow up with solution director. Also she denies abdominal pain vomiting or diarrhea. No urinary complaints like urgency dysuria or change in frequency. No headache dizziness weakness numbness currently. She denies smoking alcohol or illicit drugs. Vitals are stable History is unremarkable CBC. D-dimer is elevated 1.9 Creatinine is elevated 1.4. Liver enzymes elevated. Magnesium low 1.5. Troponin is negative 1 Patient was suspected blood pressure medication hydralazine 25 mg twice a day, metoprolol 100 mg daily and nifedipine 90 mg daily. She states that hydralazine was added last March when she was in [facility], she was taken all her blood pressure medication. However her blood pressure was not used low-normal this morning 108-119 systolic blood pressure and that's without taking any blood pressure medication this morning Review of Systems Review of systems CONSTITUTIONAL: No fever, no malaise, no fatigue. HEENT: No recent visual problems or hearing problems. Denied any sore throat. CARDIOVASCULAR: No orthopnea, PND, no palpitations, no syncope. PULMONARY: No shortness of breath, no cough, no hemoptysis. GASTROINTESTINAL: No diarrhea, no nausea, no vomiting, no abdominal pain. Normoactive bowel sounds. NEUROLOGICAL: No headaches, no weakness, no numbness. HEMATOLOGICAL: Denies any bleeding or petechiae. GENITOURINARY: Denies any burning micturition, frequency, or urgency. MUSCULOSKELETAL/RHEUMATOLOGICAL: Denies any joint pain, swelling, or any muscle pain. ENDOCRINE: Denies any polyuria or polydipsia. Past Medical History Past Medical History: COPD, Hypertension, Renal Disease History of Any Multi-Drug Resistant Organisms: None Reported Past Surgical History: Cholecystectomy Additional Past Surgical History / Comment(s): Right kidney removed Past Anesthesia/Blood Transfusion Reactions: No Reported Reaction Past Psychological History: Depression Smoking Status: Former smoker Past Alcohol Use History: None Reported Past Drug Use History: None Reported Medications and Allergies Home Medications Medication Instructions Recorded Confirmed Type Metoprolol Succinate [Toprol XL] 100 mg PO DAILY 03/24/22 06/10/22 History NIFEdipine [Procardia XL] 90 mg PO DAILY 03/24/22 06/10/22 History cloNIDine HCL [Catapres] 0.3 mg PO TID 03/24/22 06/10/22 History ALPRAZolam [Xanax] 0.5 mg PO BID PRN #2 tab 04/02/22 06/10/22 Rx Acetaminophen Tab [Tylenol] 650 mg PO Q4HR PRN tab 04/02/22 06/10/22 Rx Albuterol Inhaler [Ventolin Hfa 2 puff INHALATION RT-QID PRN each 04/02/22 06/10/22 Rx Inhaler] Albuterol Nebulized [Ventolin 2.5 mg INHALATION RT-QID ml 04/02/22 06/10/22 Rx Nebulized] Famotidine [Pepcid] 20 mg PO DAILY tab 04/02/22 06/10/22 Rx hydrALAZINE HCL [Apresoline] 25 mg PO BID tab 04/02/22 06/10/22 Rx hydrALAZINE HCL [Apresoline] 25 mg PO QID PRN #30 tab 04/02/22 06/10/22 Rx Allergies Allergy/AdvReac Type Severity Reaction Status Date / Time No Known Allergies Allergy Verified 06/10/22 10:35 Physical Exam Vitals: Vital Signs Temp Pulse Resp BP Pulse Ox 06/10/22 08:06 98.7 F 85 18 108/81 95 Intake and Output 06/09/22 06/10/22 06/10/22 22:59 06:59 14:59 Other: Weight 65.771 kg GENERAL: The patient is alert and oriented x3, not in any acute distress. Well developed, well nourished. HEENT: Pupils are round and equally reacting to light. EOMI. No scleral icterus. No conjunctival pallor. Normocephalic, atraumatic. No pharyngeal erythema. No thyromegaly. CARDIOVASCULAR: S1 and S2 present. No murmurs, rubs, or gallops. PULMONARY: Chest is clear to auscultation, no wheezing or crackles. ABDOMEN: Soft, nontender, nondistended, normoactive bowel sounds. No palpable organomegaly. MUSCULOSKELETAL: No joint swelling or deformity. EXTREMITIES: No cyanosis, clubbing, or pedal edema. NEUROLOGICAL: Gross neurological examination did not reveal any focal deficits. SKIN: No rashes. no petechiae. Results CBC & Chem 7: 06/10/22 08:10 06/10/22 08:10 Labs: Abnormal Lab Results - Last 24 Hours (Table) 06/10/22 06/10/22 Range/Units 08:10 08:10 D-Dimer 1.95 H (<0.60) mg/L FEU Sodium 134 L (137-145) mmol/L Potassium 3.3 L (3.5-5.1) mmol/L Chloride 97 L (98-107) mmol/L BUN 18 H (7-17) mg/dL Creatinine 1.42 H (0.52-1.04) mg/dL Glucose 160 H (74-99) mg/dL Magnesium 1.5 L (1.6-2.3) mg/dL Assessment and Plan Assessment: syncope,, rule out cardiac causes, this possibly due to over medication with antihypertensives Acute kidney injury Elevated d-dimer Hypertension COPD, not acute exacerbation History Of right nephrectomy Chronic hypoxic respiratory failure Plan: Check orthostatic vitals Check TSH Start gentle hydrationlogy consult Check echocardiogram Follow-up VQ scan ordered in the emergency room Check ultrasound of the legs We will hold hydralazine, we will lower the dose of nifedipine to 60 mg daily and keep metoprolol. 100 mg with holding parameters. With close monitoring of blood pressure Labs and medication were reviewed.. Continue same treatment. Continue with symptomatic treatment. Resume home medication. Monitor labs and vitals. DVT and GI prophylaxis. Further recommendations as per clinical course of the patient DVT prophylaxis: Subcutaneous heparin GI Prophylaxis: Pepcid PT/OT: Pending Prognosis is guarded
[2022-06-10] MEDS: ALBUTEROL NEBULIZED 2.5 MG/3 ML INHALATION SCH ×3 (12:12→20:40)
[2022-06-10] MEDS ORDERED: AZITHROMYCIN 500 MG in SODIUM CHLORIDE 0.9% 250 ML IVPB SCH (12:45)
--- NOTE | 2022-06-10 13:15 | P.CRDCN ---
History of Present Illness Consult date: 06/10/22 History of present illness: HISTORY OF PRESENT ILLNESS: This is a 66-year-old female with a past medical history significant for anxiety, hypertension, COPD, and former nicotine dependence. 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 We have been asked to see the patient in consultation for syncope. Patient examined at the bedside. Patient states she got up this morning and out of bed and fell to the floor. Patient states she did not have any warning signs that she was going to pass out. She does recall having some left sided chest pain this morning when she woke up. She states that she yelled for her daughter after she fell to the floor and EMS was called. She currently denies chest pain or pressure. She denies shortness of breath. * EKG reveals sinus mechanism with T-wave inversions in inferior, anterior, and lateral leads. Appear new from previous EKG * Chest xray negative for acute process. * CT of the brain: Negative for acute process * Laboratory data: WBC 6.4. Hemoglobin 13.0. Platelet count 241. D-dimer 1.95. Sodium 134. Potassium 3.3. BUN 18. Creatinine 1.42. Magnesium 1.5. Troponin negative 1. * Current home cardiac medications include hydralazine 25 mg twice a day, clonidine 0.3 mg 3 times a day, Procardia 90 mg daily, metoprolol succinate 100 mg daily REVIEW OF SYSTEMS: At the time of my exam: CONSTITUTIONAL: Denies fever or chills. HEENT: Denies blurred vision, vision changes, or eye pain. Denies hemoptysis CARDIOVASCULAR: Denies chest pain. Denies orthopnea. Denies PND. Denies palpitations RESPIRATORY: Denies shortness of breath. GASTROINTESTINAL: Denies abdominal pain. Denies nausea or vomiting. HEMATOLOGIC: Denies bleeding disorders. GENITOURINARY: Denies any blood in urine. SKIN: Denies pruitis. Denies rash. PHYSICAL EXAM: VITAL SIGNS: Reviewed. GENERAL: Well-developed in no acute distress. HEENT: Head is normocephalic. Pupils are equal, round. Sclerae anicteric. Mucous membranes of the mouth are moist. Neck supple. No JVD or thyromegaly LUNGS: Respirations even and unlabored. Lungs essentially clear to auscultation bilaterally. HEART: Regular rate and rhythm. S1 and S2 heard. ABDOMEN: Soft. Nondistended. Nontender. EXTREMITIES: Normal range of motion. No clubbing or cyanosis. Peripheral pulses intact. No lower extremity edema NEUROLOGIC: Awake and alert. Oriented x 3. ASSESSMENT: Syncope Abnormal EKG revealing diffuse T wave inversions Elevated d-dimer, rule out PE Acute kidney injury Hypokalemia Hypertension COPD Former nicotine dependence Anxiety PLAN: Obtain 2-D echo to assess cardiac structure and function Orthostatic blood pressures obtained and reviewed Continue telemetry monitoring to assess for any arrhythmias Continue to monitor blood pressure. Patient may need decrease in some of her antihypertensive medications. Patient scheduled for VQ scan today to rule out PE Further recommendations pending patient's course Nurse practitioner note has been reviewed by physician. Signing provider agrees with the documented findings, assessment, and plan of care. Past Medical History Past Medical History: COPD, Hypertension, Renal Disease History of Any Multi-Drug Resistant Organisms: None Reported Past Surgical History: Cholecystectomy Additional Past Surgical History / Comment(s): Right kidney removed Past Anesthesia/Blood Transfusion Reactions: No Reported Reaction Past Psychological History: Depression Smoking Status: Former smoker Past Alcohol Use History: None Reported Past Drug Use History: None Reported Medications and Allergies Home Medications Medication Instructions Recorded Confirmed Type Metoprolol Succinate [Toprol XL] 100 mg PO DAILY 03/24/22 06/10/22 History NIFEdipine [Procardia XL] 90 mg PO DAILY 03/24/22 06/10/22 History cloNIDine HCL [Catapres] 0.3 mg PO TID 03/24/22 06/10/22 History ALPRAZolam [Xanax] 0.5 mg PO BID PRN #2 tab 04/02/22 06/10/22 Rx Acetaminophen Tab [Tylenol] 650 mg PO Q4HR PRN tab 04/02/22 06/10/22 Rx Albuterol Inhaler [Ventolin Hfa 2 puff INHALATION RT-QID PRN each 04/02/22 06/10/22 Rx Inhaler] Albuterol Nebulized [Ventolin 2.5 mg INHALATION RT-QID ml 04/02/22 06/10/22 Rx Nebulized] Famotidine [Pepcid] 20 mg PO DAILY tab 04/02/22 06/10/22 Rx hydrALAZINE HCL [Apresoline] 25 mg PO BID tab 04/02/22 06/10/22 Rx hydrALAZINE HCL [Apresoline] 25 mg PO QID PRN #30 tab 04/02/22 06/10/22 Rx Allergies Allergy/AdvReac Type Severity Reaction Status Date / Time No Known Allergies Allergy Verified 06/10/22 10:35 Physical Exam Vitals: Vital Signs Temp Pulse Resp BP Pulse Ox 06/10/22 08:06 98.7 F 85 18 108/81 95 Intake and Output 06/09/22 06/10/22 06/10/22 22:59 06:59 14:59 Other: Weight 65.771 kg Results 06/10/22 08:10 06/10/22 08:10 Cardiac Enzymes 06/10/22 06/10/22 Range/Units 08:10 08:10 AST 19 (14-36) U/L Troponin I 0.015 (0.000-0.034) ng/mL Coagulation 06/10/22 Range/Units 08:10 PT 11.1 (9.0-12.0) sec APTT 25.3 (22.0-30.0) sec CBC 06/10/22 Range/Units 08:10 WBC 6.4 (3.8-10.6) k/uL RBC 4.58 (3.80-5.40) m/uL Hgb 13.0 (11.4-16.0) gm/dL Hct 38.9 (34.0-46.0) % Plt Count 241 (150-450) k/uL Comprehensive Metabolic Panel 06/10/22 Range/Units 08:10 Sodium 134 L (137-145) mmol/L Potassium 3.3 L (3.5-5.1) mmol/L Chloride 97 L (98-107) mmol/L Carbon Dioxide 29 (22-30) mmol/L BUN 18 H (7-17) mg/dL Creatinine 1.42 H (0.52-1.04) mg/dL Glucose 160 H (74-99) mg/dL Calcium 9.6 (8.4-10.2) mg/dL AST 19 (14-36) U/L ALT 17 (4-34) U/L Alkaline Phosphatase 69 (38-126) U/L Total Protein 6.8 (6.3-8.2) g/dL Albumin 4.2 (3.5-5.0) g/dL Current Medications Generic Name Dose Route Start Last Admin Trade Name Freq PRN Reason Stop Dose Admin Sodium Chloride 1,000 mls @ 20 mls/hr 06/10/22 10:15 Saline 0.9% IV .Q24H SEYMOUR Naloxone HCl 0.2 mg 06/10/22 10:05 Naloxone 0.4 Mg/Ml 1 Ml Vial IV Q2M PRN Opioid Reversal Intake and Output 06/09/22 06/10/22 06/10/22 22:59 06:59 14:59 Other: Weight 65.771 kg Patient Weight 06/11/22 06:59 Weight 65.771 kg 06/10/22 08:10 06/10/22 08:10
--- NOTE | 2022-06-10 14:44 | NM ---
EXAMINATION TYPE: NM pul vent and perfuse DATE OF EXAM: 06/10/2022 COMPARISON: Chest radiograph same day CLINICAL INDICATION:Female, 66 years old with history of syncope; TECHNIQUE: Utilizing inhalation of 66.3 mCi Tc 99m DTPA aerosol and intravenous injection of 4.94 mC i of Tc 99m MAA, ventilation and perfusion images are acquired post injection in multiple projections . FINDINGS: No wedge-shaped defects are seen throughout the lungs. No mismatched perfusion defects. There is no e vidence of mismatched defects. Few scattered areas of clumping of radiotracer. IMPRESSION: No mismatch defects visualized, no evidence for pulmonary embolism.
[2022-06-10] MEDS ORDERED: Potassium Replacement Protocol 1 EACH MISC MISCELLANE PRN (15:11)
[2022-06-10] MEDS: MAGNESIUM SULFATE-D5W PMX 1 GM in DEXTROSE/WATER 1 100ML.BAG IVPB SCH ×2 (16:00→17:31)
[2022-06-10] MEDS: cloNIDine HCL 0.1 MG TAB PO SCH ×2 (16:00→20:19)
[2022-06-10] MEDS: POTASSIUM CHLORIDE ER 20 MEQ TAB.ER PO SCH ×2 (16:00→17:32)
[2022-06-10] MEDS: FAMOTIDINE 20 MG/2 ML VIAL IV SCH (20:19)
[2022-06-10] MEDS: HEPARIN SODIUM,PORCINE/PF 5,000 UNIT/0.5 ML SYRINGE SQ SCH (20:19)
[2022-06-10] MEDS ORDERED: hydrALAZINE HCL 25 MG TAB PO SCH (21:00)
[2022-06-10 21:14] LABS: Appearance,Urine Clear (Clear); Bilirubin,Urine Negative (Negative); Blood,Urine Negative (Negative); Color,Urine Light Yellow; Glucose,Urine (UA) Negative (Negative); Ketones,Urine Negative (Negative); Leukocyte Esterase,Urine Negative (Negative); Nitrite,Urine Negative (Negative); Protein,Urine Negative (Negative); Specific Gravity,Urine 1.008 (1.001-1.035); Urobilinogen,Urine <2.0 mg/dL (<2.0)
[2022-06-11] MEDS: SODIUM CHLORIDE 0.9% 1,000 ML IV SCH ×4 (00:10→14:52)
[2022-06-11] MEDS: ALBUTEROL NEBULIZED 2.5 MG/3 ML INHALATION SCH ×4 (08:12→20:12)
[2022-06-11] MEDS: HEPARIN SODIUM,PORCINE/PF 5,000 UNIT/0.5 ML SYRINGE SQ SCH ×2 (08:19→21:37)
[2022-06-11] MEDS: cloNIDine HCL 0.1 MG TAB PO SCH ×3 (08:20→21:36)
[2022-06-11] MEDS: METOPROLOL SUCCINATE (ER) 100 MG TAB.ER.24H PO SCH (08:20)
[2022-06-11] MEDS: FAMOTIDINE 20 MG/2 ML VIAL IV SCH (08:20)
[2022-06-11] MEDS ORDERED: CAFFEINE CITRATE 60 MG/3 ML VIAL IV PRN (08:48)
[2022-06-11] MEDS ORDERED: REGADENOSON 0.4 MG/5 ML SYRINGE IV PRN (08:48)
[2022-06-11] MEDS ORDERED: AMINOPHYLLINE 500 MG/20 ML VIAL IV PRN (08:48)
[2022-06-11] MEDS ORDERED: NIFEdipine XL 90 MG TAB.ER.24 PO SCH (09:00)
[2022-06-11 10:38] LABS: Basophils # (A) 0.06 X 10*3/uL (0.00-0.10); Basophils % (A) 0.9 %; Eosinophils # (A) 0.22 X 10*3/uL (0.04-0.35); Eosinophils % (A) 3.3 %; HCT 38.2 % (37.2-46.3); HGB 11.8 g/dL (12.0-15.0); Immature Grans, Automated 0.1 %; Lymphocytes # (A) 2.71 X 10*3/uL (0.90-5.00); Lymphocytes % (A) 40.2 %; MCHC 30.9 g/dL (32.0-37.0); MCV 90.5 fL (80.0-97.0); Mean Platelet Volume 11.6 fL (9.5-12.2); Monocytes # (A) 0.96 X 10*3/uL (0.20-1.00); Monocytes % (A) 14.2 %; NRBC Per 100 WBC 0 /100 WBCS (0.0-0.0); Neutrophils # (A) 2.78 X 10*3/uL (1.80-7.70); Neutrophils % (A) 41.3 %; Platelet Count 217 X 10*3/uL (140-440); RBC 4.22 X 10*6/uL (4.10-5.20); RDW 13.8 % (11.5-14.5); WBC 6.74 X 10*3/uL (4.50-10.00)
--- NOTE | 2022-06-11 10:41 | P.PN ---
Subjective Progress Note Date: 06/11/22 HISTORY OF PRESENT ILLNESS: This is a 66-year-old female with a past medical history significant for anxiety, hypertension, COPD, and former nicotine dependence. 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 We have been asked to see the patient in consultation for syncope. Patient examined at the bedside. Patient states she got up this morning and out of bed and fell to the floor. Patient states she did not have any warning signs that she was going to pass out. She does recall having some left sided chest pain this morning when she woke up. She states that she yelled for her daughter after she fell to the floor and EMS was called. She currently denies chest pain or pressure. She denies shortness of breath. * EKG reveals sinus mechanism with T-wave inversions in inferior, anterior, and lateral leads. Appear new from previous EKG * Chest xray negative for acute process. * CT of the brain: Negative for acute process * Laboratory data: WBC 6.4. Hemoglobin 13.0. Platelet count 241. D-dimer 1.95. Sodium 134. Potassium 3.3. BUN 18. Creatinine 1.42. Magnesium 1.5. Troponin negative 1. * Current home cardiac medications include hydralazine 25 mg twice a day, cloni dine 0.3 mg 3 times a day, Procardia 90 mg daily, metoprolol succinate 100 mg daily 06/11/2022 Patient examined this morning to bedside. Patient denies chest pain or pressure. She denies shortness of breath. Patient underwent VQ scan yesterday which was negative for pulmonary embolism. Vital signs are stable. PHYSICAL EXAM: VITAL SIGNS: Reviewed. GENERAL: Well-developed in no acute distress. HEENT: Head is normocephalic. Pupils are equal, round. Sclerae anicteric. Mucous membranes of the mouth are moist. Neck supple. No JVD or thyromegaly LUNGS: Respirations even and unlabored. Lungs essentially clear to auscultation bilaterally. HEART: Regular rate and rhythm. S1 and S2 heard. ABDOMEN: Soft. Nondistended. Nontender. EXTREMITIES: Normal range of motion. No clubbing or cyanosis. Peripheral pulses intact. No lower extremity edema NEUROLOGIC: Awake and alert. Oriented x 3. ASSESSMENT: Syncope Abnormal EKG revealing diffuse T wave inversions Elevated d-dimer, VQ scan negative for PE Acute kidney injury Hypokalemia Hypertension COPD Former nicotine dependence Anxiety PLAN: 2-D echo ordered. Await results Patient to undergo stress echo today to assess for ischemia Further recommendations pending patient's course Nurse practitioner note has been reviewed by physician. Signing provider agrees with the documented findings, assessment, and plan of care. Objective - Vital Signs Vital signs: Vital Signs Temp 97.6 F 06/11/22 07:00 Pulse 77 06/11/22 10:23 Resp 17 06/11/22 10:23 BP 114/77 06/11/22 10:23 Pulse Ox 98 06/11/22 10:23 FiO2 28 06/10/22 20:40 Intake & Output 06/10/22 06/11/22 06/11/22 18:59 06:59 18:59 Intake Total 240 Balance 240 Weight 65.771 kg Intake: Oral 240 Other: # Voids 1 1 - Labs CBC & Chem 7: 06/11/22 06:36 06/10/22 08:10 Labs: Abnormal Lab Results - Last 24 Hours (Table) 06/11/22 Range/Units 06:36 Hgb 11.8 L (12.0-15.0) g/dL MCHC 30.9 L (32.0-37.0) g/dL
[2022-06-11 10:58] LABS: African American GFR (CKD) 45.6 (60.0-200.0); Albumin 4.1 g/dL (3.8-4.9); Albumin/Globulin Ratio 2.16 (1.60-3.17); Anion Gap 10.9 mmol/L (10.00-18.00); BUN/Creat Ratio 20.57 Ratio (12.00-20.00); Blood Urea Nitrogen 28.8 mg/dL (9.0-27.0); Calcium 9.4 mg/dL (8.7-10.3); Carbon Dioxide 26.1 mmol/L (20.0-27.5); Globulin 1.9 g/dL (1.6-3.3); Magnesium 2.2 mg/dL (1.5-2.4); Non-African American GFR(CKD) 39.3 (60.0-200.0); Potassium 4.2 mmol/L (3.5-5.5); Total Bilirubin 0.4 mg/dL (0.30-1.20)
[2022-06-11] MEDS: ACETAMINOPHEN TAB 325 MG TAB PO PRN ×2 (11:24→21:42)
--- NOTE | 2022-06-11 14:58 | CA ---
Transthoracic Echo Report Name: Светлана Dunaway Age: 66 Gender: F : 1955 Exam Date: 06/11/2022 11:55 Exam Location: [facility] Ht (in): Wt (lb): Ordering Physician: America Plata Attending/Referring Phys: [id number], Boni Government Affairs Researcher Avni Earl RDCS Procedure CPT: Indications: LV function Cardiac Hx: Technical Quality: Fair Contrast 1: Total Dose (mL): Contrast 2: Total Dose (mL): MEASUREMENTS (Male / Female) Normal Values 2D ECHO LV Diastolic Diameter PLAX 4.6 cm 4.2 - 5.9 / 3.9 - 5.3 cm LV Systolic Diameter PLAX 3.4 cm IVS Diastolic Thickness 1.2 cm 0.6 - 1.0 / 0.6 - 0.9 cm LVPW Diastolic Thickness 1.4 cm 0.6 - 1.0 / 0.6 - 0.9 cm LV Relative Wall Thickness 0.6 RV Internal Dim ED PLAX 2.1 cm LV Diastolic Volume MOD 4C 66.7 cm??? LV Systolic Volume MOD 4C 28.6 cm??? LV Ejection Fraction MOD 4C 57.1 % LV Diastolic Length 4C 6.7 cm LV Systolic Length 4C 6.4 cm M-MODE Aortic Root Diameter MM 3.4 cm LA Systolic Diameter MM 4.1 cm LA Ao Ratio MM 1.2 AV Cusp Separation MM 2.2 cm DOPPLER AV Peak Velocity 155.4 cm/s AV Peak Gradient 9.7 mmHg AI Peak Velocity 552.3 cm/s AI Peak Gradient 122.0 mmHg AI Pressure Half Time 687.8 ms LVOT Peak Velocity 101.6 cm/s LVOT Peak Gradient 4.1 mmHg TR Peak Velocity 303.2 cm/s TR Peak Gradient 36.8 mmHg FINDINGS Left Ventricle Mildly increased septal wall thickness. Moderately increased posterior wall thickness. Left ventricular hypertrophy. Left ventricular ejection fraction is estimated at 50-55 %. Right Ventricle Normal right ventricular size and function. Right ventricular systolic pressure estimated at 41 mm hg. Right Atrium Normal right atrial size. Left Atrium Mild left atrial dilatation. Mitral Valve Mitral valve thickened. Mild mitral regurgitation. Aortic Valve Thickened trileaflet aortic valve without stenosis. Moderate aortic regurgitation. Tricuspid Valve Moderate tricuspid regurgitation. Pulmonic Valve Structurally normal pulmonic valve. Pericardium No pericardial effusion. No pleural effusion. Aorta Aortic root dilatation. CONCLUSIONS Normal biventricular dimension and systolic function Moderate aortic regurgitation Moderate tricuspid regurgitation Aortic root dilation Previewed by: Dr. Calixto Ruiz MD (Electronically Signed) Final Date: 11 June 2022 14:57
--- NOTE | 2022-06-11 14:59 | CA ---
Stress Echo Report Светлана Dunaway Age: 66 Gender: F : 1955 Exam Date: 06/11/2022 11:38 Exam Location: [facility] Ht (in): 66 Wt (lb): 145 Ordering Physician: America Plata Referring Physician: [id number] Inspector [employer]semblies [employer] Installations: LESLYE Technologist Procedure CPT: Indication: cp, syncope ICD-9 Codes: Rhythm: Patient History: LINDSEY, PALPITATIONS, HTN, ELEVATED CHOLESTEROL LEVELS, FORMER SMOKER (QUIT 3 MONTHS) 1 PPD X 40 YEARS Cardiac Medications: Medications in past 24 hours: Contrast: Stress Results Protocol: Rolf Total dose(mL): Exercise Duration (min:sec): 2:[address] Depression (mm): Angina Score: Gill Score: METS: 3.4 Resting HR: 122 Resting BP: 168 / 98 Peak HR: 157 Peak BP: 218 / 110 Max Predicted HR: 155 101 % Max Predicted HR Target HR: 132 Double Product: [id number] Stress Summary: BP Response: Reason for Termination: MAX EXERTION/TARGET HR Cardiac Symptoms: DIFFICULTY IN BREATHING ECG Analysis Resting ECG: Stress ECG: Arrhythmia: Echo Analysis Resting Echo: Peak Echo Analysis: MEASUREMENTS (Male/Female) Normal Values CONCLUSIONS Normal stress echocardiogram Poor functional capacity Dr. Calixto Ruiz MD (Electronically Signed) Final Date: 11 June 2022 14:58
--- NOTE | 2022-06-11 19:36 | P.PN ---
Subjective She is a pleasant 66 years old -[place] female with past medical history of hypertension, COPD, right nephrectomy. Her PCP is Dr. Travis Singer people Presents because of syncope, she woke up this morning and right away she fell on the floor, the patient thinks she did not pass out but a daughter at bedside states that when she tried to pick her up she passed out and they have difficulty picking her up if and when the EMS came in to see her. However now she is fully awake and oriented and she is back to her baseline. She denies chest pain or dyspnea or coughing. 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 Also she denies abdominal pain vomiting or diarrhea. No urinary complaints like urgency dysuria or change in frequency. No headache dizziness weakness numbness currently. She denies smoking alcohol or illicit drugs. Vitals are stable History is unremarkable CBC. D-dimer is elevated 1.9 Creatinine is elevated 1.4. Liver enzymes elevated. Magnesium low 1.5. Troponin is negative 1 Patient was suspected blood pressure medication hydralazine 25 mg twice a day, metoprolol 100 mg daily and nifedipine 90 mg daily. She states that hydralazine was added last March when she was in [facility] [place], she was taken all her blood pressure medication. However her blood pressure was not used low-normal this morning 108-119 systolic blood pressure and that's without taking any blood pressure medication this morning 06/11/2022 Patient today feels better, no dizziness, no numbness, no other complaints, no chest pain Vitas looks stable, blood pressure still low normal for example systolic around 110-120. Nifedipine 90 mg she was taken at home was held. Well continued she is on metoprolol 100 mg and clonidine. She has evidence of orthostatic hypotension and she kept on IV hydration. Today she underwent stress test with granite worker and cleared her for discharge Echocardiogram shows evidence of ejection fraction of 50-55% with moderate mitral regurgitation and aortic regurgitation. Creatinine stable at 1.4. We'll keep gentle hydration Possible discharge in 24-48 hours if she keeps improving Objective - Vital Signs Vital signs: Vital Signs Temp 97.6 F 06/11/22 07:00 Pulse 77 06/11/22 10:23 Resp 17 06/11/22 10:23 BP 114/77 06/11/22 10:23 Pulse Ox 98 06/11/22 10:23 FiO2 28 06/10/22 20:40 Intake & Output 06/10/22 06/11/22 06/11/22 18:59 06:59 18:59 Intake Total 240 Balance 240 Weight 65.771 kg Intake: Oral 240 Other: # Voids 1 1 - Exam GENERAL: The patient is alert and oriented x3, not in any acute distress. Well developed, well nourished. HEENT: Pupils are round and equally reacting to light. EOMI. No scleral icterus. No conjunctival pallor. Normocephalic, atraumatic. No pharyngeal erythema. No thyromegaly. CARDIOVASCULAR: S1 and S2 present. No murmurs, rubs, or gallops. PULMONARY: Chest is clear to auscultation, no wheezing or crackles. ABDOMEN: Soft, nontender, nondistended, normoactive bowel sounds. No palpable organomegaly. MUSCULOSKELETAL: No joint swelling or deformity. EXTREMITIES: No cyanosis, clubbing, or pedal edema. NEUROLOGICAL: Gross neurological examination did not reveal any focal deficits. SKIN: No rashes. no petechiae. - Labs CBC & Chem 7: 06/11/22 06:36 06/11/22 06:36 Labs: Abnormal Lab Results - Last 24 Hours (Table) 06/11/22 06/11/22 Range/Units 06:36 06:36 Hgb 11.8 L (12.0-15.0) g/dL MCHC 30.9 L (32.0-37.0) g/dL BUN 28.8 H (9.0-27.0) mg/dL Est GFR (CKD-EPI)AfAm 45.6 L (60.0-200.0) Est GFR (CKD-EPI)NonAf 39.3 L (60.0-200.0) BUN/Creatinine Ratio 20.57 H (12.00-20.00) Ratio Glucose 111 H (70-110) mg/dL AST 12 L (13-35) U/L Total Protein 6.0 L (6.2-8.2) g/dL TSH 0.302 L (0.350-5.500) uIU/mL Assessment and Plan Assessment: syncope,, with negative stress test, this possibly due to over medication with antihypertensives. Orthostatic hypotension was positive Acute kidney injury, versus chronic kidney disease stage III, unknown baseline Elevated d-dimer with low probability of PE per B/VQ scan with negative u ltrasound of the legs for DVT Hypertension COPD, not acute exacerbation History Of right nephrectomy Chronic hypoxic respiratory failure Plan: Continue with IV hydration for another 24 hours Patient was cleared for discharge by granite worker after negative stress test We will hold hydralazine, discontinue nifedipine to 90 mg daily and keep metoprolol. 100 mg with holding parameters. Continue with the clonidine. With close monitoring of blood pressure Labs and medication were reviewed.. Continue same treatment. Continue with symptomatic treatment. Resume home medication. Monitor labs and vitals. DVT and GI prophylaxis. Further recommendations as per clinical course of the patient DVT prophylaxis: Subcutaneous heparin GI Prophylaxis: Pepcid PT/OT: Home
[2022-06-11 23:31] VITALS: RESP 18
[2022-06-12] MEDS: SODIUM CHLORIDE 0.9% 1,000 ML IV SCH ×3 (00:23→17:10)
[2022-06-12] MEDS: ALBUTEROL NEBULIZED 2.5 MG/3 ML INHALATION SCH ×3 (07:20→15:02)
[2022-06-12] MEDS ORDERED: FAMOTIDINE 20 MG TAB PO SCH ×2 (09:00→21:00)
[2022-06-12] MEDS: cloNIDine HCL 0.1 MG TAB PO SCH ×2 (09:24→16:14)
[2022-06-12] MEDS: METOPROLOL SUCCINATE (ER) 100 MG TAB.ER.24H PO SCH (09:24)
[2022-06-12] MEDS: HEPARIN SODIUM,PORCINE/PF 5,000 UNIT/0.5 ML SYRINGE SQ SCH (09:24)
[2022-06-12 09:29] LABS: African American GFR (CKD) 68.5 (60.0-200.0); Anion Gap 11.1 mmol/L (10.00-18.00); BUN/Creat Ratio 16.1 Ratio (12.00-20.00); Blood Urea Nitrogen 16.1 mg/dL (9.0-27.0); Carbon Dioxide 27.9 mmol/L (20.0-27.5); Non-African American GFR(CKD) 59.1 (60.0-200.0); Potassium 4.1 mmol/L (3.5-5.5)
[2022-06-12] MEDS: ACETAMINOPHEN TAB 325 MG TAB PO PRN (09:42)
--- NOTE | 2022-06-12 09:48 | P.PN ---
Subjective Progress Note Date: 06/12/22 HISTORY OF PRESENT ILLNESS: This is a 66-year-old female with a past medical history significant for anxiety, hypertension, COPD, and former nicotine dependence. 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 We have been asked to see the patient in consultation for syncope. Patient examined at the bedside. Patient states she got up this morning and out of bed and fell to the floor. Patient states she did not have any warning signs that she was going to pass out. She does recall having some left sided chest pain this morning when she woke up. She states that she yelled for her daughter after she fell to the floor and EMS was called. She currently denies chest pain or pressure. She denies shortness of breath. * EKG reveals sinus mechanism with T-wave inversions in inferior, anterior, and lateral leads. Appear new from previous EKG * Chest xray negative for acute process. * CT of the brain: Negative for acute process * Laboratory data: WBC 6.4. Hemoglobin 13.0. Platelet count 241. D-dimer 1.95. Sodium 134. Potassium 3.3. BUN 18. Creatinine 1.42. Magnesium 1.5. Troponin negative 1. * Current home cardiac medications include hydralazine 25 mg twice a day, cloni dine 0.3 mg 3 times a day, Procardia 90 mg daily, metoprolol succinate 100 mg daily 06/11/2022 Patient examined this morning to bedside. Patient denies chest pain or pressure. She denies shortness of breath. Patient underwent VQ scan yesterday which was negative for pulmonary embolism. Vital signs are stable. 06/12/2022 Patient examined this morning at the bedside. Patient denies chest pain or pressure. She denies shortness of breath. Patient underwent stress echocardio gram yesterday which was negative for ischemia. Echocardiogram completed revealing normal LV systolic function, moderate aortic regurgitation, moderate tricuspid regurgitation. PHYSICAL EXAM: VITAL SIGNS: Reviewed. GENERAL: Well-developed in no acute distress. HEENT: Head is normocephalic. Pupils are equal, round. Sclerae anicteric. Mucous membranes of the mouth are moist. Neck supple. No JVD or thyromegaly LUNGS: Respirations even and unlabored. Lungs essentially clear to auscultation bilaterally. HEART: Regular rate and rhythm. S1 and S2 heard. Systolic murmur noted. ABDOMEN: Soft. Nondistended. Nontender. EXTREMITIES: Normal range of motion. No clubbing or cyanosis. Peripheral pulses intact. No lower extremity edema NEUROLOGIC: Awake and alert. Oriented x 3. ASSESSMENT: Syncope Abnormal EKG revealing diffuse T wave inversions, status post stress echo with no evidence of ischemia Elevated d-dimer, VQ scan negative for PE Acute kidney injury Hypokalemia Hypertension COPD Former nicotine dependence Anxiety PLAN: Continue current cardiac medications Patient is stable for discharge home today from a cardiac standpoint She is to follow up outpatient with Dr. Ruiz Nurse practitioner note has been reviewed by physician. Signing provider agrees with the documented findings, assessment, and plan of care. Objective - Vital Signs Vital signs: Vital Signs Temp 98.2 F 06/12/22 07:00 Pulse 113 H 06/12/22 09:25 Resp 18 06/12/22 07:00 BP 168/120 06/12/22 09:25 Pulse Ox 100 06/12/22 07:20 FiO2 28 06/10/22 20:40 Intake & Output 06/11/22 06/12/22 06/12/22 18:59 06:59 18:59 Intake Total 118 240 Balance 118 240 Intake: Oral 118 240 Other: # Voids 4 4 1 - Labs CBC & Chem 7: 06/11/22 06:36 06/12/22 05:28 Labs: Abnormal Lab Results - Last 24 Hours (Table) 06/11/22 06/11/22 06/12/22 Range/Units 06:36 06:36 05:28 Hgb 11.8 L (12.0-15.0) g/dL MCHC 30.9 L (32.0-37.0) g/dL Carbon Dioxide 27.9 H (20.0-27.5) mmol/L BUN 28.8 H (9.0-27.0) mg/dL Est GFR (CKD-EPI)AfAm 45.6 L (60.0-200.0) Est GFR (CKD-EPI)NonAf 39.3 L 59.1 L (60.0-200.0) BUN/Creatinine Ratio 20.57 H (12.00-20.00) Ratio Glucose 111 H 143 H (70-110) mg/dL AST 12 L (13-35) U/L Total Protein 6.0 L (6.2-8.2) g/dL TSH 0.302 L (0.350-5.500) uIU/mL
[2022-06-12 15:06] VITALS: TEMP 98
[2022-06-12 17:52] VITALS: BP 147/96; PULSE 95
== END 2022-06-12 18:10 | disposition home or self-care (01) | DRG 312 ==
LOC: EC 08:05 → 3SCARD 10:07 → INTOOBSV 10:07 → 6NMEDSUR 10:15 → OBSVTOIN 06-12 07:56
PROVIDERS: ADMIT Internal Medicine; ATTEND Internal Medicine
DX: I95.1 Orthostatic hypotension (principal); N17.9 Acute kidney failure, unspecified; J96.11 Chronic respiratory failure with hypoxia; I11.9 Hypertensive heart disease without heart failure; J44.9 Chronic obstructive pulmonary disease, unspecified; I08.3 Combined rheumatic disorders of mitral, aortic and tricuspid valves; I77.819 Aortic ectasia, unspecified site; F41.9 Anxiety disorder, unspecified; T46.5X1A Poisoning by other antihypertensive drugs, accidental (unintentional), initial encounter; E87.6 Hypokalemia; R74.8 Abnormal levels of other serum enzymes; R94.31 Abnormal electrocardiogram [ECG] [EKG]; R79.89 Other specified abnormal findings of blood chemistry; R01.1 Cardiac murmur, unspecified; W06.XXXA Fall from bed, initial encounter; Z99.81 Dependence on supplemental oxygen; Z79.01 Long term (current) use of anticoagulants; Y92.003 Bedroom of unspecified non-institutional (private) residence as the place of occurrence of the external cause; Z79.899 Other long term (current) drug therapy; Z79.51 Long term (current) use of inhaled steroids; Z79.4 Long term (current) use of insulin; Z90.5 Acquired absence of kidney; Z87.891 Personal history of nicotine dependence
CPT/HCPCS: 36415; 70450; 71046; 78582; 80048; 80053; 81003; 83735; 84439; 84443; 84484; 85025; 85379; 85610; 85730; 93005; 93306; 93351; 93970; 94640; 94760; 96360; 96361; 99285